=== PATIENT | male | born 1970 | race Caucasian/White ===

== ENCOUNTER 2017-06-13 15:15 | Emergency (ER) | payer BC, OTHER ==
[~2017-06-13] VITALS: Ht 188 cm; Wt 99.6 kg
[~2017-06-13 15:15] MED LIST: GLC/500 PO; LRS10 PO; MTR800 PO; NRN300 PO; NRN600 PO; OXYC7.5T62 PO
[2017-06-13 15:18] VITALS: TEMP 36.6; Ht 188 cm; Wt 99.6 kg
[2017-06-13] MEDS ORDERED: HYDROmorphone INJ 2 MG/ML SYR/VIAL IM STA (15:49)
[2017-06-13] MEDS ORDERED: CYCLOBENZAPRINE HCL 10 MG TAB PO STA (15:49)
[2017-06-13] MEDS ORDERED: KETOROLAC TROMETHAMINE 60 MG/2 ML VIAL IM STA (15:49)
[2017-06-13] MEDS ORDERED: ONDANSETRON 4MG OD TAB PO STA (15:49)
[2017-06-13] MEDS ORDERED: GLC/500 PO (16:14)
--- NOTE | 2017-06-13 16:33 | DIAGNOSTIC IMAGING REPORT ---
L SHOULDER MIN 2 VIEWS ROUTINE CLINICAL HISTORY: LEFT SHOULDER PAIN COMPARISON: None. DISCUSSION: No acute fractures or dislocations are visualized. There is a humeral head bone island. There are postsurgical changes within the cervical spine. IMPRESSION: No fractures or dislocations identified. No destructive lesions are visualized on conventional radiographic imaging Electronically signed by: Leonid Torres M.D. 06/13/2017 4:31 PM Dictated Date/Time: 06/13/2017 4:30 PM
--- NOTE | 2017-06-13 16:35 | DIAGNOSTIC IMAGING REPORT ---
C-SPINE ROUTINE 4 OR 5 VIEWS CLINICAL HISTORY: LEFT CERVICAL RADICULOPATHY COMPARISON STUDY: 05/26/2012, CT scan dated 04/21/2015 FINDINGS: There are postsurgical changes of a C4-C6 spinal fusion. There is an anterior metallic plate at the C5-6 level. There are no acute fractures or subluxations. There are progressive degenerative changes at the C3-4 and C6-7 levels. IMPRESSION: Postsurgical change. Progressive degenerative changes at the C3-4 and C6-7 levels. Electronically signed by: Leonid Torres M.D. 06/13/2017 4:33 PM Dictated Date/Time: 06/13/2017 4:32 PM
[2017-06-13] MEDS ORDERED: METH4PAK PO (17:10)
[2017-06-13] MEDS ORDERED: LRS10 PO (17:10)
[2017-06-13] MEDS ORDERED: OXYC1TAB3 PO (17:10)
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
[2017-06-13 17:22] VITALS: BP 117/76; PULSE 64; O2SAT 96
== END 2017-06-13 17:23 | disposition home or self-care (01) ==
LOC: C.EDB 15:17 → C.EDD 17:23
DX: M54.2 Cervicalgia (principal); M25.512 Pain in left shoulder; M50.01 Cervical disc disorder with myelopathy, high cervical region; M50.023 Cervical disc disorder at C6-C7 level with myelopathy; E11.9 Type 2 diabetes mellitus without complications; Z79.899 Other long term (current) drug therapy; Z88.0 Allergy status to penicillin; Z88.6 Allergy status to analgesic agent

== ENCOUNTER 2022-01-13 16:23 | Inpatient (IN) ==
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
[2022-01-13 17:26] LABS: Appearance Urine Cloudy (Clear); Bacteria Urine Automated 2+ (Negative); Bilirubin Urine Negative (Negative); Blood Urine Negative (Negative); Color Urine Yellow; Epithelial Cell Urine Auto >30 /lpf (0-5); Glucose Urine UA Negative (Negative); Ketones Urine Negative (Negative); Leukocyte Esterase Urine 1+ (Negative); Nitrite Urine Negative (Negative); Protein Urine Negative (Negative); RBC Urine Automated 0-4 /hpf (0-4); Specific Gravity Urine 1.012 (1.000-1.030); Urobilinogen Urine Negative (Negative); pH Urine 5.5 (4.5-7.5)
[2022-01-13 17:27] LABS: Basophils # (auto) 0.05 K/uL (0-0.2); Basophils % (auto) 0.5 %; Eosinophils # (auto) 0.17 K/uL (0-0.50); Eosinophils % (auto) 1.6 %; Hematocrit (blood only) 42.7 % (40.1-51.0); Hemoglobin 14.6 g/dl (14.0-18.0); Immature Granulocytes # (auto) 0.04 K/uL (0.00-0.02); Immature Granulocytes % (auto) 0.4 %; Lymphocytes # (auto) 4.06 K/uL (1.2-3.4); Lymphocytes % (auto) 37.6 %; Mean Corpuscular Hemoglobin 30.9 pg (25.0-34.0); Mean Corpuscular Hgb Conc 34.2 g/dL (32.0-36.0); Mean Corpuscular Volume 90.5 fL (80.0-100.0); Mean Platelet Volume 10.5 fL (9.4-12.4); Monocytes # (auto) 0.66 K/uL (0.24-0.82); Monocytes % (auto) 6.1 %; Neutrophils # (auto) 5.82 K/uL (1.4-6.5); Neutrophils % (auto) 53.8 %; Platelet Count 226 K/uL (130-400); RDW Coefficient of Variation 12.9 % (11.5-14.5); RDW Standard Deviation 42.6 fL (36.4-46.3); Red Blood Count 4.72 M/uL (4.63-6.08)
[2022-01-13 17:49] LABS: Alanine Aminotransferase 47 U/L (7-52); Albumin Globulin Ratio 1.2 (0.9-2); Albumin Level 4.4 gm/dl (3.4-5.0); Alkaline Phosphatase 53 U/L (34-104); Anion Gap 8 (3-11); Aspartate Aminotransferase 22 U/L (13-39); BUN Creatinine Ratio 14.5 (10-20); Bilirubin,Total 0.5 mg/dl (0.2-1.0); Blood Urea Nitrogen 17 mg/dl (6-23); Calcium 9.8 mg/dl (8.5-10.1); Carbon Dioxide 29 mmol/L (21-32); Chloride 102 mmol/L (98-107); Est GFR (African American) 83.8 ml/min; Est GFR (Non-African American) 72.3 ml/min; Globulin 3.7 gm/dl (2.5-4.0); Glucose 296 mg/dl (70-99(Fasting)); Potassium 3.2 mmol/L (3.5-5.1); Sodium 139 mmol/L (136-145); Total Protein 8.1 gm/dl (6.0-8.3)
[2022-01-13] MEDS ORDERED: HYDROmorphone INJ 0.5 MG/0.5 ML SYR IV STA (19:07)
[2022-01-13] MEDS ORDERED: LIDOCAINE 5% 1 PATCH TD STA (19:07)
[2022-01-13] MEDS ORDERED: ONDANSETRON INJ 2 MG/ML 2 ML VIAL IV STA (19:07)
--- NOTE | 2022-01-13 19:09 | Emergency Department Note ---
History of Present Illness General Chief complaint: Lower Extremity Injury/Pain Stated complaint: REFERRED BY DOC,NECK AND BACK PAIN, Time Seen by Provider: 01/13/22 18:59 History of Present Illness This is a 51-year-old male that presents to the emergency department via private vehicle accompanied by female with complaints of "referred, Neck and back pain". The patient notes that on December 23 of this year he sustained an injury while at work. He was seen and evaluated in [place] at the emergency dep artment. He notes that he has had x-rays and CT scans since that time of his affected areas. Today he had a follow-up with [facility] and was evaluated in the spine department by Hayden Bradford PA-C. Patient states that he was referred here for further evaluation and management. Patient notes leg weakness. Patient notes severe back pain and over the past 5 days has been laying in bed secondary to his severe low back pain. Current pain at this time is severe. No bowel or bladder incontinence. No numbness or tingling in genital region. Home Medications Medication Instructions Recorded Confirmed Type acetaminophen 500 mg tablet 1,000 mg PO Q6H PRN Pain 01/13/22 01/13/22 History (Tylenol Extra Strength) ibuprofen 200 mg tablet 400 mg PO Q6H PRN Pain 01/13/22 01/13/22 History prednisone 20 mg tablet 60 mg PO DAILY 01/13/22 01/13/22 History Allergies Allergy/AdvReac Type Severity Reaction Status Date / Time Penicillins Allergy Mild HIVES Verified 01/13/22 19:49 morphine AdvReac Intermediate n&v Verified 01/13/22 19:49 Past Med/Surg History Medical History Cervical radiculopathy Diabetes Shoulder pain Surgical History H/O wrist surgery Family History (Updated 02/01/19 @ 09:28 by Renu Osorio) Mother Cancer Social History Smoking Status: Never smoker Preferred Language: Portuguese Hearing Ability: Normal Feels Safe at Home: Yes Review of Systems A total of 10 systems reviewed and were otherwise negative Physical Exam Vital Signs Vital Signs - 24 hr 01/13/22 16:49 01/13/22 20:29 01/13/22 20:30 Temperature 36.8 C Temperature Source Temporal Artery Scan Pulse Rate 107 H Pulse Rate from SpO2 Sensor 58 L Respiratory Rate 18 Respiratory Effort / Characteristics Non-Labored Respiratory Depth Normal Blood Pressure 187/118 H 146/97 H Blood Pressure Mean 141 113 Pulse Oximetry 97 96 Oxygen Delivery Method Room Air Sepsis Recent Fever Within 48 Hours No Sepsis New/Unexplained Change in Mental Status No Sepsis Action Taken by Nursing No Action Required 01/13/22 20:30 01/13/22 20:40 01/13/22 20:50 Temperature Temperature Source Pulse Rate Pulse Rate from SpO2 Sensor 58 L 75 74 Respiratory Rate Respiratory Effort / Characteristics Respiratory Depth Blood Pressure Blood Pressure Mean Pulse Oximetry 96 97 97 Oxygen Delivery Method Sepsis Recent Fever Within 48 Hours Sepsis New/Unexplained Change in Mental Status Sepsis Action Taken by Nursing 01/13/22 21:00 01/13/22 21:00 01/13/22 21:10 Temperature Temperature Source Pulse Rate Pulse Rate from SpO2 Sensor 67 61 Respiratory Rate Respiratory Effort / Characteristics Respiratory Depth Blood Pressure 159/97 H Blood Pressure Mean 117 Pulse Oximetry 96 98 Oxygen Delivery Method Sepsis Recent Fever Within 48 Hours Sepsis New/Unexplained Change in Mental Status Sepsis Action Taken by Nursing VITAL SIGNS - Vital signs and nursing notes were reviewed. Hypertensive, otherwise stable. GENERAL - 51-year-old male appearing his stated age who is in no acute distress. Communicates well with provider and answers questions appropriately. SKIN - Without rashes. HEAD - NC/AT. EYES - Sclera anicteric. EARS - No deformities of external structures noted on gross examination bilaterally. NOSE - Midline and without cyanosis. No epistaxis or purulent drainage noted. MOUTH/OROPHARYNX - Without perioral cyanosis. NECK - Neck with FROM. No nuchal rigidity. LUNGS - Chest wall symmetric without accessory muscle use, intercostals retractions, or central cyanosis. Normal vesicular breath sounds CTA B/L. No wheezes, rales, or rhonchi appreciated. CARDIAC - RRR with S1/S2. No murmur, rubs, or gallops appreciated. ABDOMEN - Abdominal contour normal without pulsations or visible masses. BS normoactive all four quadrants. No tenderness, palpable masses, hepatosplenomegaly, or ascites noted. EXTREMITIES - No clubbing or peripheral cyanosis. +5/5 strength noted in UE/LE bilaterally. Patient slow to move his lower extremities noting discomfort in the low back. Sensory intact throughout the lower extremities. NEUROLOGIC - Cranial nerves II through XII grossly intact. PSYCH - A&O, and cooperates fully with examiner. Pt is very pleasant and interacts well with examiner. Course Administered Medications Discontinued Medications Hydromorphone HCl (Hydromorphone Inj 0.5 Mg/0.5 Ml Syr) 0.5 mg IV NOW STA Stop: 01/13/22 19:08 Last Admin: 01/13/22 19:28 Dose: 0.5 mg Documented By: [id number] Lidocaine (Lidocaine 5% 1 Patch) 1 patch TD NOW STA Stop: 01/13/22 19:08 Last Admin: 01/13/22 19:29 Dose: 1 patch Documented By: [id number] Ondansetron HCl (Ondansetron Inj 2 Mg/Ml 2 Ml Vial) 4 mg IV NOW STA Stop: 01/13/22 19:08 Last Admin: 01/13/22 19:30 Dose: 4 mg Documented By: [id number] Medical Decision Making Laboratory Data Result diagrams: 01/13/22 17:02 01/13/22 17:02 Lab Results 01/13/22 01/13/22 01/13/22 Range/Units 17:01 17:02 17:02 WBC 10.80 (4.8-10.8) K/ul RBC 4.72 (4.63-6.08) M/uL Hgb 14.6 (14.0-18.0) g/dl Hct 42.7 (40.1-51.0) % MCV 90.5 (80.0-100.0) fL MCH 30.9 (25.0-34.0) pg MCHC 34.2 (32.0-36.0) g/dL RDW Std Deviation 42.6 (36.4-46.3) fL RDW Coeff of Tulio 12.9 (11.5-14.5) % Plt Count 226 (130-400) K/uL MPV 10.5 (9.4-12.4) fL Immature Gran % (Auto) 0.4 % Neut % (Auto) 53.8 % Lymph % (Auto) 37.6 % [place] % (Auto) 6.1 % Eos % (Auto) 1.6 % Baso % (Auto) 0.5 % Neut # (Auto) 5.82 (1.4-6.5) K/uL Lymph # (Auto) 4.06 H (1.2-3.4) K/uL [place] # (Auto) 0.66 (0.24-0.82) K/uL Eos # (Auto) 0.17 (0-0.50) K/uL Baso # (Auto) 0.05 (0-0.2) K/uL Immature Gran # (Auto) 0.04 H (0.00-0.02) K/uL Sodium 139 (136-145) mmol/L Potassium 3.2 L (3.5-5.1) mmol/L Chloride 102 (98-107) mmol/L Carbon Dioxide 29 (21-32) mmol/L Anion Gap 8 (3-11) BUN 17 (6-23) mg/dl Creatinine 1.17 (0.6-1.4) mg/dl Est Cr Clr Drug Dosing Not Reportable Est GFR ( Amer) 83.8 ml/min Est GFR (Non-Af Amer) 72.3 ml/min BUN/Creatinine Ratio 14.5 (10-20) Glucose 296 H (70-99(Fasting)) mg/dl Calcium 9.8 (8.5-10.1) mg/dl Total Bilirubin 0.5 (0.2-1.0) mg/dl AST 22 (13-39) U/L ALT 47 (7-52) U/L Alkaline Phosphatase 53 (34-104) U/L Total Protein 8.1 (6.0-8.3) gm/dl Albumin 4.4 (3.4-5.0) gm/dl Globulin 3.7 (2.5-4.0) gm/dl Albumin/Globulin Ratio 1.2 (0.9-2) Urine Color Yellow Urine Appearance Cloudy A (Clear) Urine pH 5.5 (4.5-7.5) Ur Specific [place] 1.012 (1.000-1.030) Urine Protein Negative (Negative) Urine Glucose (UA) Negative (Negative) Urine Ketones Negative (Negative) Urine Blood Negative (Negative) Urine Nitrite Negative (Negative) Urine Bilirubin Negative (Negative) Urine Urobilinogen Negative (Negative) Ur Leukocyte Esterase 1+ H (Negative) Urine WBC (Auto) 5-10 H (0-5) /hpf Urine RBC (Auto) 0-4 (0-4) /hpf U Hyaline Cast (Auto) 1-5 (0-5) /lpf U Epithel Cells (Auto) >30 H (0-5) /lpf Urine Bacteria (Auto) 2+ H (Negative) SARS-CoV-2, RNA, NAAT (NEGATIVE) 01/13/22 Range/Units 19:40 WBC (4.8-10.8) K/ul RBC (4.63-6.08) M/uL Hgb (14.0-18.0) g/dl Hct (40.1-51.0) % MCV (80.0-100.0) fL MCH (25.0-34.0) pg MCHC (32.0-36.0) g/dL RDW Std Deviation (36.4-46.3) fL RDW Coeff of Tulio (11.5-14.5) % Plt Count (130-400) K/uL MPV (9.4-12.4) fL Immature Gran % (Auto) % Neut % (Auto) % Lymph % (Auto) % [place] % (Auto) % Eos % (Auto) % Baso % (Auto) % Neut # (Auto) (1.4-6.5) K/uL Lymph # (Auto) (1.2-3.4) K/uL [place] # (Auto) (0.24-0.82) K/uL Eos # (Auto) (0-0.50) K/uL Baso # (Auto) (0-0.2) K/uL Immature Gran # (Auto) (0.00-0.02) K/uL Sodium (136-145) mmol/L Potassium (3.5-5.1) mmol/L Chloride (98-107) mmol/L Carbon Dioxide (21-32) mmol/L Anion Gap (3-11) BUN (6-23) mg/dl Creatinine (0.6-1.4) mg/dl Est Cr Clr Drug Dosing Est GFR ( Amer) ml/min Est GFR (Non-Af Amer) ml/min BUN/Creatinine Ratio (10-20) Glucose (70-99(Fasting)) mg/dl Calcium (8.5-10.1) mg/dl Total Bilirubin (0.2-1.0) mg/dl AST (13-39) U/L ALT (7-52) U/L Alkaline Phosphatase (34-104) U/L Total Protein (6.0-8.3) gm/dl Albumin (3.4-5.0) gm/dl Globulin (2.5-4.0) gm/dl Albumin/Globulin Ratio (0.9-2) Urine Color Urine Appearance (Clear) Urine pH (4.5-7.5) Ur Specific [place] (1.000-1.030) Urine Protein (Negative) Urine Glucose (UA) (Negative) Urine Ketones (Negative) Urine Blood (Negative) Urine Nitrite (Negative) Urine Bilirubin (Negative) Urine Urobilinogen (Negative) Ur Leukocyte Esterase (Negative) Urine WBC (Auto) (0-5) /hpf Urine RBC (Auto) (0-4) /hpf U Hyaline Cast (Auto) (0-5) /lpf U Epithel Cells (Auto) (0-5) /lpf Urine Bacteria (Auto) (Negative) SARS-CoV-2, RNA, NAAT NEGATIVE (NEGATIVE) Imaging Data Radiologist's Impression: Lumbar Spine MRI 01/13/22 16:54 MRI OF THE LUMBAR SPINE WITHOUT IV CONTRAST CLINICAL HISTORY: Low back pain. Leg weakness. COMPARISON STUDY: No priors. TECHNIQUE: MRI of the lumbar spine is performed utilizing various T1 and T2- weighted sequences in the axial and sagittal planes. IV contrast was not administered for this examination. The examination is modestly degraded by motion artifact. FINDINGS: Lumbar spine: Vertebral body height and alignment are maintained throughout the lumbar spine. Normal marrow signal intensity is preserved throughout the visualized bony structures. Tiny anterior and lateral marginal osteophytes are seen throughout. The transverse and spinous processes appear intact. There is no evidence of spondylolysis. No destructive bony lesion is seen. Intervertebral discs: Mild degenerative disc desiccation is seen in the lower lumbar region. The disc spaces are maintained. Spinal cord: The visualized spinal cord is normal in morphology and signal intensity. The conus medullaris terminates at the T12-L1 interspace. The nerve roots of the cauda equina are normal in morphology. L1-L2: Unremarkable. L2-L3: Unremarkable. L3-L4: There is broad-based posterior disc bulge which abuts the transiting nerve roots. Annular fissure is noted. There is no significant acquired compromise of the central canal at this level. Lateral disc bulge seen bilaterally and contributes to subarticular stenosis. This may impinge on the exiting bilateral L3 nerve roots. In conjunction with facet arthropathy, there is mild bilateral neural foraminal stenosis. L4-L5: There is posterior disc herniation with annular fissure. This impinges on the transiting nerve roots and causes severe central canal stenosis. The minimal AP canal diameter at this level is 4.5 mm. Lateral disc bulge is seen bilaterally, left greater than right. This impinges on the exiting bilateral L4 nerve roots. In conjunction with facet arthropathy, there is moderate to severe bilateral neuroforaminal stenosis. L5-S1: Unremarkable. Sacrum: The visualized sacrum is normal in morphology and signal intensity. Soft tissues: The paraspinous soft tissues are within normal limits. The visualized retroperitoneal structures are grossly unremarkable but incompletely evaluated. IMPRESSION: 1. Disc herniation at L4-L5 which contributes to severe central canal stenosis. There is impingement on the exiting bilateral L4 nerve roots at this level. 2. Degenerative disc disease is also seen at L3-L4. See discussion for detailed level by level analysis. 3. No destructive bony process is identified. Dictated: 01/13/2022 6:00 PM Transcribed: 01/13/2022 6:17 PM Rosalie [id number] [facility] Electronically signed by: Jim Guido M.D. 01/13/2022 8:33 PM MDM Narrative Patient was seen and evaluated as above in room A02. Review was performed of nursing notes and vital signs. I did evaluate the patient in triage and then formally in room A2. After obtaining a thorough history and physical examination the above work up was performed. Patient presents to us today for evaluation of low back pain, lower extremity weakness referred by local marketing analytics specialist. Patient clinically appears to be in pain but is neurovascularly intact. Options of care were discussed with the patient. IV access was established. He was medicated with IV analgesia and also provided antiemetics. Patient notes he has tolerated this type of analgesia before without issue. Labs were drawn. MRI of the L-spine was obtained. MRI results as above. There is a disc herniation at L4-L5 which contributes to severe central canal stenosis. There is impingement on the exiting bilateral L4 nerve roots at this level. This clinically correlates with his presentation. Labs reveal no leukocytosis or concerning anemia. Mild hypokalemia 3.2. Glucose 296. Patient is currently on prednisone. Urinalysis reveals what is likely a contaminated sample. COVID te sting negative. I discussed presentation with Hayden Bradford PA-C the on- order desk caller for the spine team. He was the one that referred the patient in. He was familiar with the patient case. At this time inpatient management will be pursued and he will be evaluated in the a.m. by the spine team. Case then discussed with the hospitalist. Patient amenable to plan of care. Please refer to further documentation regarding his stay. GCS: 15 In the evaluation and treatment of this patient the following differential diagnosis entertained: Fracture, dislocation, subluxation, cauda equina syndrome, AAA, diverticulitis, appendicitis, torsion, osteomyelitis, piriformis syndrome, strain, sprain, among others. Impression & Plan Low back pain, Abnormal MRI, lumbar spine Discharge Plan Visit Data Chief Complaint: Lower Extremity Injury/Pain Stated Complaint: REFERRED BY DOC,NECK AND BACK PAIN, ED Provider: Angel Bee ED Midlevel Provider: Karan Land Discharge Problem: Low back pain, Abnormal MRI, lumbar spine Patient Disposition: Admitted As Inpatient Condition: Good
--- NOTE | 2022-01-13 20:35 | Magnetic Resonance Report ---
MRI OF THE LUMBAR SPINE WITHOUT IV CONTRAST CLINICAL HISTORY: Low back pain. Leg weakness. COMPARISON STUDY: No priors. TECHNIQUE: MRI of the lumbar spine is performed utilizing various T1 and T2-weighted sequences in the axial and sagittal planes. IV contrast was not administered for this examination. The examination is modestly degraded by motion artifact. FINDINGS: Lumbar spine: Vertebral body height and alignment are maintained throughout the lumbar spine. Normal marrow signal intensity is preserved throughout the visualized bony structures. Tiny anterior and lat eral marginal osteophytes are seen throughout. The transverse and spinous processes appear intact. Th ere is no evidence of spondylolysis. No destructive bony lesion is seen. Intervertebral discs: Mild degenerative disc desiccation is seen in the lower lumbar region. The disc spaces are maintained. Spinal cord: The visualized spinal cord is normal in morphology and signal intensity. The conus medul elyse terminates at the T12-L1 interspace. The nerve roots of the cauda equina are normal in morpholo gy. L1-L2: Unremarkable. L2-L3: Unremarkable. L3-L4: There is broad-based posterior disc bulge which abuts the transiting nerve roots. Annular fiss ure is noted. There is no significant acquired compromise of the central canal at this level. Lateral disc bulge seen bilaterally and contributes to subarticular stenosis. This may impinge on the exitin g bilateral L3 nerve roots. In conjunction with facet arthropathy, there is mild bilateral neural for aminal stenosis. L4-L5: There is posterior disc herniation with annular fissure. This impinges on the transiting nerve roots and causes severe central canal stenosis. The minimal AP canal diameter at this level is 4.5 m m. Lateral disc bulge is seen bilaterally, left greater than right. This impinges on the exiting bila teral L4 nerve roots. In conjunction with facet arthropathy, there is moderate to severe bilateral ne uroforaminal stenosis. L5-S1: Unremarkable. Sacrum: The visualized sacrum is normal in morphology and signal intensity. Soft tissues: The paraspinous soft tissues are within normal limits. The visualized retroperitoneal s tructures are grossly unremarkable but incompletely evaluated. IMPRESSION: 1. Disc herniation at L4-L5 which contributes to severe central canal stenosis. There is impingement on the exiting bilateral L4 nerve roots at this level. 2. Degenerative disc disease is also seen at L3-L4. See discussion for detailed level by level analys is. 3. No destructive bony process is identified. Dictated: 01/13/2022 6:00 PM Transcribed: 01/13/2022 6:17 PM Rosalie [id number] [facility] Electronically signed by: Jim Guido M.D. 01/13/2022 8:33 PM
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
[2022-01-13] MEDS ORDERED: HYDROmorphone INJ 0.5 MG/0.5 ML SYR IV PRN ×2 (22:24)
[2022-01-13] MEDS ORDERED: GLUCAGON FOR INJ 1 MG VIAL SQ PRN (22:24)
[2022-01-13] MEDS ORDERED: GLUCOSE 40% GEL 15 GM TUBE PO PRN (22:24)
[2022-01-13] MEDS ORDERED: ONDANSETRON INJ 2 MG/ML 2 ML VIAL IV PRN (22:24)
[2022-01-13] MEDS ORDERED: ACETAMINOPHEN 500 MG TAB PO PRN (22:24)
[2022-01-13] MEDS ORDERED: DEXTROSE 50% 50 ML SYRINGE IV PRN (22:24)
[2022-01-13] MEDS ORDERED: GLUCOSE 10 TAB/TUBE PO PRN (22:24)
[2022-01-13] MEDS ORDERED: CARBOHYDRATES FOR HYPOGLYCEMIA PO PRN (22:24)
--- NOTE | 2022-01-13 23:03 | Billing Data ---
Date of Service January 13, 2022 Coding Level of Care Code 32794 Initial Inpt Care Lvl 3
[2022-01-13] MEDS: INSULIN ASPART PER UNIT SC SCH (23:05)
[2022-01-13] MEDS: dexAMETHasone 4 MG in SYRINGE 0 ML IV SCH (23:47)
[2022-01-14] MEDS ORDERED: HYDROmorphone INJ 0.5 MG/0.5 ML SYR IV PRN (01:41)
[2022-01-14] MEDS ORDERED: FLUARIX QUADRIVALENT 0.5 ML SYR IM ONE (01:49)
[2022-01-14] MEDS: HYDROmorphone INJ 0.5 MG/0.5 ML SYR IV PRN ×4 (01:53→16:35)
[2022-01-14] MEDS: INSULIN ASPART PER UNIT SC SCH ×3 (06:29→22:45)
[2022-01-14 07:05] LABS: Basophils # (auto) 0.03 K/uL (0-0.2); Basophils % (auto) 0.3 %; Eosinophils # (auto) 0.05 K/uL (0-0.50); Eosinophils % (auto) 0.5 %; Hematocrit (blood only) 40.7 % (40.1-51.0); Immature Granulocytes # (auto) 0.05 K/uL (0.00-0.02); Immature Granulocytes % (auto) 0.5 %; Lymphocytes # (auto) 1.59 K/uL (1.2-3.4); Lymphocytes % (auto) 17.4 %; Mean Corpuscular Hemoglobin 31.1 pg (25.0-34.0); Mean Corpuscular Hgb Conc 34.4 g/dL (32.0-36.0); Mean Corpuscular Volume 90.4 fL (80.0-100.0); Mean Platelet Volume 10.5 fL (9.4-12.4); Monocytes % (auto) 2.2 %; Neutrophils % (auto) 79.1 %; Platelet Count 198 K/uL (130-400); White Blood Count 9.12 K/ul (4.8-10.8)
[2022-01-14 07:22] LABS: Estimated Average Glucose 166 mg/dl; Hemoglobin A1C 7.4 % (4.5-5.6)
[2022-01-14 07:40] LABS: Albumin Level 3.9 gm/dl (3.4-5.0); Calcium 9.3 mg/dl (8.5-10.1); Creatinine Clr Calc Pharmacy 102.8 ml/min; Est GFR (African American) 101.3 ml/min; Est GFR (Non-African American) 87.4 ml/min; Magnesium 1.8 mg/dl (1.7-2.4); Phosphorus 3.1 mg/dl (2.5-4.9)
[2022-01-14] MEDS ORDERED: Nursing to Pharmacy Communication SCH ×2 (08:15→16:15)
[2022-01-14] MEDS: dexAMETHasone 4 MG in SYRINGE 0 ML IV SCH (09:24)
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
--- NOTE | 2022-01-14 10:17 | Anesthesiology Consultation ---
Date of Service January 14, 2022 Assessment & Plan Chart Review Chart Review: Acceptable Risk for Surgery and Patient NOT seen in Pre Admission Testing Consults Requested none ASA ASA2 Proposed Anesthesia Anesthesia Type: General History Surgery Operation Date: 01/14/22 09:05 Proposed Procedures p L3-L4, L4-L5 Decompression and Fusion - Petr Malone DO Height/Weight Height: 6 ft 2 in Weight: 92.9 kg Allergies Allergy/AdvReac Type Severity Reaction Status Date / Time Penicillins Allergy Mild HIVES Verified 01/13/22 19:49 morphine AdvReac Intermediate n&v Verified 01/13/22 19:49 Medications Home Medications Medication Instructions Recorded Confirmed Last Taken acetaminophen 500 mg tablet 1,000 mg PO Q6H PRN Pain 01/13/22 01/13/22 Unknown (Tylenol Extra Strength) ibuprofen 200 mg tablet 400 mg PO Q6H PRN Pain 01/13/22 01/13/22 Unknown prednisone 20 mg tablet 60 mg PO DAILY 01/13/22 01/13/22 01/12/22 Active Medications Generic Name Dose Route Start Last Admin Trade Name Guero PRN Reason Stop Dose Admin Hydromorphone HCl 0.5 mg 01/14/22 01:41 01/14/22 08:59 Hydromorphone Inj 0.5 Mg/0.5 Ml Syr IV 01/27/22 22:23 0.5 mg Q2H PRN Administration Severe Pain Dexamethasone 4 mg/ Syringe 1 mls @ 1 mls/min 01/13/22 22:24 01/14/22 09:24 IV 02/12/22 22:23 1 mls/min Q12 NARENDRA Administration Past Medical History Medical History Cervical radiculopathy Diabetes Shoulder pain Exercise / Class Metabolic Activity III < 4 Walking/Shop/Light housework Past Family History Family History Mother Cancer Past Surgical History Surgical History H/O wrist surgery Past Anesthesia History No Hx of Anesthesia Complications and No Family Hx of Anesthesia Complications History of PONV No Hx of PONV and No Hx of Motion Sickness Social History Smoking Status: Never smoker Hx Alcohol Use: No Hx Substance Use: No Physical Exam Vital Signs Last Vital Signs Temp 36.5 C 01/14/22 07:31 Pulse 61 01/14/22 07:31 Resp 16 01/14/22 07:31 BP 153/85 H 01/14/22 07:31 Pulse Ox 95 01/14/22 07:31 O2 Del Method 01/14/22 07:31 Testing Laboratory Results 01/14/22 06:41 01/14/22 06:41 Hemoglobin A1c 7.4 % (4.5-5.6) H 01/14/22 06:41 Urine Color Yellow 01/13/22 17:01 Urine Appearance Cloudy (Clear) A 01/13/22 17:01 Urine pH 5.5 (4.5-7.5) 01/13/22 17:01 Ur Specific [place] 1.012 (1.000-1.030) 01/13/22 17:01 Urine Protein Negative (Negative) 01/13/22 17:01 Urine Glucose (UA) Negative (Negative) 01/13/22 17:01 Urine Ketones Negative (Negative) 01/13/22 17:01 Urine Nitrite Negative (Negative) 01/13/22 17:01 Ur Leukocyte Esterase 1+ (Negative) H 01/13/22 17:01 Urine WBC (Auto) 5-10 /hpf (0-5) H 01/13/22 17:01 Urine RBC (Auto) 0-4 /hpf (0-4) 01/13/22 17:01 U Hyaline Cast (Auto) 1-5 /lpf (0-5) 01/13/22 17:01 U Epithel Cells (Auto) >30 /lpf (0-5) H 01/13/22 17:01 Urine Bacteria (Auto) 2+ (Negative) H 01/13/22 17:01 01/13/22 17:01 Urine Culture - Preliminary Urine,Clean Catch Gram negative bacilli 01/14/22 01/13/22 06:09 22:57 POC Glucose 216 H 277 H
[2022-01-14] MEDS ORDERED: INSULIN HUMAN REGULAR PER UNIT 10 UNITS in SYRINGE 0 ML IV STA (10:47)
[2022-01-14] MEDS ORDERED: NALOXONE HCL 0.4 MG/1 ML VIAL/CARP IV PRN ×2 (10:51→15:10)
[2022-01-14] MEDS ORDERED: ONDANSETRON INJ 2 MG/ML 2 ML VIAL IV PRN ×2 (10:51→15:10)
[2022-01-14] MEDS ORDERED: PROMETHAZINE HCL 12.5 MG in SODIUM CHLORIDE 0.9% 50 ML IV PRN ×2 (10:51→15:10)
[2022-01-14] MEDS ORDERED: FLUMAZENIL 0.1 MG/1 ML 10 ML VIAL IV PRN (10:51)
[2022-01-14] MEDS ORDERED: ATROPINE SULFATE 0.1 MG/ML 10ML SYR IV PRN (10:51)
[2022-01-14] MEDS ORDERED: ePHEDrine sulfate 50 MG/ML AMP IV PRN (10:51)
[2022-01-14] MEDS ORDERED: LABETALOL HCL IV 5 MG/ML 20ML IV PRN (10:51)
[2022-01-14] MEDS ORDERED: MIDAZOLAM HCL 1 MG/ML 2ML VIAL ONE (10:56)
[2022-01-14] MEDS ORDERED: SUCCINYLCHOLINE CHLORIDE 20 MG/ML 10 ML VIAL IV ONE (10:57)
[2022-01-14] MEDS ORDERED: ROCURONIUM BROMIDE 10 MG/ML 5 ML VIAL IV ONE ×3 (10:57→11:55)
[2022-01-14] MEDS ORDERED: fentaNYL citrate 100 MCG/2 ML VIAL ONE ×2 (10:57→12:38)
[2022-01-14] MEDS ORDERED: LIDOCAINE 2% MPF LOCAL 5 ML VIAL INFIL ONE (10:57)
[2022-01-14] MEDS ORDERED: PROPOFOL IV EMULSION 10 MG/ML 20 ML VIAL IV ONE (10:57)
--- NOTE | 2022-01-14 11:01 | Communication Note ---
Date of Service: January 14, 2022 01/14/2022-EKG-SB@ 58
[2022-01-14] MEDS ORDERED: ceFAZolin 330 MG/ML 1 GM VIAL ONE ×2 (11:03→11:41)
[2022-01-14] MEDS ORDERED: BUPIVACAINE/EPINEPHRINE 0.25% 1:200,000 30 ML VIAL ONE (11:03)
--- NOTE | 2022-01-14 11:22 | History & Physical Bridge Note ---
Date of Service January 14, 2022 History & Physical Bridge Note I have examined the patient, reviewed the History & Physical and in the interval since the performance of the History & Physical I have noted the following changes of clinical significance: no changes noted Lumbar decompression and fusion L3-L4 L4-L5
[2022-01-14] MEDS ORDERED: DEXAMETHASONE SOD INJ 4 MG/ML VIAL ONE (11:55)
[2022-01-14] MEDS ORDERED: ONDANSETRON INJ 2 MG/ML 2 ML VIAL ONE (11:55)
[2022-01-14] MEDS ORDERED: GLYCOPYRROLATE 0.2 MG/ML VIAL ONE (11:55)
[2022-01-14] MEDS ORDERED: NEOSTIGMINE METHYLSULFATE 1 MG/ML 10ML VIAL ONE (11:55)
[2022-01-14] MEDS ORDERED: INSULIN ASPART PER UNIT SC SCH (12:00)
[2022-01-14] MEDS ORDERED: FLOSEAL HEMOSTATIC MATRIX 10ML TOP ONE ×2 (12:03→12:08)
--- NOTE | 2022-01-14 13:42 | Operative Report ---
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 #2 posterior spinal fusion L3-L4 L4-5. #3 placement posterior instrumentation L3-L4 L4-5. #4 interbody fusion L3-L4 L4-5. #5 placement of Spira 15 x 26 mm cage at L3-L4 L4-L5. #6 placement locally harvested morselized autograft in the posterior gutters. #7 placement of I factor combined with V toss in the interbody space and posterior lateral gutters. Surgeon Petr Malone, Distribution Designer Hannah Smith Estimated Blood Loss 250 Findings Consistent with Post-Op Diagnosis Specimens None Indications This is a 51-year-old male who presents the emergency room with marked decline in status and inability to ambulate secondary to leg pain and weakness. This morning upon my evaluation he is noting continued bilateral leg pain and inability to ambulate and states he has had incontinence of bowel and bladder. He notes perineal numbness particular on the left greater than the right upper thigh. In light of this marked decline in MRI findings we performed an emergent decompression and fusion. Description of Procedure Patient was met with identified informed consent obtained. Patient was then taken to the operative suite underwent a patient placed in a prone position the [place] table top Kevyn frame. All bony prominences well-padded eyes inspected to ensure no external pressure placed upon the. This point lumbar spine was prepped and draped in a sterile fashion. Sharp dissection with the assistance of Bovie cautery was performed down to and exposing the lamina transverse processes of L3-L4-L5 bilaterally. From caudal to cephalad fashion complete laminectomy of L4 and L5 and L3 was performed including bilateral medial facetectomies and foraminotomies. Obvious epidural swelling and hematoma was noted dorsal to the thecal sac at L4-L5. Significant disc material noted under the rootlets at the 4 5 level bilaterally as well as an extraforaminal disc identified at L3-4 on the left. After complete decompression removal of discriminations pedicle screws were placed in L3 L4-5 bilaterally with assistance of fluoroscopy and appropriately sized gabby placed. By way of a transforaminal approach and left complete discectomy of L for L5 was performed endplates curetted to subcortical bone and a 15 x 26 mm spiral cage with I fa ctor tapped in position. Then proceeded to L3-L4 to get by way of a transfemoral approach and left complete discectomy performed endplates curetted to subcortical bleeding bone and again a 15 x 26 mm spiral cage with I factor tapped in position. The rods were then compressed locked in final position bilaterally. The transverse processes of L3 L4-5 burred to subcortically bone. I factor bone of the test and locally harvested morselized autograft was placed in the posterior gutters. 15 round RAMIREZ drain inserted. The incision was then closed with 1 Vicryl the fascia 2-0 Vicryl subcutaneously and 4 Monocryl for final skin closure. Steri-Strips sterile dressings placed. Patient waken taken to recovery in stable condition. Please note spinal cord monitoring was utilized at the procedure no changes noted. Lastly Hannah Smith was present at the entire surgeon while the patient positioning complex portions of the surgery and fascial closure. I attest to the content of the Intraoperative Record and any orders documented therein. Any exceptions are noted below.
[2022-01-14] MEDS: fentaNYL citrate 100 MCG/2 ML VIAL IV PRN ×4 (13:54→14:10)
[2022-01-14] MEDS: HYDROmorphone INJ 1 MG/ML SYRINGE IV PRN ×7 (14:15→20:53)
--- NOTE | 2022-01-14 14:21 | Fluoroscopy Report ---
FL lumbar spine 2-3V CLINICAL HISTORY: L3-L5 decompression and fusion. COMPARISON STUDY: None. FLUOROSCOPY TIME: 27 seconds. FINDINGS: 2 fluoroscopic spot images of the lumbar spine demonstrate posterior decompression and fusi on from L3 through L5 with pedicle screws and rods. Hardware appears intact. Disc spacers are in good position. IMPRESSION: Fluoroscopic assistance provided for L3-L5 posterior decompression and fusion. ACT 112: Negative or not required by law. Electronically signed by: Joe Singh M.D. 01/14/2022 2:20 PM
--- NOTE | 2022-01-14 14:57 | Anesthesiology Progress Note ---
Date of Service January 14, 2022 Anesthesia Post Procedure Vital Signs Vital Signs: Temp Pulse Pulse Pulse Resp BP BP 01/14/22 14:50 36.3 C L 67 12 01/14/22 14:40 71 15 01/14/22 14:30 75 12 01/14/22 14:20 78 18 01/14/22 14:10 78 18 01/14/22 14:00 75 12 01/14/22 13:50 36.5 C 94 H 14 01/14/22 10:34 36.9 C 71 18 01/14/22 07:31 36.5 C 61 16 153/85 H 01/14/22 01:40 36.3 C L 62 20 148/92 H 01/14/22 01:39 36.2 C L 64 18 01/13/22 21:40 01/13/22 21:30 01/13/22 21:20 01/13/22 21:10 01/13/22 21:00 01/13/22 21:00 159/97 H 01/13/22 20:50 01/13/22 20:40 01/13/22 20:30 01/13/22 20:30 146/97 H 01/13/22 20:29 01/13/22 16:49 36.8 C 107 H 18 187/118 H BP Pulse Ox O2 Del Method O2 Flow Rate 01/14/22 14:50 146/81 H 97 Nasal Cannula 2 01/14/22 14:40 152/87 H 97 Nasal Cannula 2 01/14/22 14:30 141/90 H 96 Nasal Cannula 2 01/14/22 14:20 159/91 H 95 Room Air 01/14/22 14:10 159/87 H 98 Oxymask 5 01/14/22 14:00 161/75 H 98 Oxymask 9 01/14/22 13:50 142/77 H 99 Oxymask 9 01/14/22 10:34 163/93 H 97 Room Air 01/14/22 07:31 95 Room Air 01/14/22 01:40 98 Room Air 01/14/22 01:39 170/91 H 97 Room Air 01/13/22 21:40 97 01/13/22 21:30 97 01/13/22 21:20 98 01/13/22 21:10 98 11/08/22 21:00 96 01/13/22 21:00 01/13/22 20:50 97 01/13/22 20:40 97 01/13/22 20:30 96 01/13/22 20:30 01/13/22 20:29 96 01/13/22 16:49 97 Room Air Pain Intensity Back: Pain Intensity: 8 Transfer of Care Handoff Completed per policy Notes Mental Status: alert / awake / arousable Patient Amnestic to Procedure: Yes Nausea / Vomiting: adequately controlled Pain: adequately controlled Airway Patency, RR, SpO2: stable & adequate BP & HR: stable & adequate Hydration State: stable & adequate Anesthetic Complications: no major complications apparent
[2022-01-14] MEDS ORDERED: ACETAMINOPHEN 1,000 MG/100 ML VIAL IV PRN (15:10)
[2022-01-14] MEDS ORDERED: ONDANSETRON 4 MG OD TAB PO PRN (15:10)
[2022-01-14] MEDS ORDERED: MAGNESIUM HYDROXIDE SUSP 30 ML UDC PO PRN (15:10)
[2022-01-14] MEDS ORDERED: SOD PHOSPHATE/SOD BIPHOSPHATE ENEMA 132 ML BTL PR PRN (15:10)
[2022-01-14] MEDS ORDERED: METOCLOPRAMIDE HCL INJ 5 MG/ML 2 ML VIAL IV PRN (15:10)
[2022-01-14] MEDS ORDERED: ACETAMINOPHEN 500 MG TAB PO PRN (15:10)
[2022-01-14] MEDS ORDERED: ALUMINUM/MAGNESIUM SUSP 30 ML UDC PO PRN (15:10)
[2022-01-14] MEDS ORDERED: bisacodyL 10 MG SUPP PR PRN (15:10)
[2022-01-14] MEDS ORDERED: traMADol HCL 50 MG TABLET PO PRN (15:10)
[2022-01-14] MEDS ORDERED: FAMOTIDINE 20 MG TAB PO PRN (15:10)
[2022-01-14] MEDS ORDERED: LORazepam 0.5 MG in SYRINGE 0 ML IV PRN (15:10)
[2022-01-14] MEDS: LACTATED RINGER'S 1,000 ML IV SCH ×2 (16:31→22:13)
--- NOTE | 2022-01-14 16:56 | Electrocardiogram Report ---
Test Reason : Blood Pressure : / mmHG Vent. Rate : 058 BPM Atrial Rate : 058 BPM P-R Int : 136 ms QRS Dur : 088 ms QT Int : 416 ms P-R-T Axes : 046 081 072 degrees QTc Int : 408 ms Sinus bradycardia Otherwise normal ECG When compared with ECG of 12-MAR-2014 15:07, No significant change was found Confirmed by David Tucker ([id number]) on 01/14/2022 4:55:40 PM Referred By: REFERRED SELF Confirmed By:David Tucker
[2022-01-14] MEDS: oxyCODONE HCL IR 5 MG TAB (IMMEDIATE RELEASE) PO PRN ×2 (18:20→22:12)
--- NOTE | 2022-01-14 21:30 | Hospitalist Progress Note ---
Date of Service January 14, 2022 Assessment & Plan (1) Low back pain: Plan: Low back pain/L4-5 herniated disc with central spinal canal stenosis/L3-4 degenerative disc disease with bilateral nerve root impingement- Admit to medical surgical floor Dexamethasone 4 mg IV every 12 hours, first dose tonight Discontinue oral prednisone Acetaminophen 650 mg p.o. every 6 hours. Mild pain or fever Dilaudid 0.25 mg IV every 3 hours as needed for moderate pain Dilaudid 0.5 mg IV every 3 hours as needed for severe pain Zofran 4 mg IV every 6 hours as needed Orthopedic spine surgery aware and will be consulted. Patient seen in AM on 01/14, discussed with Dr. Malone, he is aware of consult and will be seeing patient later today. (2) Abnormal MRI, lumbar spine: Plan: MRI as noted above (3) HNP (herniated nucleus pulposus) with myelopathy, cervical: Plan: History of cervical spine surgery with mild persistent neck discomfort (4) Diabetes: Plan: Patient reports having elevated blood sugar in the past, that was initially treated with insulin, which ultimately was able to be controlled with metformin, and then by diet alone. Glucose 296 on admission, secondary to being on oral prednisone Check hemoglobin A1c Placed on diabetic diet with Accu-Cheks before meals and at bedtime and NovoLog coverage If blood sugar becomes more significantly elevated, may require long-acting insulin while in hospital Admission and Anticipated Discharge Date Admission Date: January 13, 2022 Subjective Patient reports feeling well Pain is controlled. He is awaiting input from Dr. Malone Review of Systems Review of Systems: All systems reviewed & are unremarkable except as noted in HPI & below Physical Exam Physical Exam: The patient is awake, alert and oriented 3, well developed and well nourished, normocephalic and atraumatic, lying in bed and in no acute distress. HEENT--PERRL, EOMI, mucous membranes and oropharynx normal Neck--supple. No JVD. No bruits. Thyroid normal, trachea midline, no adenopathy. Heart--normal S1 and S2. No murmurs, rubs or gallops. Lungs--clear bilaterally, no respiratory distress, no accessory muscle use. Abdomen--normal bowel sounds and soft. Nontender. Nondistended, no hernias or masses, no organomegaly. Extremities--no cyanosis or clubbing. No edema. Dermatologic--normal skin turgor, normal color, no abnormal lymph nodes, no rash. Neurologic--cranial nerves II through XII grossly intact. Rheumatologic--normal range of motion. Psychiatric--normal affect. Results & Data Results & Data ([facility]) Vital Signs (Past 12 Hours) Vital Signs Temp Pulse Pulse Resp BP Pulse Ox O2 Del Method 01/14/22 19:21 36.8 C 67 20 135/76 98 Nasal Cannula 01/14/22 18:10 36.9 C 76 16 140/84 97 Nasal Cannula 01/14/22 17:10 36.7 C 86 18 148/74 H 96 Nasal Cannula 01/14/22 16:20 36.7 C 84 16 134/79 97 Nasal Cannula 01/14/22 15:50 78 16 154/72 H 96 01/14/22 15:11 36.6 C 82 14 150/77 H 95 Nasal Cannula 01/14/22 15:00 77 12 132/81 97 Nasal Cannula 01/14/22 14:50 36.3 C L 67 12 146/81 H 97 Nasal Cannula 01/14/22 14:40 71 15 152/87 H 97 Nasal Cannula 01/14/22 14:30 75 12 141/90 H 96 Nasal Cannula 01/14/22 14:20 78 18 159/91 H 95 Room Air 01/14/22 14:10 78 18 159/87 H 98 Oxymask 01/14/22 14:00 75 12 161/75 H 98 Oxymask 01/14/22 13:50 36.5 C 94 H 14 142/77 H 99 Oxymask 01/14/22 10:34 36.9 C 71 18 163/93 H 97 Room Air O2 Flow Rate 01/14/22 19:21 1.5 01/14/22 18:10 2 01/14/22 17:10 2 01/14/22 16:20 2 01/14/22 15:50 2 01/14/22 15:11 2 01/14/22 15:00 2 01/14/22 14:50 2 01/14/22 14:40 2 01/14/22 14:30 2 01/14/22 14:20 01/14/22 14:10 5 01/14/22 14:00 9 01/14/22 13:50 9 01/14/22 10:34 PG Care Time/CCT Total # of Minutes Spent Total Time Spent with Patient: Total time spent is greater than 50% in coordination of care (as documented) at patient's floor/unit and/or counseling patient: Coding Level of Care Code 57150 Subseq Hosp Care Lvl 2 Diagnoses Low back pain M54.50 Abnormal MRI, lumbar spine R93.7 HNP (herniated nucleus pulposus) with myelopathy, cervical M50.00 Diabetes E11.9
[2022-01-14] MEDS: CLINDAMYCIN/D5W 600 MG/50 ML BAG IV SCH (22:07)
[2022-01-14] MEDS: DOCUSATE SODIUM/SENNA 50/8.6MG TAB PO SCH (22:07)
[2022-01-14] MEDS: diphenhydrAMINE Capsule 25 MG CAP PO PRN (22:12)
[2022-01-15] MEDS: LORazepam 0.5 MG TAB PO PRN ×2 (00:38→20:12)
[2022-01-15] MEDS: HYDROmorphone INJ 1 MG/ML SYRINGE IV PRN ×5 (00:39→20:01)
[2022-01-15] MEDS: oxyCODONE HCL IR 5 MG TAB (IMMEDIATE RELEASE) PO PRN ×5 (02:02→22:55)
[2022-01-15] MEDS: CLINDAMYCIN/D5W 600 MG/50 ML BAG IV SCH (05:47)
[2022-01-15] MEDS: POLYETHYLENE (MIRALAX) 17 GM PACK PO SCH ×4 (05:48→22:56)
[2022-01-15] MEDS: LACTATED RINGER'S 1,000 ML IV SCH ×2 (06:33→11:20)
[2022-01-15 07:36] LABS: Basophils # (auto) 0.01 K/uL (0-0.2); Basophils % (auto) 0.1 %; Eosinophils # (auto) 0.06 K/uL (0-0.50); Eosinophils % (auto) 0.5 %; Hematocrit (blood only) 33.9 % (40.1-51.0); Hemoglobin 11.8 g/dl (14.0-18.0); Immature Granulocytes # (auto) 0.07 K/uL (0.00-0.02); Immature Granulocytes % (auto) 0.6 %; Lymphocytes # (auto) 3.16 K/uL (1.2-3.4); Lymphocytes % (auto) 28.3 %; Mean Corpuscular Hemoglobin 31.1 pg (25.0-34.0); Mean Corpuscular Hgb Conc 34.8 g/dL (32.0-36.0); Mean Corpuscular Volume 89.4 fL (80.0-100.0); Mean Platelet Volume 10.4 fL (9.4-12.4); Monocytes # (auto) 0.78 K/uL (0.24-0.82); Neutrophils # (auto) 7.07 K/uL (1.4-6.5); Neutrophils % (auto) 63.5 %; Platelet Count 151 K/uL (130-400); RDW Coefficient of Variation 12.7 % (11.5-14.5); RDW Standard Deviation 41.7 fL (36.4-46.3); Red Blood Count 3.79 M/uL (4.63-6.08); White Blood Count 11.15 K/ul (4.8-10.8)
[2022-01-15 07:57] LABS: Albumin Level 3.3 gm/dl (3.4-5.0); BUN Creatinine Ratio 22.2 (10-20); Calcium 8.6 mg/dl (8.5-10.1); Creatinine Clr Calc Pharmacy 114.2 ml/min; Est GFR (Non-African American) 99.2 ml/min; Magnesium 1.7 mg/dl (1.7-2.4); Potassium 3.6 mmol/L (3.5-5.1)
--- NOTE | 2022-01-15 08:08 | Orthopedic Progress Note ---
Date of Service January 15, 2022 Assessment & Plan (1) Cauda equina syndrome: Plan: At this time the patient's neurologic function steadily improving. He was ambulating last night. We will continue with physical therapy today and assess his progress hopefully discharge home Wednesday or Wednesday. Admission and Anticipated Discharge Date Admission Date: January 13, 2022 Subjective Patient complaining of back pain. He feels his leg symptoms are markedly improved. Still some numbness to the left anterior thigh. His bowel bladder functions markedly improved. Physical Exam Physical Exam: Patient is in bed. He is comfortable. Is good strength testing. Sensory is intact. Results & Data ([facility]) Vital Signs (Past 12 Hours) Vital Signs Temp Pulse Resp BP Pulse Ox O2 Del Method 01/15/22 07:43 36.6 C 59 L 16 137/75 97 Room Air 01/15/22 03:00 36.6 C 67 16 135/63 97 01/14/22 21:00 Room Air 01/14/22 23:10 36.7 C 65 16 133/67 96
[2022-01-15] MEDS: dexAMETHasone 6 MG in SYRINGE 0 ML IV SCH (08:46)
[2022-01-15] MEDS: INSULIN ASPART PER UNIT SC SCH ×4 (08:46→22:57)
[2022-01-15] MEDS ORDERED: PHARMACY GLYCEMIC MGMT CONSULT PRN (11:31)
[2022-01-15] MEDS: NovoLIN-N (NPH) PER UNIT CHARGE SQ SCH (13:30)
--- NOTE | 2022-01-15 15:10 | Hospitalist Progress Note ---
Date of Service January 15, 2022 Assessment & Plan (1) Low back pain: Plan: Low back pain/L4-5 herniated disc with central spinal canal stenosis/L3-4 degenerative disc disease with bilateral nerve root impingement- Dexamethasone 4 mg IV every 12 hours, first dose tonight Discontinue oral prednisone Acetaminophen 650 mg p.o. every 6 hours. Mild pain or fever Dilaudid 0.5 mg IV every 3 hours as needed for moderate pain Dilaudid 1 mg IV every 3 hours as needed for severe pain Zofran 4 mg IV every 6 hours as needed Orthopedic spine surgery aware--seen by Dr. Malone, s/p lumbar decompression and fusion on 01/14 PT/OT, activity, steroids, pain control per Dr. Malone (2) UTI (urinary tract infection): Plan: - Urine cx with growth of E. coli - In light of post op status with hardware, start Rocephin 2g IV daily (treat for minimum of 7 days) (3) HNP (herniated nucleus pulposus) with myelopathy, cervical: Plan: History of cervical spine surgery with mild persistent neck discomfort (4) Diabetes: Plan: Patient reports having elevated blood sugar in the past, that was initially treated with insulin, which ultimately was able to be controlled with metformin, and then by diet alone. Glucose 296 on admission, secondary to being on oral prednisone Check hemoglobin A1c Placed on diabetic diet with Accu-Cheks before meals and at bedtime and NovoLog coverage glycemic management consult to pharmacy placed and insulin adjustments ordered to cover while pt is on IV Decadron Plan PT/OT, urinary catheter to be removed today. Initiate abx as indicated above. Dc planning. D/w Dr. Angeles, further orders as warranted. Admission and Anticipated Discharge Date Admission Date: January 13, 2022 Subjective Patient seen on daily rounds this morning. He is resting in bed, states that his back pain was aggravated when trying to slide up in bed and was medicated for pain just prior to my arrival. He denies cp or dyspnea. Catheter remains in place. He is s/p lumbar decompression and fusion by Dr. Malone on 01/14. Review of Systems Review of Systems: All systems reviewed and are unremarkable except as noted in HPI and below. Denies fever, chills, fatigue, headache, nasal congestion, sore throat, cough, chest pain, shortness of breath, palpitations, orthopnea, PND, abdominal pain, n/v/d, constipation, dysuria, hematuria, frequency, joint pain or swelling, easy bruising or bleeding, skin lesions or rashes. Physical Exam Physical Exam: GENERAL: 51 yo Well-developed, well-nourished WM. NAD. LUNGS: Clear to auscultation bilaterally. No W/R/R. CARDIOVASCULAR: Regular rate and rhythm. ABDOMEN: Soft, non-tender and non-distended. BS normoactive x 4 quad. EXTREMITIES: No edema. Non-tender. Peripheral pulses +2/4. NEUROLOGIC: A&O x3. PSYCHIATRIC: Cooperative. Appropriate mood and affect. SKIN: Warm, dry, intact. No rashes or lesions. RAMIREZ drain visualized. Results & Data Results & Data ([facility]) Vital Signs (Past 12 Hours) Vital Signs Temp Pulse Resp BP Pulse Ox O2 Del Method 01/15/22 12:16 36.7 C 66 16 124/81 94 Room Air 01/15/22 07:43 36.6 C 59 L 16 137/75 97 Room Air Laboratory Results 01/15/22 07:10 01/15/22 07:10 PG Care Time/CCT Total # of Minutes Spent Total Time Spent with Patient: Total time spent is greater than 50% in coordination of care (as documented) at patient's floor/unit and/or counseling patient: Coding Level of Care Code 37695 Subseq Hosp Care Lvl 2 Diagnoses Low back pain M54.50 UTI (urinary tract infection) N39.0 HNP (herniated nucleus pulposus) with myelopathy, cervical M50.00 Diabetes E11.9
--- NOTE | 2022-01-15 15:37 | Pharmacy Report ---
Pharmacy Glycemic Short Note 2 - Date of Service January 15, 2022 - Glycemic Short BSG Results (Last 24 hours): 01/14/22 01/14/22 01/14/22 17:04 20:25 22:06 Glucose POC Glucose 246 H 225 H 228 H 01/15/22 01/15/22 01/15/22 07:10 08:18 11:59 Glucose 204 H POC Glucose 185 H 200 H OUTPATIENT ANTIDIABETIC REGIMEN: * None ASSESSMENT: * Patient had elevated blood sugar in the past that was initially treated with insulin, which was changed to metformin alone and then later discontinued and was controlled by diet alone. * Glucose was 296 on admission secondary to taking oral prednisone * Hemoglobin A1c is 7.4% * Blood sugars elevated due to ongoing dexamethasone; will initiate NPH at 0.2 units/kg to help cover steroid effects; will tighten novolog to a stress of 2/3 PLAN FOR INPATIENT GLYCEMIC CONTROL: * Basal insulin * NPH 20 units SQ Daily * Bolus insulin * NovoLog per scale ACHS or Q6hrs while NPO * Goal Range: Low 110 mg/dL - High 140 mg/dL * Correction Factor: 20 mg/dL/unit * Nutritional / Prandial insulin per carb ratio of 1 unit per 7 grams CHO consumed
[2022-01-15] MEDS ORDERED: cefTRIAXone SODIUM 2,000 MG in DEXTROSE 5% 50 ML IV SCH (16:00)
[2022-01-15] MEDS: diphenhydrAMINE Capsule 25 MG CAP PO PRN (20:12)
[2022-01-15] MEDS: DOCUSATE SODIUM/SENNA 50/8.6MG TAB PO SCH (22:56)
[2022-01-16] MEDS: HYDROmorphone INJ 1 MG/ML SYRINGE IV PRN ×2 (00:59→06:40)
[2022-01-16] MEDS: hydrOXYzine HCl 25 MG TAB PO PRN ×2 (02:58→11:55)
[2022-01-16] MEDS: oxyCODONE HCL IR 5 MG TAB (IMMEDIATE RELEASE) PO PRN ×3 (02:58→13:40)
[2022-01-16] MEDS: POLYETHYLENE (MIRALAX) 17 GM PACK PO SCH ×2 (06:38→11:57)
[2022-01-16 07:14] LABS: Hematocrit (blood only) 38.1 % (40.1-51.0); Hemoglobin 13.1 g/dl (14.0-18.0); Mean Corpuscular Hemoglobin 31.3 pg (25.0-34.0); Mean Corpuscular Hgb Conc 34.4 g/dL (32.0-36.0); Mean Corpuscular Volume 91.1 fL (80.0-100.0); Mean Platelet Volume 10.5 fL (9.4-12.4); Platelet Count 193 K/uL (130-400); RDW Standard Deviation 43.1 fL (36.4-46.3); Red Blood Count 4.18 M/uL (4.63-6.08); White Blood Count 14.26 K/ul (4.8-10.8)
[2022-01-16 07:34] LABS: Albumin Level 3.5 gm/dl (3.4-5.0); BUN Creatinine Ratio 21.1 (10-20); Creatinine Clr Calc Pharmacy 108.2 ml/min; Est GFR (African American) 107.7 ml/min; Magnesium 1.7 mg/dl (1.7-2.4); Phosphorus 3.1 mg/dl (2.5-4.9); Potassium 3.7 mmol/L (3.5-5.1)
[2022-01-16 07:44] LABS: Basophils # (auto) 0.04 K/uL (0-0.2); Basophils % (auto) 0.3 %; Eosinophils # (auto) 0.14 K/uL (0-0.50); Immature Granulocytes % (auto) 0.7 %; Lymphocytes # (auto) 4.01 K/uL (1.2-3.4); Lymphocytes % (auto) 28.1 %; Monocytes # (auto) 1.29 K/uL (0.24-0.82); Neutrophils # (auto) 8.68 K/uL (1.4-6.5); Neutrophils % (auto) 60.9 %
[2022-01-16] MEDS: INSULIN ASPART PER UNIT SC SCH ×2 (09:24→12:51)
[2022-01-16] MEDS: dexAMETHasone 6 MG in SYRINGE 0 ML IV SCH (09:24)
[2022-01-16] MEDS: NovoLIN-N (NPH) PER UNIT CHARGE SQ SCH (09:53)
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
--- NOTE | 2022-01-16 12:19 | Hospitalist Progress Note ---
Date of Service January 16, 2022 Assessment & Plan (1) Low back pain: Plan: Low back pain/L4-5 herniated disc with central spinal canal stenosis/L3-4 degenerative disc disease with bilateral nerve root impingement- Dexamethasone 4 mg IV every 12 hours, first dose tonight Discontinue oral prednisone Acetaminophen 650 mg p.o. every 6 hours. Mild pain or fever Dilaudid 0.5 mg IV every 3 hours as needed for moderate pain Dilaudid 1 mg IV every 3 hours as needed for severe pain Zofran 4 mg IV every 6 hours as needed Orthopedic spine surgery aware--seen by Dr. Malone, s/p lumbar decompression and fusion on 01/14 PT/OT, activity, steroids, pain control per Dr. Malone Pt with mild leukocytosis noted, suspect this is steroid induced Script for walker has been provided (2) UTI (urinary tract infection): Plan: - Urine cx with growth of E. coli - In light of post op status with hardware, started on Rocephin 2g IV daily - D/c home on course of Cefdinir 300mg BID x 5 days (3) HNP (herniated nucleus pulposus) with myelopathy, cervical: Plan: History of cervical spine surgery with mild persistent neck discomfort (4) Diabetes: Plan: Patient reports having elevated blood sugar in the past, that was initially treated with insulin, which ultimately was able to be controlled with metformin, and then by diet alone. Glucose 296 on admission, secondary to being on oral prednisone Check hemoglobin A1c Placed on diabetic diet with Accu-Cheks before meals and at bedtime and NovoLog coverage glycemic management consult to pharmacy placed and insulin adjustments ordered to cover while pt is on IV Decadron Plan Patient has been discharged from orthopedic service. He is medically stable for such. Will order relatively short course of oral antibiotics to cover his UTI. Plan d/w Dr. Angeles. Admission and Anticipated Discharge Date Admission Date: January 13, 2022 Subjective Patient seen on daily rounds this morning. He is resting in bed, states that his back is sore and had just received Dilaudid prior to my visit. He denies cp or dyspnea. He is s/p lumbar decompression and fusion by Dr. Malone on 01/14. Urinary catheter removed on 01/15, he is voiding w/o issue. Review of Systems Review of Systems: All systems reviewed and are unremarkable except as noted in HPI and below. Denies fever, chills, fatigue, headache, nasal congestion, sore throat, cough, chest pain, shortness of breath, palpitations, orthopnea, PND, abdominal pain, n/v/d, constipation, dysuria, hematuria, frequency, joint pain or swelling, easy bruising or bleeding, skin lesions or rashes. Physical Exam Physical Exam: GENERAL: 51 yo Well-developed, well-nourished WM. NAD. LUNGS: Clear to auscultation bilaterally. No W/R/R. CARDIOVASCULAR: Regular rate and rhythm. ABDOMEN: Soft, non-tender and non-distended. BS normoactive x 4 quad. EXTREMITIES: No edema. Non-tender. Peripheral pulses +2/4. NEUROLOGIC: A&O x3. PSYCHIATRIC: Cooperative. Appropriate mood and affect. SKIN: Warm, dry, intact. No rashes or lesions. RAMIREZ drain visualized. Results & Data Results & Data ([facility]) Vital Signs (Past 12 Hours) Vital Signs Temp Pulse Resp BP Pulse Ox O2 Del Method 01/16/22 07:13 36.8 C 65 14 116/67 95 Room Air Laboratory Results 01/16/22 06:41 01/16/22 06:41 PG Care Time/CCT Total # of Minutes Spent Total Time Spent with Patient: Total time spent is greater than 50% in coordination of care (as documented) at patient's floor/unit and/or counseling patient: Coding Level of Care Code 51682 Subseq Hosp Care Lvl 2 Diagnoses Low back pain M54.50 UTI (urinary tract infection) N39.0 HNP (herniated nucleus pulposus) with myelopathy, cervical M50.00 Diabetes E11.9
[2022-01-16] MEDS ORDERED: cefTRIAXone SODIUM 2,000 MG in DEXTROSE 5% 50 ML IV SCH (13:30)
[2022-01-16] MEDS: HYDROmorphone INJ 0.5 MG/0.5 ML SYR IV PRN (14:56)
== END 2022-01-16 15:23 | disposition home or self-care (01) | DRG 453 ==
LOC: ED 16:23 → 3N 21:12 → SUATTDRO 21:12 → 3N 22:38

== ENCOUNTER 2022-06-11 22:10 | Observation (INO) ==
[2022-06-11] MEDS ORDERED: MoRPHine SULFATE 4 MG/ML 1 ML CARP\\VIAL IV STA (22:44)
[2022-06-11] MEDS ORDERED: ONDANSETRON INJ 2 MG/ML 2 ML VIAL IV STA (22:44)
[2022-06-11] MEDS ORDERED: dexAMETHasone**PF** 10 MG/ML VIAL IV ONE (22:44)
--- NOTE | 2022-06-11 22:47 | Emergency Department Note ---
History of Present Illness General Chief complaint: Back Injury/Pain Stated complaint: BACK PAIN Time Seen by Provider: 06/11/22 22:32 History of Present Illness Maximum Pain Intensity: 8 This 51-year-old gentleman presents to ER complaining of severe low back pain rating down his left leg after getting up from a car. He states he feels like a burning sensation. He has had prior back surgery with Dr. Malone. He has a history of chronic cauda equina syndrome. Patient denies loss of bowel bladder control, saddle anesthesia, fever, chills, IV drug abuse. Home Medications Medication Instructions Recorded Confirmed Type metformin 500 mg tablet 500 mg PO BID 04/18/22 06/12/22 History ondansetron HCl 4 mg tablet 4 mg PO TID PRN NAUSEA/VOMITING 04/18/22 06/12/22 History oxycodone-acetaminophen 5 mg-325 1 tab PO Q6H PRN pain #20 tabs 04/19/22 06/12/22 Rx mg tablet (Percocet) sofosbuvir 400 mg-velpatasvir 100 1 tab PO DAILY 06/12/22 06/12/22 History mg tablet Allergies Allergy/AdvReac Type Severity Reaction Status Date / Time Penicillins Allergy Intermediate HIVES Verified 06/12/22 01:06 morphine AdvReac Intermediate NAUSEA/VOMI Verified 06/12/22 01:06 TING Past Med/Surg History Medical History Cervical radiculopathy Diabetes Shoulder pain Surgical History H/O wrist surgery Family History Mother Cancer Social History Smoking Status: Never smoker Hx Alcohol Use: No Hx Substance Use: No Preferred Language: Uzbek Communication Ability: Effective Hearing Ability: Normal Retail Route Supervisor Required: No Beliefs That Will Affect Care: None marital status: Life Partner Current Living Situation: Significant Other Feels Safe at Home: Yes Assistive Devices: Cane Review of Systems A total of 10 systems reviewed and were otherwise negative Physical Exam Vital Signs Vital Signs - 24 hr 06/11/22 22:26 06/11/22 23:50 06/12/22 01:27 Temperature 36.9 C Temperature Source Temporal Artery Scan Pulse Rate 65 Pulse Rate [Right Finger] 74 74 Pulse Rhythm [Right Finger] Regular Regular Pulse Strength [Right Finger] Normal Normal Respiratory Rate 18 18 18 Respiratory Effort / Characteristics Non-Labored Spontaneous Non-Labored Spontaneous Non-Labored Spontaneous Respiratory Depth Normal Normal Normal Respiratory Pattern Regular Blood Pressure 148/75 H Blood Pressure [Left Arm] 122/74 112/67 Blood Pressure Mean 99 Blood Pressure Mean [Left Arm] 90 82 Blood Pressure Position [Left Arm] Lying Lying Pulse Oximetry 97 98 97 Oxygen Delivery Method Room Air Room Air Room Air Sepsis Recent Fever Within 48 Hours No Sepsis New/Unexplained Change in Mental Status No Sepsis Action Taken by Nursing No Action Required VITALS: Vitals are noted on the nurse's note and reviewed by myself. Vital signs stable. GENERAL: pleasant male who appears in pain, in no acute distress, nondiaphoretic, well-developed well-nourished. SKIN: The skin was without rashes, erythema, edema, or bruising. There is no tenting of the skin. Capillary reflex less than 2 seconds. HEAD: Normocephalic atraumatic. EARS: External auditory canals clear, EYES: Pupils equal round and reactive to light and accommodation. Conjunctivae without injection, sclerae without icterus. Extraocular movements intact. NOSE: Patent, turbinates without inflammation or discharge. MOUTH: Mucous membranes moist. Pharynx without erythema or exudate. Uvula midline. Airway patent. Tongue does not deviate. NECK: Supple without nuchal rigidity. No lymphadenopathy. No thyromegaly. Cervical spine is nontender. No JVD. HEART: Regular rate and rhythm LUNGS: Clear to auscultation bilaterally without wheezes, rales or rhonchi. No retractions or accessory muscle use. ABDOMEN: Positive bowel sounds x 4. Normal tympanic percussion. Soft, nontender, without masses or organomegaly. Foote sign negative. No guarding or rebound tenderness. No CVA tenderness MUSCULOSKELETAL: No muscle atrophy, erythema, or edema noted. No thoracic tenderness. Lumbar tenderness. Positive straight leg raise on the left. Negative on the right. Patient can plantarflex and dorsiflex. NEURO: Patient was alert and oriented to person place and time. Normal sensation to light and sharp touch. No focal neurological deficits. Course Administered Medications Hydromorphone HCl (Hydromorphone Inj 0.5 Mg/0.5 Ml Syr) 0.5 mg IV Q15M PRN PRN Reason: Pain Stop: 06/26/22 00:39 Last Admin: 06/12/22 01:26 Dose: 0.5 mg Documented By: MARKETING ANALYTICS SPECIALIST Admin: 06/12/22 00:52 Dose: 0.5 mg Documented By: MARKETING ANALYTICS SPECIALIST Discontinued Medications Dexamethasone Sodium Phosphate (DexamethasonePf 10 Mg/Ml Vial) 10 mg IV NOW ONE Stop: 06/11/22 22:45 Last Admin: 06/11/22 23:17 Dose: 10 mg Documented By: MARKETING ANALYTICS SPECIALIST Fentanyl Citrate (Fentanyl Citrate Pf 100 Mcg/2 Ml Vial) 50 mcg IV NOW STA Stop: 06/11/22 23:10 Last Admin: 06/11/22 23:17 Dose: 50 mcg Documented By: MARKETING ANALYTICS SPECIALIST Fentanyl Citrate (Fentanyl Citrate Pf 100 Mcg/2 Ml Vial) 50 mcg IV Q15M PRN PRN Reason: Pain Stop: 06/25/22 23:08 Last Admin: 06/11/22 23:44 Dose: 50 mcg Documented By: MARKETING ANALYTICS SPECIALIST Lorazepam (Lorazepam 2 Mg/1 Ml Vial) 1 mg IV NOW STA Stop: 06/11/22 23:26 Last Admin: 06/11/22 23:44 Dose: 1 mg Documented By: MARKETING ANALYTICS SPECIALIST Morphine Sulfate (Morphine Sulfate 4 Mg/Ml 1 Ml Carp\Vial) 4 mg IV NOW STA Stop: 06/11/22 22:45 Last Admin: 06/11/22 23:08 Dose: Not Given Documented By: MARKETING ANALYTICS SPECIALIST Ondansetron HCl (Ondansetron Inj 2 Mg/Ml 2 Ml Vial) 4 mg IV NOW STA Stop: 06/11/22 22:45 Last Admin: 06/11/22 23:14 Dose: 4 mg Documented By: AYANA Medical Decision Making Medical Records Attestation: I reviewed the patient's medical records. Home Medications Current Medication List: was personally reviewed by me Laboratory Data Attestation: I reviewed the patient's lab results. 06/11/22 23:04 06/11/22 23:04 Lab Results 06/11/22 06/11/22 06/12/22 Range/Units 23:04 23:04 01:20 WBC 7.05 (4.8-10.8) K/ul RBC 4.21 L (4.70-6.10) M/uL Hgb 12.8 L (14.0-18.0) g/dl Hct 37.7 L (42.0-52.0) % MCV 89.5 (80.0-100.0) fL MCH 30.4 (25.0-34.0) pg MCHC 34.0 (32.0-36.0) g/dL RDW Std Deviation 43.8 (36.4-46.3) fL RDW Coeff of Tulio 13.2 (11.5-14.5) % Plt Count 173 (130-400) K/uL MPV 10.1 (9.4-12.4) fL Immature Gran % (Auto) 0.1 % Neut % (Auto) 49.3 % Lymph % (Auto) 40.4 % [place] % (Auto) 7.2 % Eos % (Auto) 2.6 % Baso % (Auto) 0.4 % Neut # (Auto) 3.47 (1.40-6.50) K/uL Lymph # (Auto) 2.85 (1.2-3.4) K/uL [place] # (Auto) 0.51 (0.11-0.59) K/uL Eos # (Auto) 0.18 (0-0.50) K/uL Baso # (Auto) 0.03 (0-0.2) K/uL Immature Gran # (Auto) 0.01 (0.01-0.20) K/uL Sodium 136 (136-145) mmol/L Potassium 4.0 (3.5-5.1) mmol/L Chloride 104 (98-107) mmol/L Carbon Dioxide 28 (21-32) mmol/L Anion Gap 4 (3-11) BUN 16 (6-23) mg/dl Creatinine 1.12 (0.6-1.4) mg/dl Est Cr Clr Drug Dosing 86.3 ml/min Est GFR ( Amer) 88.3 ml/min Est GFR (Non-Af Amer) 76.2 ml/min BUN/Creatinine Ratio 14.3 (10-20) Glucose 174 H (70-99(Fasting)) mg/dl Calcium 8.9 (8.6-10.3) mg/dl Total Bilirubin 0.6 (0.2-1.0) mg/dl AST 51 H (13-39) U/L ALT 81 H (7-52) U/L Alkaline Phosphatase 57 (34-104) U/L Total Protein 7.3 (6.0-8.3) gm/dl Albumin 3.9 (3.4-5.0) gm/dl Globulin 3.4 (2.5-4.0) gm/dl Albumin/Globulin Ratio 1.1 (0.9-2) SARS-CoV-2, RNA, NAAT NEGATIVE (NEGATIVE) Imaging Data Attestation: I personally reviewed and interpreted this imaging study as follows: Radiologist's Impression: Lumbar Spine MRI 06/11/22 22:44 Exam(s): MRI L SPINE Without Contrast EXAM: MR Lumbar Spine Without Intravenous Contrast CLINICAL HISTORY: Reason for exam: severe pain down left leg/weak. TECHNIQUE: Magnetic resonance images of the lumbar spine without intravenous contrast in multiple planes. There is metal artifact as well as motion artifact. COMPARISON: MRI lumbar spine 01/13/22. FINDINGS: Vertebrae: Marrow edema L3, L4, L5, nonspecific, has developed in the interval suggesting hardware loosening, failure or infection, most notable at L5. Metal artifact limits evaluation. Conus: No abnormal signal. Soft tissues: No paraspinous fluid collection. No epidural fluid collection. DISCS/SPINAL CANAL/NEURAL FORAMINA: L1-L2: Unremarkable. L2-L3: Unremarkable. L3-L4: Laminectomy and fusion with disc replacement. L4-L5: Disc replacement, laminectomy and fusion. L5-S1: Unremarkable. OTHER: Moderate facet hypertrophy throughout. No definite isolated disc herniation or central spinal stenosis. IMPRESSION: 1. There is marrow edema at L3, L4, and L5 associated with the hardware, nonspecific, concerning for complicating feature with the hardware such as failure, infection or loosening. 2. No disc herniation, epidural fluid collection or spinal stenosis. Electronically signed by: Sherry Alcaraz M.D. 06/12/22 03:58 AM [facility] Narrative Prior records/ancillary studies reviewed. Triage Nursing notes reviewed. Additional history obtained from family. The patient's history was concerning for back pain. Differential diagnosis: Etiologies such as musculoskeletal, disc herniation, fracture, aortic disease, metastatic disease, cord compression, discitis, infection, renal colic, gastrointestinal, acute exacerbation of chronic back pain, sciatica, cauda equin a, as well as others were entertained. Physical findings: As above. No focal neurologic findings noted. ER treatment provided: Decadron, fentanyl and Zofran were ordered Dilaudid was ordered as patient states the fentanyl was not helped On reassessment the patient felt better. Diagnostics interpreted by me: The labs Independently Interpreted by myself revealed no worrisome leuko cytosis, mildly elevated LFTs. Hyperglycemia without DKA Imaging studies: as above Consultation: A consultation was placed with hospitalist. The case was discussed and diagnostics were reviewed. They will evaluate the patient for possible admission.. This appears to be consistent with intractable low back pain w/ abnormalities seen on MRI. Patient was given multiple rounds of pain meds. He is still in severe amount of pain. Imaging was reviewed. Labs were reviewed. Both were independently turbid by myself. Medicine is consulted the patient will be Evaluated by the admitting team. Case was discussed. By the evaluation outlined above emergent etiologies such as aortic disease, metastatic disease, renal colic, gastrointestinal, cord compression, cauda equina, as well as others were deemed relatively unlikely. The pt informed about the findings as listed above. All questions were answered and pleased with the treatment. The chart was completed utilizing [employer] Speech voice recognition software. Grammatical errors, random word insertions, pronoun errors, and incomplete sentences are an occassional consequence of this system due to software limitations, ambient noise, and hardware issues. Any formal questions or concerns about the content, text, or information contained within the body of this dictation should be directly addressed to the physician electrical assistant for clarification. Impression & Plan Lumbar radiculopathy, Intractable low back pain Discharge Plan Visit Data Chief Complaint: Back Injury/Pain Stated Complaint: BACK PAIN ED Provider: Joelle Phillips ED Midlevel Provider: Chen Jay Discharge Problem: Lumbar radiculopathy, Intractable low back pain Patient Disposition: Being Evaluated by Hospitalist Condition: Good Forms Stand Alone Forms: My [facility] [employer] Prescriptions Prescriptions: No Action metformin 500 mg tablet 500 mg PO BID ondansetron HCl 4 mg tablet 4 mg PO TID PRN (Reason: NAUSEA/VOMITING) oxycodone-acetaminophen [Percocet] 5-325 mg tablet 1 tab PO Q6H PRN (Reason: pain) Qty: 20 0RF sofosbuvir-velpatasvir 400-100 mg tablet 1 tab PO DAILY Referrals Referrals: Saul Garcia PA-C [Outside Practitioners] -
[2022-06-11] MEDS ORDERED: fentaNYL citrate PF 100 MCG/2 ML VIAL IV PRN (23:09)
[2022-06-11] MEDS ORDERED: fentaNYL citrate PF 100 MCG/2 ML VIAL IV STA (23:09)
[2022-06-11] MEDS ORDERED: LORazepam 2 MG/1 ML VIAL IV STA (23:25)
[2022-06-11 23:49] LABS: Basophils # (auto) 0.03 K/uL (0-0.2); Basophils % (auto) 0.4 %; Eosinophils # (auto) 0.18 K/uL (0-0.50); Eosinophils % (auto) 2.6 %; Hematocrit (blood only) 37.7 % (42.0-52.0); Hemoglobin 12.8 g/dl (14.0-18.0); Immature Granulocytes # (auto) 0.01 K/uL (0.01-0.20); Immature Granulocytes % (auto) 0.1 %; Lymphocytes # (auto) 2.85 K/uL (1.2-3.4); Lymphocytes % (auto) 40.4 %; Mean Corpuscular Hemoglobin 30.4 pg (25.0-34.0); Mean Corpuscular Volume 89.5 fL (80.0-100.0); Mean Platelet Volume 10.1 fL (9.4-12.4); Monocytes # (auto) 0.51 K/uL (0.11-0.59); Monocytes % (auto) 7.2 %; Neutrophils # (auto) 3.47 K/uL (1.40-6.50); Neutrophils % (auto) 49.3 %; Platelet Count 173 K/uL (130-400); RDW Coefficient of Variation 13.2 % (11.5-14.5); RDW Standard Deviation 43.8 fL (36.4-46.3); Red Blood Count 4.21 M/uL (4.70-6.10); White Blood Count 7.05 K/ul (4.8-10.8)
[2022-06-12 00:01] LABS: Albumin Globulin Ratio 1.1 (0.9-2); Albumin Level 3.9 gm/dl (3.4-5.0); BUN Creatinine Ratio 14.3 (10-20); Bilirubin,Total 0.6 mg/dl (0.2-1.0); Calcium 8.9 mg/dl (8.6-10.3); Creatinine Clr Calc Pharmacy 86.3 ml/min; Est GFR (African American) 88.3 ml/min; Est GFR (Non-African American) 76.2 ml/min; Globulin 3.4 gm/dl (2.5-4.0); Total Protein 7.3 gm/dl (6.0-8.3)
[2022-06-12] MEDS: HYDROmorphone INJ 0.5 MG/0.5 ML SYR IV PRN ×3 (00:52→04:12)
--- NOTE | 2022-06-12 04:00 | Magnetic Resonance Report ---
Exam(s): MRI L SPINE Without Contrast EXAM: MR Lumbar Spine Without Intravenous Contrast CLINICAL HISTORY: Reason for exam: severe pain down left leg/weak. TECHNIQUE: Magnetic resonance images of the lumbar spine without intravenous contrast in multiple planes. There is metal artifact as well as motion artifact. COMPARISON: MRI lumbar spine 01/13/22. FINDINGS: Vertebrae: Marrow edema L3, L4, L5, nonspecific, has developed in the interval suggesting hardware loosening, failure or infection, most notable at L5. Metal artifact limits evaluation. Conus: No abnormal signal. Soft tissues: No paraspinous fluid collection. No epidural fluid collection. DISCS/SPINAL CANAL/NEURAL FORAMINA: L1-L2: Unremarkable. L2-L3: Unremarkable. L3-L4: Laminectomy and fusion with disc replacement. L4-L5: Disc replacement, laminectomy and fusion. L5-S1: Unremarkable. OTHER: Moderate facet hypertrophy throughout. No definite isolated disc herniation or central spinal stenosis. IMPRESSION: 1. There is marrow edema at L3, L4, and L5 associated with the hardware, nonspecific, concerning for complicating feature with the hardware such as failure, infection or loosening. 2. No disc herniation, epidural fluid collection or spinal stenosis. Electronically signed by: Sherry Alcaraz M.D. 06/12/22 03:58 AM
--- NOTE | 2022-06-12 04:04 | History & Physical Report ---
Date of Service June 12, 2022 Assessment & Plan (1) Intractable low back pain: Plan: 51 yo male PMHx cauda equina syndrome and lumbar disc herniation with severe spinal stenosis and radiculopathy L3-L4 L4-5 s/p lumbar decompression and spinal fusion (01/14/22- Dr. Malone) presents with low back pain. #Intractable low back pain #h/o cauda equina #h/o lumbar disc herniation with severe spinal stenosis and radiculopathy L3-L4 L4-5 -pt presents with non contact low back injury getting out of car. Radiating pain, numbness/tingling, weakness down L leg. He is s/p lumbar decompression and spinal fusion (01/14/22) with Dr. Malone. Was continually improving with PT until this injury. Last seen by Dr. Malone last week. -MRI lumbar spine: marrow edema at L3, L4, and L5 associated with the hardware -no leukocytosis. Vitals normal. Afebrile. Low concern for infection. ESR, CRP pending. -Received 10mg IV dexamethasone in ED, along with Ativan, morphine, fentanyl for pain relief. -tylenol, dilaudid prn for pain -zofran for nausea -Spine ortho consulted -will keep NPO on maintenance IVF in case of surgical intervention #DM2 -hold home meds -placed on SSI #Hepatitis C, chronic -cont. daily sofosbuvir-velpatasvir DVT ppx: SCDs FEN/GI: NPO, IVF @ 100 ml/hr Code Status: Full Dispo: Med surg, obs (2) Cauda equina syndrome: (3) Lumbar radiculopathy: (4) Diabetes: (5) Chronic hepatitis C: History of Present Illness Chief Complaint: back pain Primary Care Provider: YOLIE Edwards 51 yo male PMHx cauda equina syndrome and lumbar disc herniation with severe spinal stenosis and radiculopathy L3-L4 L4-5 s/p lumbar decompression and spinal fusion (01/14/22- Dr. Malone) presents with low back pain. Patient was getting out of his car earlier and with a twisting movement felt a sharp pain in his low back with radiation of pain down his left left. Associated numbness/tingling predominantly at bottom of left foot and L leg weakness. Pain has subsided since injury. Denies fever, fatigue, chest pain, sob, abd pain, N/V/D, constipation, dysuria. Denies symptoms of cauda equina including urinary/fecal incontinence and saddle anesthesia. Of note, since his back surgery, he has had some pain and numbness at site of hardware which seemed to be improving with the help of PT. He last saw Dr. Malone last week without complications. Has been tolerating surgical pain at home with tylenol/NSAIDs. Allergies Allergy/AdvReac Type Severity Reaction Status Date / Time Penicillins Allergy Intermediate HIVES Verified 06/12/22 01:06 morphine AdvReac Intermediate NAUSEA/VOMI Verified 06/12/22 01:06 TING Home Medications Medication Instructions Recorded Confirmed Type metformin 500 mg tablet 500 mg PO BID 04/18/22 06/12/22 History ondansetron HCl 4 mg tablet 4 mg PO TID PRN NAUSEA/VOMITING 04/18/22 06/12/22 History oxycodone-acetaminophen 5 mg-325 1 tab PO Q6H PRN pain #20 tabs 04/19/22 06/12/22 Rx mg tablet (Percocet) sofosbuvir 400 mg-velpatasvir 100 1 tab PO DAILY 06/12/22 06/12/22 History mg tablet Past Med/Surg History Medical History Cervical radiculopathy Diabetes Shoulder pain Surgical History H/O wrist surgery Family History Mother Cancer Social History Smoking Status: Never smoker Hx Alcohol Use: No Hx Substance Use: No Preferred Language: Malaysian Communication Ability: Effective Hearing Ability: Normal 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 AOx3. Vitals as above. HEENT: No scleral injection or discharge. Moist mucous membranes. Neck: Supple without lymphadenopathy or thyromegaly. Trachea midline. Lungs: Clear to auscultation bilaterally with good effort. Cardiac: Regular rate and rhythm. No murmurs. No extremity edema. 2+ distal peripheral pulses. Abdomen: Bowel sounds present. Soft, nontender, and nondistended.No guarding. No hepatosplenomegaly. MSK: No cyanosis or clubbing. Extremities motor strength RLE 5/5. LLE 4/5. Skin: No rashes, warm, dry. Incision site lumbar spine intact with no erythema/warmth/edema, mildly tender to palpation. Neurologic: no focal deficits. Decreased sensation L plantar foot otherwise normal sensation bilaterally. Pain in mid lumbar back region with L straight leg raise without radiating numbness/tingling down leg. Results & Data Results & Data Vital Signs (Past 12 Hours) Vital Signs Temp Pulse Pulse Resp BP BP Pulse Ox 06/12/22 01:27 74 18 112/67 97 06/11/22 23:50 74 18 122/74 98 06/11/22 22:26 36.9 C 65 18 148/75 H 97 O2 Del Method 06/12/22 01:27 Room Air 06/11/22 23:50 Room Air 06/11/22 22:26 Room Air Laboratory Results Laboratory Results WBC 7.05 K/ul (4.8-10.8) 06/11/22 23:04 RBC 4.21 M/uL (4.70-6.10) L 06/11/22 23:04 Hgb 12.8 g/dl (14.0-18.0) L 06/11/22 23:04 Hct 37.7 % (42.0-52.0) L 06/11/22 23:04 MCV 89.5 fL (80.0-100.0) 06/11/22 23:04 MCH 30.4 pg (25.0-34.0) 06/11/22 23:04 MCHC 34.0 g/dL (32.0-36.0) 06/11/22 23:04 RDW Std Deviation 43.8 fL (36.4-46.3) 06/11/22 23:04 RDW Coeff of Tulio 13.2 % (11.5-14.5) 06/11/22 23:04 Plt Count 173 K/uL (130-400) 06/11/22 23:04 MPV 10.1 fL (9.4-12.4) 06/11/22 23:04 Immature Gran % (Auto) 0.1 % 06/11/22 23:04 Neut % (Auto) 49.3 % 06/11/22 23:04 Lymph % (Auto) 40.4 % 06/11/22 23:04 Wirt % (Auto) 7.2 % 06/11/22 23:04 Eos % (Auto) 2.6 % 06/11/22 23:04 Baso % (Auto) 0.4 % 06/11/22 23:04 Neut # (Auto) 3.47 K/uL (1.40-6.50) 06/11/22 23:04 Lymph # (Auto) 2.85 K/uL (1.2-3.4) 06/11/22 23:04 Wirt # (Auto) 0.51 K/uL (0.11-0.59) 06/11/22 23:04 Eos # (Auto) 0.18 K/uL (0-0.50) 06/11/22 23:04 Baso # (Auto) 0.03 K/uL (0-0.2) 06/11/22 23:04 Immature Gran # (Auto) 0.01 K/uL (0.01-0.20) 06/11/22 23:04 Sodium 136 mmol/L (136-145) 06/11/22 23:04 Potassium 4.0 mmol/L (3.5-5.1) 06/11/22 23:04 Chloride 104 mmol/L (98-107) 06/11/22 23:04 Carbon Dioxide 28 mmol/L (21-32) 06/11/22 23:04 Anion Gap 4 (3-11) 06/11/22 23:04 BUN 16 mg/dl (6-23) 06/11/22 23:04 Creatinine 1.12 mg/dl (0.6-1.4) 06/11/22 23:04 Est Cr Clr Drug Dosing 86.3 ml/min 06/11/22 23:04 Est GFR ( Amer) 88.3 ml/min 06/11/22 23:04 Est GFR (Non-Af Amer) 76.2 ml/min 06/11/22 23:04 BUN/Creatinine Ratio 14.3 (10-20) 06/11/22 23:04 Glucose 174 mg/dl (70-99(Fasting)) H 06/11/22 23:04 Calcium 8.9 mg/dl (8.6-10.3) 06/11/22 23:04 Total Bilirubin 0.6 mg/dl (0.2-1.0) 06/11/22 23:04 AST 51 U/L (13-39) H 06/11/22 23:04 ALT 81 U/L (7-52) H 06/11/22 23:04 Alkaline Phosphatase 57 U/L (34-104) 06/11/22 23:04 Total Protein 7.3 gm/dl (6.0-8.3) 06/11/22 23:04 Albumin 3.9 gm/dl (3.4-5.0) 06/11/22 23:04 Globulin 3.4 gm/dl (2.5-4.0) 06/11/22 23:04 Albumin/Globulin Ratio 1.1 (0.9-2) 06/11/22 23:04 SARS-CoV-2, RNA, NAAT NEGATIVE (NEGATIVE) 06/12/22 01:20 Impressions Lumbar Spine MRI 06/11/22 22:44 Exam(s): MRI L SPINE Without Contrast EXAM: MR Lumbar Spine Without Intravenous Contrast CLINICAL HISTORY: Reason for exam: severe pain down left leg/weak. TECHNIQUE: Magnetic resonance images of the lumbar spine without intravenous contrast in multiple planes. There is metal artifact as well as motion artifact. COMPARISON: MRI lumbar spine 01/13/22. FINDINGS: Vertebrae: Marrow edema L3, L4, L5, nonspecific, has developed in the interval suggesting hardware loosening, failure or infection, most notable at L5. Metal artifact limits evaluation. Conus: No abnormal signal. Soft tissues: No paraspinous fluid collection. No epidural fluid collection. DISCS/SPINAL CANAL/NEURAL FORAMINA: L1-L2: Unremarkable. L2-L3: Unremarkable. L3-L4: Laminectomy and fusion with disc replacement. L4-L5: Disc replacement, laminectomy and fusion. L5-S1: Unremarkable. OTHER: Moderate facet hypertrophy throughout. No definite isolated disc herniation or central spinal stenosis. IMPRESSION: 1. There is marrow edema at L3, L4, and L5 associated with the hardware, nonspecific, concerning for complicating feature with the hardware such as failure, infection or loosening. 2. No disc herniation, epidural fluid collection or spinal stenosis. Electronically signed by: Sherry Alcaraz M.D. 06/12/22 03:58 AM Supervising Physician Co-Signing Physician Notes I personally saw and examined the patient. I verified all treviño points and agree with PGY-2 Gelacio [place] with the following exceptions and/or additions: Subjective: 51-year-old male past medical history significant for type 2 diabetes, lumbar DDD, history of cauda equina s/p lumbar decompression surgery in January 2022 who presented to the ER for severe low back pain in the area of his previous surgery that radiates down into the left leg after feeling a popping sensation in his low back when he was getting out of his vehicle. He denies decree sensation, bowel or bladder incontinence, saddle anesthesia, fever, chills. Symptoms improved with IV Dilaudid. Physical exam: Vitals reviewed Gen: Alert and oriented, NAD HEENT: anicteric sclerae, EOMI CV: RRR no mgr nl S1S2 Pulm: CTAB no wcr Abd: +BS soft NT ND no masses Ext: no edema, 2+ DP pulses Skin: no rashes, warm/dry Neuro: No focal neurologic deficits, able to lift both legs off of the bed, wiggle his toes, sensation symmetric and intact in bilateral lower extremities Labs, Rads, and ECG reviewed: evidence of hardware disruption in MR lumbar spine, question of hardware failure vs. loosening vs. infection Assessment and Plan: Low back pain: severe, in the setting of L spine hardware dysfunction, Ortho Spine consulted for eval for possible need for surgical intervention. No evidence of spinal cord compromise at this time. More suspicious of hardware loosening/failure than infection given popping with immediate pain, no elevated WBC count. Received dexamethasone 10mg IV x1 in ER. NPO for possible intervention. HepC: chronic, continue home sofusbuvir-velpatasvir DM2: History of, A1c 7.4 in January 2022. Defer oral home agents in favor of SSI while NPO, add basal when cleared for DM2 diet Resident Activity Tracking Resident Involvement: Resident Care Provided Care Provided: Adult [facility]
[2022-06-12 04:34] LABS: C Reactive Protein 0.59 mg/dl (0-0.5)
--- NOTE | 2022-06-12 05:39 | Billing Data ---
Date of Service June 12, 2022 Coding Level of Care Code 70294 INT INP/OBS CARE
[2022-06-12] MEDS ORDERED: ACETAMINOPHEN 1,000 MG/100 ML VIAL IV PRN (06:07)
[2022-06-12] MEDS ORDERED: CARBOHYDRATES FOR HYPOGLYCEMIA PO PRN (06:07)
[2022-06-12] MEDS ORDERED: SODIUM CHLORIDE 0.9% 1000ML 1,000 ML IV SCH (06:07)
[2022-06-12] MEDS ORDERED: ONDANSETRON INJ 2 MG/ML 2 ML VIAL IV PRN (06:07)
[2022-06-12] MEDS ORDERED: DEXTROSE 50% 50 ML SYRINGE IV PRN (06:07)
[2022-06-12] MEDS ORDERED: GLUCOSE 10 TAB/TUBE PO PRN (06:07)
[2022-06-12] MEDS ORDERED: GLUCAGON FOR INJ 1 MG VIAL SQ PRN (06:07)
[2022-06-12] MEDS ORDERED: GLUCOSE 40% GEL 15 GM TUBE PO PRN (06:07)
[2022-06-12] MEDS ORDERED: INSULIN ASPART PER UNIT CHARGE SC SCH ×2 (06:30→11:30)
[2022-06-12] MEDS: HYDROmorphone INJ 1 MG/ML SYRINGE IV PRN ×2 (06:34→11:14)
--- NOTE | 2022-06-12 08:40 | Hospitalist Progress Note ---
Date of Service June 12, 2022 Assessment & Plan (1) Intractable low back pain: Plan: 51 yo male PMHx cauda equina syndrome and lumbar disc herniation with severe spinal stenosis and radiculopathy L3-L4 L4-5 s/p lumbar decompression and spinal fusion (01/14/22- Dr. Malone) presents with low back pain. #Intractable low back pain #h/o cauda equina #h/o lumbar disc herniation with severe spinal stenosis and radiculopathy L3-L4 L4-5 -pt presents with non contact low back injury getting out of car. Radiating pain, numbness/tingling, weakness down L leg. He is s/p lumbar decompression and spinal fusion (01/14/22) with Dr. Malone. Was continually improving with PT until this injury. Last seen by Dr. Malone last week. -MRI lumbar spine: marrow edema at L3, L4, and L5 associated with the hardware -no leukocytosis. Vitals normal. Afebrile. Low concern for infection. ESR, CRP pending. -Received 10mg IV dexamethasone in ED, along with Ativan, morphine, fentanyl for pain relief. -tylenol, dilaudid prn for pain -zofran for nausea -Spine ortho consulted -will keep NPO on maintenance IVF in case of surgical intervention #DM2 -hold home meds -placed on SSI #Hepatitis C, chronic -cont. daily sofosbuvir-velpatasvir DVT ppx: SCDs FEN/GI: NPO, IVF @ 100 ml/hr Code Status: Full Dispo: Med surg, obs (2) Cauda equina syndrome: (3) Lumbar radiculopathy: (4) Diabetes: (5) Chronic hepatitis C: Admission and Anticipated Discharge Date Admission Date: June 12, 2022 Subjective BRIDGE NOTE: ADMIT AFTER MIDNIGHT Seen this morning, laying in bed, felt better in ER, pain acting up again this morning. Messaged Dr Malone, patient stated he was just in --> then , received call for discussion as patient reporting imaging but possible dc today. Will give dose of decadron, continue pain control, order diet. Dr Malone to review xrays later today and get back to me about possible dc on steroid dose pack/oral pain control Not taking excessive tylenol for pain control, but did just start treatment for Hepatitis C w/ GI at [facility] 2 days ago. Results & Data Results & Data Vital Signs (Past 12 Hours) Vital Signs Temp Pulse Pulse Resp BP BP Pulse Ox 06/12/22 07:26 36.4 C L 61 17 107/68 98 06/12/22 06:12 36.4 C L 65 18 114/73 96 06/12/22 05:39 60 16 95/62 L 96 06/12/22 01:27 74 18 112/67 97 06/11/22 23:50 74 18 122/74 98 06/11/22 22:26 36.9 C 65 18 148/75 H 97 O2 Del Method 06/12/22 07:26 Room Air 06/12/22 06:12 Room Air 06/12/22 05:39 Room Air 06/12/22 01:27 Room Air 06/11/22 23:50 Room Air 06/11/22 22:26 Room Air PG Care Time/CCT Total # of Minutes Spent Total Time Spent with Patient: Total time spent is greater than 50% in coordination of care (as documented) at patient's floor/unit and/or counseling patient: Coding Diagnoses Intractable low back pain M54.59 Cauda equina syndrome G83.4 Lumbar radiculopathy M54.16 Diabetes E11.9 Chronic hepatitis C B18.2
[2022-06-12] MEDS ORDERED: dexAMETHasone 8 MG in SYRINGE 0 ML IV SCH (10:00)
[2022-06-12 10:18] LABS: BUN Creatinine Ratio 15.2 (10-20); Bilirubin,Total 0.6 mg/dl (0.2-1.0); Calcium 9.3 mg/dl (8.6-10.3); Creatinine Clr Calc Pharmacy 106.7 ml/min; Est GFR (African American) 102.5 ml/min; Est GFR (Non-African American) 88.4 ml/min; Globulin 3.9 gm/dl (2.5-4.0); Magnesium 1.9 mg/dl (1.7-2.4); Total Protein 7.9 gm/dl (6.0-8.3)
[2022-06-12] MEDS ORDERED: oxyCODONE HCL IR 5 MG TAB (IMMEDIATE RELEASE) PO PRN (11:21)
[2022-06-12] MEDS ORDERED: LORazepam 0.5 MG TAB PO PRN (11:22)
--- NOTE | 2022-06-12 11:27 | XRay Report ---
XR lumbar spine 2-3V CLINICAL HISTORY: post op back pain COMPARISON STUDY: Lumbar spine MRI June 12, 2022. Lumbar spine fluoroscopic images January 14, 2022. FINDINGS: There are postoperative findings consistent with L3-L4 and L4-L5 discectomies with interbod y spacer placement. L3-L5 posterior decompression with bilateral pleural screw fusion is noted. The h ardware is intact. There is no lumbar spine fracture. No unexpected radiopaque foreign bodies are pre sent. IMPRESSION: 1. Status post L3-L5 discectomy, posterior decompression and bilateral pedicle screw fusion. Hardware intact. 2. No lumbar spine fracture. ACT 112: Negative or not required by law. Electronically signed by: Miguelangel Hernández M.D. 06/12/2022 11:25 AM
--- NOTE | 2022-06-12 13:02 | Orthopedic Consultation ---
Date of Consultation June 12, 2022 Assessment & Plan (1) Low back pain: MRI does not demonstrate any evidence of a new disc herniation or neural compression. X-rays demonstrate instrumentation be in place in proper alignment without evidence of loosening. Suspect this is a sprain strain phenomenon and he would require short course of medication and then return to therapy. History of Present Illness Reason for Consultation: Back pain Attending Physician: Car Patel MD History of Present Illness This is a 51-year-old male well-known to me the presents with worsening back pain yesterday. He denies any specific trauma fall or event. It is in the muscular region. Does not radiate down his legs. He otherwise has been r ecovering well with therapy after his surgery. Allergies Allergy/AdvReac Type Severity Reaction Status Date / Time Penicillins Allergy Intermediate HIVES Verified 06/12/22 01:06 morphine AdvReac Intermediate NAUSEA/VOMI Verified 06/12/22 01:06 TING Home Medications Medication Instructions Recorded Confirmed Type metformin 500 mg tablet 500 mg PO BID 04/18/22 06/12/22 History ondansetron HCl 4 mg tablet 4 mg PO TID PRN NAUSEA/VOMITING 04/18/22 06/12/22 H istory oxycodone-acetaminophen 5 mg-325 1 tab PO Q6H PRN pain #20 tabs 04/19/22 06/12/22 Rx mg tablet (Percocet) sofosbuvir 400 mg-velpatasvir 100 1 tab PO DAILY 06/12/22 06/12/22 History mg tablet Patient History Medical History Cervical radiculopathy Diabetes Shoulder pain Surgical History H/O wrist surgery Family History Mother Cancer Social History Smoking Status: Current every day smoker Second Hand Exposure: No; Hx Alcohol Use: No Hx Substance Use: Yes Last Used Substance: Hours (ago) Preferred Language: Faroese Communication Ability: Effective Hearing Ability: Normal 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 There is tenderness palpation of the lumbar musculature. There is no erythema no swelling. He has good strength testing of the lower extremities. Results & Data Vital Signs (Past 12 Hours) Vital Signs Temp Pulse Pulse Resp BP BP Pulse Ox 06/12/22 07:26 36.4 C L 61 17 107/68 98 06/12/22 06:12 36.4 C L 65 18 114/73 96 06/12/22 05:39 60 16 95/62 L 96 06/12/22 01:27 74 18 112/67 97 06/11/22 23:50 74 18 122/74 98 06/11/22 22:26 36.9 C 65 18 148/75 H 97 O2 Del Method 06/12/22 07:26 Room Air 06/12/22 06:12 Room Air 06/12/22 05:39 Room Air 06/12/22 01:27 Room Air 06/11/22 23:50 Room Air 06/11/22 22:26 Room Air
--- NOTE | 2022-06-12 13:11 | Discharge Summary ---
Date of Service June 12, 2022 Admission HPI Per Admitting Provider 51 yo male PMHx cauda equina syndrome and lumbar disc herniation with severe spinal stenosis and radiculopathy L3-L4 L4-5 s/p lumbar decompression and spinal fusion (01/14/22- Dr. Malone) presents with low back pain. Patient was getting out of his car earlier and with a twisting movement felt a sharp pain in his low back with radiation of pain down his left left. Associated numbness/tingling predominantly at bottom of left foot and L leg weakness. Pain has subsided since injury. Denies fever, fatigue, chest pain, sob, abd pain, N/V/D, constipation, dysuria. Denies symptoms of cauda equina including urinary/fecal incontinence and saddle anesthesia. Of note, since his back surgery, he has had some pain and numbness at site of hardware which seemed to be improving with the help of PT. He last saw Dr. Malone last week without complications. Has been tolerating surgical pain at home with tylenol/NSAIDs. Admission Exam Per Admitting Provider Constitutional: in no acute distress, pleasant, intact memory. AOx3. Vitals as above. HEENT: No scleral injection or discharge. Moist mucous membranes. Neck: Supple without lymphadenopathy or thyromegaly. Trachea midline. Lungs: Clear to auscultation bilaterally with good effort. Cardiac: Regular rate and rhythm. No murmurs. No extremity edema. 2+ distal peripheral pulses. Abdomen: Bowel sounds present. Soft, nontender, and nondistended.No guarding. No hepatosplenomegaly. MSK: No cyanosis or clubbing. Extremities motor strength RLE 5/5. LLE 4/5. Skin: No rashes, warm, dry. Incision site lumbar spine intact with no erythema/warmth/edema, mildly tender to palpation. Neurologic: no focal deficits. Decreased sensation L plantar foot otherwise normal sensation bilaterally. Pain in mid lumbar back region with L straight leg raise without radiating numbness/tingling down leg. Principal Diagnosis Acute Low Back Pain Discharge Exam Constitutional: WD/WN male sitting up in bed, on phone with , NAD but reports mild discomort initially in the morning HEENT: head normocephalic, atraumatic, trachea midline Resp: CTA, no w/c, on room air CV: RRR, no significant m/r/g, no pitting edema/calf tenderness GI: +BS, soft/NT : no pool MSK/Neuro: follows commands, no facial droop/slurred speech able to lift leg up in bed (reported not able to do that prior) slight decrease sensation L plantar foot, tenderness to palpation lumbar back prior incision site w/o evidence for infection strength equal b/l LE, possible slightly decreased dorsiflexion LLE compared to the right Psych: AOx3, pleasant and cooperative Discharge Data Allergies Allergy/AdvReac Type Severity Reaction Status Date / Time Penicillins Allergy Intermediate HIVES Verified 06/12/22 01:06 morphine AdvReac Intermediate NAUSEA/VOMI Verified 06/12/22 01:06 TING Consultations 06/12/22 03:53 ED Decision to Admit Stat 06/12/22 04:39 Consult Orthopedic Surgery Routine Ordered Studies Lumbar Spine MRI 06/11/22 22:44 Exam(s): MRI L SPINE Without Contrast EXAM: MR Lumbar Spine Without Intravenous Contrast CLINICAL HISTORY: Reason for exam: severe pain down left leg/weak. TECHNIQUE: Magnetic resonance images of the lumbar spine without intravenous contrast in multiple planes. There is metal artifact as well as motion artifact. COMPARISON: MRI lumbar spine 01/13/22. FINDINGS: Vertebrae: Marrow edema L3, L4, L5, nonspecific, has developed in the interval suggesting hardware loosening, failure or infection, most notable at L5. Metal artifact limits evaluation. Conus: No abnormal signal. Soft tissues: No paraspinous fluid collection. No epidural fluid collection. DISCS/SPINAL CANAL/NEURAL FORAMINA: L1-L2: Unremarkable. L2-L3: Unremarkable. L3-L4: Laminectomy and fusion with disc replacement. L4-L5: Disc replacement, laminectomy and fusion. L5-S1: Unremarkable. OTHER: Moderate facet hypertrophy throughout. No definite isolated disc herniation or central spinal stenosis. IMPRESSION: 1. There is marrow edema at L3, L4, and L5 associated with the hardware, nonspecific, concerning for complicating feature with the hardware such as failure, infection or loosening. 2. No disc herniation, epidural fluid collection or spinal stenosis. Electronically signed by: Sherry Alcaraz M.D. 06/12/22 03:58 AM Lumbar Spine X-Ray 06/12/22 09:52 XR lumbar spine 2-3V CLINICAL HISTORY: post op back pain COMPARISON STUDY: Lumbar spine MRI June 12, 2022. Lumbar spine fluoroscopic images January 14, 2022. FINDINGS: There are postoperative findings consistent with L3-L4 and L4-L5 discectomies with interbody spacer placement. L3-L5 posterior decompression with bilateral pleural screw fusion is noted. The hardware is intact. There is no lumbar spine fracture. No unexpected radiopaque foreign bodies are present. IMPRESSION: 1. Status post L3-L5 discectomy, posterior decompression and bilateral pedicle screw fusion. Hardware intact. 2. No lumbar spine fracture. ACT 112: Negative or not required by law. Electronically signed by: Miguelangel Hernández M.D. 06/12/2022 11:25 AM Hospital Course (1) Intractable low back pain: 51 yo male PMHx cauda equina syndrome and lumbar disc herniation with severe spinal stenosis and radiculopathy L3-L4 L4-5 s/p lumbar decompression and spinal fusion (01/14/22- Dr. Malone) presents with low back pain after getting out of his car with reported radiation down left leg, numbness/tingling and had been continuing PT outpt w/ Dr Malone's office MRI of lumbar spine showed marrow edema at L3, L4, L5 associated w/ his hardware, possible loosening vs ?infection. No leukocytosis on admit/fevers reported. Site looks good. ESR 31, CRP slight bump 0.59 Had received 10mg IV dexamethasone in ED, along with Ativan, morphine, fentanyl for pain relief and placed on Dilaudid IV/Tylenol for pain Consultation placed for Dr Malone -- discussed pain control and ordered additional 8mg Decadron IV x 1 and recommended additional x-rays for further eval but did not feel he would need surgery Dr Malone reviewed additional x-ray lumbar spine and felt stable findings and patient able to discharge on Medrol dose pack as well as oral Oxycodone, continue therapy outpatient Aware of red flag symptoms/return to ER if these occur. DM2 Held oral metformin inpatient and placed on SSI A1c last in system 7.4 from January 2022 Medrol dose pack at d/c, resume metformin --> rec f/u with PCP/repeat A1c as outpatient and increase meformin to 1gm BID if able to tolerate, additional meds if further elevation outpatient Hepatitis C, chronic Of note, discussed with patient, LFTs improved on repeat and better than earlier this year. He actually JUST STARTED the daily sofosbuvir-velpatasvir with [facility] and rec outpt f/u (2) Cauda equina syndrome: (3) Lumbar radiculopathy: (4) Diabetes: (5) Chronic hepatitis C: Total Time Total Time Spent Total Time Spent (In Minutes): 50 Discharge Plan Discharge Items Patient Disposition: Home - Self-Care Reason For Visit: INTRACTABLE BACK PAIN Discharge Diagnosis: Back Pain Condition on Discharge: Good Activity: As commented below Non-emergency contact: Primary Care Provider Call non-emergency contact if: you have any medication questions, your symptoms worsen, your pain is not controlled and your pain is concerning for you Follow-up/Referrals: Petr Malone DO [Surgeon] - Bushra Adam CRNP [Primary Care Provider] - Diet: Regular Addtl Attending Provider Instructions: You have been hospitalized for back pain. MRI of the lumbar spine was obtained and reviewed by Dr Malone, who ordered additional x-ray imaging and felt related more to a strain and recommended a course of steroid taper at discharge and pain control. You should continue therapy to work on strengthening/conditioning in the meantime. If you experience any worsening pain, weakness, numbness/tingling, loss of bowel/bladder function please return to the closest emergency department. Please follow up with your primary care provider in the next week. Your liver enzymes were slightly elevated but better than they were in March. Cautious use of Tylenol while on treatment for your Hepatitis and recommend you follow up with your GI provider regarding ongoing treatment. It has been a pleasure being a part of the medical team providing for you while you have been in the hospital. Take care! Pending Studies at Discharge: Yes Studies:: Hep panel Stand-Alone Forms: [facility], [facility] - Opioid Pain Management, Smoking Cessation Medications and DC Order Prescriptions: New oxycodone 5 mg Tablet 5 mg PO Q4H PRN (Reason: pain) Qty: 16 0RF methylprednisolone [Medrol (Dmitry)] 4 mg tablets,dose pack 4 mg PO DAILY Qty: 21 0RF Rx Instructions: take taper as prescribed Continued metformin 500 mg tablet 500 mg PO BID ondansetron HCl 4 mg tablet 4 mg PO TID PRN (Reason: NAUSEA/VOMITING) sofosbuvir-velpatasvir 400-100 mg tablet 1 tab PO DAILY Discontinued oxycodone-acetaminophen [Percocet] 5-325 mg tablet 1 tab PO Q6H PRN (Reason: pain) Qty: 20 0RF Discharge Orders: Discharge Order (Routine); Ordered 06/12/22 Ordered By: Lady Duncan/Other Patient Handouts: Relieving Back Pain Admission Data Admit Date/Time: 06/12/22 04:37 Attending Provider: Car Patel Admit Provider: Gelacio Covington Primary Care Provider: Bushra Adam Other Providers: Petr Malone ; Adela Hallman Other Interventions: Discharge Summary Assessment (RN) Last Done: 06/12/22 13:29 Supervising Physician Co-Signing Physician Notes The patient was seen by me. The chart was reviewed. Case discussed with OBI Billingsley. Agree with assessment and plan. He will be discharged home today Coding Level of Care Code 97154 INP/OBS DISCH >30 MIN Diagnoses Intractable low back pain M54.59 Cauda equina syndrome G83.4 Lumbar radiculopathy M54.16 Diabetes E11.9 Chronic hepatitis C B18.2
[2022-06-16 10:42] LABS: HBSAG NON-REACTIVE (NON-REACTIVE); Hepatitis A Antibody IgM NON-REACTIVE (NON-REACTIVE); Hepatitis B Core Antibody IgM NON-REACTIVE (NON-REACTIVE)
[2022-06-17 09:41] LABS: Hepatitis C Vira RNA (Log) PCR 3.33 Log IU/mL (NOT DETECTED); Hepatitis C Viral RNA by PCR 2150 IU/mL (NOT DETECTED)
== END 2022-06-12 13:53 | disposition home or self-care (01) ==
LOC: ED 22:10 → 3N 22:10 → SUATTDRO 06-12 04:37 → 3N 06-12 05:43

== ENCOUNTER 2022-08-06 23:26 | Inpatient (IN) ==
[2022-08-06] MEDS ORDERED: oxyCODONE/ACETAMINOPHEN 5mg/325mg TAB PO STA (23:45)
--- NOTE | 2022-08-06 23:52 | Emergency Department Note ---
Impression & Plan Acute exacerbation of chronic low back pain ED Provider Note CHIEF COMPLAINT: Low back pain HISTORY OF PRESENT ILLNESS: This 52-year-old male patient presents to the emergency department by private vehicle complaining of pain in the low back which became worse this evening. The patient notes a history of chronic back pain after an injury and has had previous surgery on his back. He states that he shifted and possibly twisted a little bit in his lower back while sitting in a chair and "felt something move in my lower back" and got worse pain. He states at baseline that he has pain in his lower back that radiates into his buttock and testicle region as well as down into his legs and also has intermittent tingling in the bottoms of his feet at baseline. He is primarily complaining of shooting pain down the side of his right leg that is worse than usual. He denies any new numbness or tingling and has not had any new weakness. He denies any loss of control of the bowel or bladder functions. He does note that he is followed by Dr. Malone and had a lumbar fusion performed in January. He also notes seeing the PA yesterday and had x-rays that showed a possible problem with the surgical hardware and states he is supposed to be scheduled for a repeat fusion surgery at some point. The patient notes the pain as aching and sharp and rates the pain 8/10. He did not take anything for relief of the pain prior to arrival. He states he normally manages his chronic pain with [id number] medications and is not on any narcotics. He denies any nausea or vomiting or abdominal pain. No chest pain or shortness of breath. He denies any urinary symptoms. REVIEW OF SYSTEMS: A complete 10 point review of systems was reviewed with the patient with pertinent positives and negatives as per history of present illness. All else were negative. ALLERGIES: Reviewed in chart and with the patient PMH: Diabetes, history of lumbar fusion for cauda equina syndrome SOCIAL HISTORY: Lives at home, he denies tobacco use PHYSICAL EXAM: GENERAL: Pleasant and cooperative, in no acute distress, non-diaphoretic, well- developed well-nourished. SKIN: The skin was without rashes, erythema, edema, or bruising. Capillary refill less than 2 seconds. NECK: Supple without nuchal rigidity. No cervical spine tenderness. No paraspinous muscle tenderness. HEART: Regular rate and rhythm without murmurs gallops or rubs. LUNGS: Clear to auscultation bilaterally without wheezes, rales or rhonchi. ABDOMEN: Positive bowel sounds x 4. Normal tympanic percussion. Soft, no ntender, without masses or organomegaly. Foote sign negative. MUSCULOSKELETAL: No muscle atrophy, erythema, or edema noted of the back. There is diffuse tenderness over the lumbar region and musculature. Patient has a back brace in place. The patient is slow to move around with maximum tenderness with bending at the waist. Positive straight leg raise test on right. NEURO: Patient was alert and oriented to person place and time. Normal sensation to light and sharp touch. Deep tendon reflexes 2+ in the lower extremities. Dorsalis pedis pulse 2+ bilaterally. Strength 5/5 and equal in the bilateral lower extremities, dorsiflexion and plantarflexion intact and equal bilaterally. ED COURSE AND MEDICAL DECISION MAKING: CC: Patient presenting with complaint of low back pain DIFFERENTIAL DIAGNOSIS: Includes, but not limited to musculoskeletal strain/spasm, disc herniation, fracture, surgical hardware dysfunction, cord compression, sciatica, cauda equina, exacerbation of chronic pain, among others. MEDICATION RECONCILIATION: I attest that I have personally reviewed the patient's current medication list. INITIAL VITAL SIGNS REVIEW: I reviewed the patient's initial vital signs and interpret them as follows: T: Afebrile; BP: Hypertensive; HR: Within normal limits; RR: Within normal limits; Pulse Ox: Within normal limits on room air. MDM SUMMARY: Patient was evaluated at bedside, history and physical exam performed. Patient is alert and oriented, in no acute distress, resting calmly in the stretcher. He is slow to move around and appears uncomfortable from pain with certain movements. He is neurovascularly intact with no focal deficits on exam. He denies any new or different numbness, tingling, or weakness in his legs and primarily is complaining of worsening of his baseline pain. He denies any bowel or bladder dysfunction. I do not suspect spinal cord involvement or cauda equina at this time. He has a history of a lumbar fusion surgery for cauda equina about 8 months ago, and reports there have been complications with his surgical repair and he may need to have repeat surgery. Orders were placed for p.o. Percocet for pain and CT of the lumbar spine to evaluate for low back pain. Patient discussed with Dr. Phillips, who agrees with my assessment, plan, and disposition. CT imaging reviewed, no acute fracture seen, findings of previous lumbar fusion L3-L5, with note of slight lucencies along bilateral L5 pedicle screws concerning for minimal loosening. Patient continues to complain of significant pain after receiving Percocet and does not feel comfortable going home with prescription pain management. Additional order was placed for IM Toradol. I spoke on the phone with Dr. Malone, [facility]osp[facility], he did not feel the patient warranted any emergent intervention at this time, but felt it was reasonable to admit him for pain control and he will see the patient in the morning. I did place orders for IV saline lock and IV dilaudid for additional pain management, and COVID test was also ordered. I spoke on the phone with Dr. Herrera, [facility] Hospitalist, who agreed to evaluate the patient for admission. The patient and his were updated on all results and plan for admission. The patient was stable at the time of admission. The chart was completed utilizing [employer] Speech voice recognition software. Grammatical errors, random word insertions, pronoun errors, and incomplete sentences are an occasional consequence of this system due to software limitations, ambient noise, and hardware issues. Any formal questions or concerns about the content, text, or information contained within the body of this dictation should be directly addressed to the nurse practitioner for clarification. 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 Beliefs That Will Affect Care: None marital status: Life Partner Current Living Situation: Significant Other Feels Safe at Home: Yes Assistive Devices: Cane and Walker Allergies Allergies Allergy/AdvReac Type Severity Reaction Status Date / Time Penicillins Allergy Intermediate HIVES Verified 08/07/22 00:07 morphine AdvReac Intermediate NAUSEA/VOMI Verified 08/07/22 00:07 TING Home Meds Home Medications Medication Instructions Recorded Confirmed metformin 500 mg tablet 500 mg PO BID 04/18/22 08/07/22 ondansetron HCl 4 mg tablet 4 mg PO TID PRN NAUSEA/VOMITING 04/18/22 08/07/22 sofosbuvir 400 mg-velpatasvir 100 1 tab PO DAILY 06/12/22 08/07/22 mg tablet Results & Data (ED) Vital Signs Vital Signs - 24 hr 08/06/22 23:29 08/07/22 01:00 Temperature 36.7 C Temperature Source Temporal Artery Scan Pulse Rate 73 Pulse Rate [Finger] 59 L Respiratory Rate 18 16 Respiratory Effort / Characteristics Non-Labored Spontaneous Non-Labored Respiratory Depth Normal Normal Respiratory Pattern Regular Blood Pressure 193/114 H Blood Pressure [Right Arm] 146/91 H Blood Pressure Mean 140 Blood Pressure Mean [Right Arm] 109 Pulse Oximetry 98 95 Oxygen Delivery Method Room Air Room Air Sepsis Recent Fever Within 48 Hours No Sepsis New/Unexplained Change in Mental Status No Sepsis Action Taken by Nursing No Action Required Laboratory Data 08/07/22 07:46 08/07/22 07:46 Administered Medications Acetaminophen (Acetaminophen 500 Mg Tab) 1,000 mg PO Q8H PRN PRN Reason: pain- first line Stop: 09/06/22 04:13 Last Admin: 08/07/22 10:23 Dose: 1,000 mg Documented By: Admin: 08/07/22 04:20 Dose: 1,000 mg Documented By: ANAYELI Heparin Sodium (Porcine) (Heparin Sod 5,000 Unit/0.5 Ml Vial) 5,000 units SQ Q12 NARENDRA Stop: 09/06/22 08:59 Last Admin: 08/07/22 08:49 Dose: 5,000 units Documented By: JM Insulin Aspart (Insulin Aspart Per Unit Charge) 0 units SC ACHS NARENDRA Stop: 09/06/22 07:59 Last Admin: 08/07/22 12:36 Dose: Not Given Documented By: Admin: 08/07/22 08:48 Dose: 7 units Documented By: JM Co-signed By: ARTHUR Ketorolac Tromethamine (Ketorolac Tromethamine 15 Mg/Ml Vial) 15 mg IV Q6H PRN PRN Reason: Pain breakthrough Stop: 08/12/22 04:13 Last Admin: 08/07/22 15:47 Dose: 15 mg Documented By: Admin: 08/07/22 10:23 Dose: 15 mg Documented By: Admin: 08/07/22 04:49 Dose: 15 mg Documented By: ANAYELI Oxycodone HCl (Oxycodone Hcl Ir 5 Mg Tab (Immediate Release)) 5 mg PO Q4H PRN PRN Reason: Pain Stop: 08/21/22 14:15 Last Admin: 08/07/22 13:53 Dose: 5 mg Documented By: JM Discontinued Medications Hydromorphone HCl (Hydromorphone Inj 0.5 Mg/0.5 Ml Syr) 0.5 mg IV NOW STA Stop: 08/07/22 01:28 Last Admin: 08/07/22 02:09 Dose: 0.5 mg Documented By: NATHALIE Hydromorphone HCl (Hydromorphone Inj 0.5 Mg/0.5 Ml Syr) 0.5 mg IV Q6H PRN PRN Reason: Pain Stop: 08/21/22 09:20 Last Admin: 08/07/22 09:41 Dose: 0.5 mg Documented By: JM Insulin Glargine (Lantus Per Unit Charge) 15 units SC BID NARENDRA Stop: 09/06/22 08:59 Last Admin: 08/07/22 08:49 Dose: 15 units Documented By: JM Co-signed By: ARTHUR Ketorolac Tromethamine (Ketorolac Tromethamine 60 Mg/2 Ml Vial) 60 mg IM NOW STA Stop: 08/07/22 00:46 Last Admin: 08/07/22 01:00 Dose: 60 mg Documented By: NATHALIE Oxycodone HCl (Oxycodone Hcl Ir 5 Mg Tab (Immediate Release)) 5 mg PO NOW STA Stop: 08/07/22 05:13 Last Admin: 08/07/22 05:18 Dose: 5 mg Documented By: ANAYELI Oxycodone/Acetaminophen (Oxycodone/Acetaminophen 5mg/325mg Tab) 1 tab PO NOW STA Stop: 08/06/22 23:46 Last Admin: 08/06/22 23:55 Dose: 1 tab Documented By: NATHALIE Imaging Data Radiologist's Impression: Lumbar Spine CT 08/06/22 23:45 Exam(s): CT L SPINE EXAM: CT Lumbar Spine Without Intravenous Contrast CLINICAL HISTORY: Reason for exam: pain, eval hardware. TECHNIQUE: Axial computed tomography images of the lumbar spine without intravenous contrast. CTDI is 39.4 mGy and DLP is 1291.25 mGy-cm. Automated exposure control was utilized for the study. A dose lowering technique was utilized adhering to the principles of ALARA. COMPARISON: No relevant prior studies available. FINDINGS: The vertebral body heights are maintained. The lumbar lordosis is preserved. There is no spondylolisthesis. The posterior elements are maintained, without evidence of acute fracture. The pedicles are intact. Posterior lumbar fusion L3, L4, and L5. Paired screws in the parallel spinal stabilization rods. Mild lucency along the bilateral L5 pedicle screws, concerning for minimal loosening. Posterior decompression at L3 and L4. Bone graft material. Multilevel lumbar spondylosis and degenerative disc disease. IMPRESSION: No acute lumbar spine fracture. Posterior lumbar fusion L3-L5. Mild lucency along the bilateral L5 pedicle screws, concerning for minimal loosening. Electronically signed by: Nato Sanchez MD 08/07/22 00:30 AM Discharge Plan Visit Data Chief Complaint: Back Injury/Pain Stated Complaint: LOWER BACK PAIN RADIATING TO LEGS ED Provider: Joelle Phillips ED Midlevel Provider: Jaycee Rick Discharge Problem: Acute exacerbation of chronic low back pain Patient Disposition: Admitted As Inpatient Discharge Instructions Interventions: ED Discharge Assessment Last Done: 08/07/22 03:21
--- NOTE | 2022-08-07 00:31 | CT Scan Report ---
Exam(s): CT L SPINE EXAM: CT Lumbar Spine Without Intravenous Contrast CLINICAL HISTORY: Reason for exam: pain, eval hardware. TECHNIQUE: Axial computed tomography images of the lumbar spine without intravenous contrast. CTDI is 39.4 mGy and DLP is 1291.25 mGy-cm. Automated exposure control was utilized for the study. A dose lowering technique was utilized adhering to the principles of ALARA. COMPARISON: No relevant prior studies available. FINDINGS: The vertebral body heights are maintained. The lumbar lordosis is preserved. There is no spondylolisthesis. The posterior elements are maintained, without evidence of acute fracture. The pedicles are intact. Posterior lumbar fusion L3, L4, and L5. Paired screws in the parallel spinal stabilization rods. Mild lucency along the bilateral L5 pedicle screws, concerning for minimal loosening. Posterior decompression at L3 and L4. Bone graft material. Multilevel lumbar spondylosis and degenerative disc disease. IMPRESSION: No acute lumbar spine fracture. Posterior lumbar fusion L3-L5. Mild lucency along the bilateral L5 pedicle screws, concerning for minimal loosening. Electronically signed by: Nato Sanchez MD 08/07/22 00:30 AM
[2022-08-07] MEDS ORDERED: KETOROLAC TROMETHAMINE 60 MG/2 ML VIAL IM STA (00:45)
[2022-08-07] MEDS ORDERED: HYDROmorphone INJ 0.5 MG/0.5 ML SYR IV STA (01:27)
[2022-08-07] MEDS ORDERED: ACETAMINOPHEN 325 MG TAB PO PRN (03:42)
[2022-08-07] MEDS ORDERED: ALUMINUM/MAGNESIUM SUSP 30 ML UDC PO PRN (03:42)
[2022-08-07] MEDS ORDERED: ONDANSETRON 4 MG OD TAB PO PRN (03:51)
[2022-08-07] MEDS: ACETAMINOPHEN 500 MG TAB PO PRN ×3 (04:20→19:52)
[2022-08-07] MEDS: KETOROLAC TROMETHAMINE 15 MG/ML VIAL IV PRN ×3 (04:49→15:47)
[2022-08-07] MEDS ORDERED: oxyCODONE HCL IR 5 MG TAB (IMMEDIATE RELEASE) PO STA (05:12)
--- NOTE | 2022-08-07 06:14 | History & Physical Report ---
Date of Service August 07, 2022 Assessment & Plan (1) Acute exacerbation of chronic low back pain: Plan: Patient presents to the ED with complaints of acute worsening of his chronic lumbar pain. Patient had prior lumbar fusion surgery done by Dr. Malone in January 27 and patient reports there is plans to do repeat fusion surgery in the near future. Patient had twisted his back while sitting in a chair and reports acute worsening of his lumbar pain along with severe radiculopathy. Patient unable to ambulate safely and needs significant amount of analgesics for pain control. Continue IV analgesics as needed Patient has no urinary incontinence or saddle anesthesia reported CT spine shows posterior lumbar fusion L3-L4 and L5 with pedicle screws in the parallel spinal stabilization rods along with posterior decompression at L3 and L4. Patient noted to have multilevel lumbar spondylosis and degenerative disc disease. CT also reports mild lucency along the bilateral L5 pedicle screws concerning for minimal loosening. obtain orthopedic surgery input from Dr. Malone PT OT input once neurosurgery clearance obtained (2) Lumbar radiculopathy: Plan: Patient reports lumbar radiculopathy with sciatica symptoms bilaterally No urinary or bowel incontinence reported Continue symptomatic management (3) Chronic hepatitis C: Plan: Patient on antiviral therapy for hepatitis C which will be continued (4) Diabetes: Plan: Patient on metformin at home for diabetic management. Hold oral hypoglycemics while inpatient Patient will be placed on sliding scale coverage short acting insulin based on fingerstick monitoring while inpatient Check hemoglobin A1c level Admission and Anticipated Discharge Date Admission Date: August 07, 2022 History of Present Illness Chief Complaint: Patient presents to ED with acute worsening low back pain Primary Care Provider: YOLIE Edwards This is a 52-year-old male with past medical history significant for prior lumbar surgery history of diabetes mellitus on metformin and history of chronic hepatitis C who presents to the emergency department with acute worsening of low back pain. Patient reports that he has a history of chronic back pain and prior lumbar surgery done. Patient reportedly twisted his back while sitting in a chair and suddenly felt acute shock and subsequent worsening of his lumbar pain. Patient reports that the pain is constant and radiates into his buttock and down his leg and also patient reports some intermittent tingling sensation in the bottom of his feet. Patient had a prior lumbar fusion surgery done by Dr. Malone in January and reports that a redo surgery was being planned at some point in the future during his last visit. Patient had taken [id number] medications without significant improvement in his pain and presents to ED for further evaluation.. Upon evaluation in the ED patient continues to have severe lumbar pain and is unable to ambulate safely and hence is being admitted for further management of his worsening lumbar pain and for obtaining spinal surgery evaluation. Allergies Allergy/AdvReac Type Severity Reaction Status Date / Time Penicillins Allergy Intermediate HIVES Verified 08/07/22 00:07 morphine AdvReac Intermediate NAUSEA/VOMI Verified 08/07/22 00:07 TING Home Medications Medication Instructions Recorded Confirmed Type metformin 500 mg tablet 500 mg PO BID 04/18/22 08/07/22 History ondansetron HCl 4 mg tablet 4 mg PO TID PRN NAUSEA/VOMITING 04/18/22 08/07/22 History sofosbuvir 400 mg-velpatasvir 100 1 tab PO DAILY 06/12/22 08/07/22 History mg tablet Past Med/Surg History Medical History Cervical radiculopathy Diabetes Shoulder pain Surgical History H/O wrist surgery Family History Mother Cancer Social History Smoking Status: Never smoker Second Hand Exposure: No; Do You Dip or Chew Tobacco: No; Hx Alcohol Use: No Hx Substance Use: Yes Last Used Substance: Hours (ago) Substance Use Type Other:: medical marijuana pt Preferred Language: Mongolian Communication Ability: Effective Hearing Ability: Normal Water Quality Specialist Required: No Beliefs That Will Affect Care: None marital status: Life Partner Current Living Situation: Significant Other Other Information That Helps Us Care for You: No Feels Safe at Home: Yes Safety Concerns: Feels Safe At This Time Assistive Devices: Brace/Splint/Immobilizer Assistive Devices Comment: back brace Review of Systems Review of Systems: Constitutional-no fever or chills ENT-no blurred vision, no double vision, no epistaxis, Respiratory- no shortness of breath noted with exertion. No wheezing Cardiac-no palpitations, no chest pain, no syncope GI-no nausea, vomiting, diarrhea, melena, -no urinary retention, no urinary incontinence, Musculoskeletal-presents with low back pain and sciatica Skin-no bruising, Neuro-no isolated weakness, no urinary incontinence but reports sciatica Physical Exam Physical Exam: Head and ENT no thyroid enlargement trachea midline Cardiovascular S1-S2 are normal no S3 Lungs bilateral air entry fair no wheezing Abdomen soft nondistended positive bowel sounds no rebound tenderness Extremity shows trace edema Neurologically no focal deficits patient has sciatica reported Gait not tested due to significant pain reported by patient Skin shows no rash no cyanosis Results & Data Results & Data Vital Signs (Past 12 Hours) Vital Signs Temp Pulse Pulse Pulse Resp BP BP 08/07/22 05:17 76 141/85 H 08/07/22 03:43 36.4 C L 56 L 16 08/07/22 03:21 08/07/22 03:00 53 L 15 08/07/22 02:00 56 L 18 08/07/22 01:00 59 L 16 08/06/22 23:29 36.7 C 73 18 193/114 H BP Pulse Ox O2 Del Method 08/07/22 05:17 08/07/22 03:43 167/107 H 94 Room Air 08/07/22 03:21 Room Air 08/07/22 03:00 129/77 95 Room Air 08/07/22 02:00 153/92 H 96 Room Air 08/07/22 01:00 146/91 H 95 Room Air 08/06/22 23:29 98 Room Air Diagnostic Findings Lumbar Spine CT 08/06/22 23:45 Exam(s): CT L SPINE EXAM: CT Lumbar Spine Without Intravenous Contrast CLINICAL HISTORY: Reason for exam: pain, eval hardware. TECHNIQUE: Axial computed tomography images of the lumbar spine without intravenous contrast. CTDI is 39.4 mGy and DLP is 1291.25 mGy-cm. Automated exposure control was utilized for the study. A dose lowering technique was utilized adhering to the principles of ALARA. COMPARISON: No relevant prior studies available. FINDINGS: The vertebral body heights are maintained. The lumbar lordosis is preserved. There is no spondylolisthesis. The posterior elements are maintained, without evidence of acute fracture. The pedicles are intact. Posterior lumbar fusion L3, L4, and L5. Paired screws in the parallel spinal stabilization rods. Mild lucency along the bilateral L5 pedicle screws, concerning for minimal loosening. Posterior decompression at L3 and L4. Bone graft material. Multilevel lumbar spondylosis and degenerative disc disease. IMPRESSION: No acute lumbar spine fracture. Posterior lumbar fusion L3-L5. Mild lucency along the bilateral L5 pedicle screws, concerning for minimal loosening. Electronically signed by: Nato Sanchez MD 08/07/22 00:30 AM Code Status & VTE Plan VTE Prophylaxis Plan VTE Prophylaxis will be ordered: Yes PG Care Time/CCT Total # of Minutes Spent Total Time Spent with Patient: Total time spent is greater than 50% in coordination of care (as documented) at patient's floor/unit and/or counseling patient: Coding Level of Care Code None Diagnoses Acute exacerbation of chronic low back pain M54.50; G89.29 Lumbar radiculopathy M54.16 Chronic hepatitis C B18.2 Diabetes E11.9
--- NOTE | 2022-08-07 07:26 | Hospitalist Progress Note ---
Date of Service August 07, 2022 Assessment & Plan (1) Cauda equina syndrome: (2) Acute exacerbation of chronic low back pain: (3) Lumbar radiculopathy: (4) Diabetes: (5) Chronic hepatitis C: Plan Bird is a 52 y/o M with PMHx of cauda equina syndrome and lumbar disc herniation with severe spinal stenosis/associated radiculopathy of L3-L4 and L4-L5 s/p lumbar decompression + spinal fusion (Dr. Malone 01/14/22) who presented with acute exacerbation of his pain. #history of cauda equina syndrome #acute exacerbation of low back pain #lumbar radiculopathy -Pain poorly controlled, no red flag symptoms, WBC normal -Analgesia while inpatient: Tylenol, Toradol, Oxycodone, Dilaudid -Pt had nausea, received Zofran -CT lumbar spine: No acute lumbar spine fracture, posterior lumbar fusion L3-L5, mild lucency along the bilateral L5 pedicle screws, concerning for minimal loosening. -Orthopedic consultation with Dr. Malone appreciated: surgery scheduled for August 21 to return home from orthopedic standpoint. -Patient initially eager to d/c home today, but after talking with patient and his - his pain remains too severe to be handled at home -Ordered Dilaudid 1mg IV now, will add Dilaudid 0.5mg IV q4h PRN #diabetes mellitus, non-insulin dependent -HgbA1C from 01/14/22 was 7.4%, A1C ?11% three months ago -complicated by neuropathy -religious educator met with patient, notes he stopped taking home Metformin back in June due to GI side effects -Consider restarting Metformin (extended release form) on discharge for hopefully better tolerance #chronic hepatitis C Sofosbuvir/velpatasvir 400/100 mg tablet PO q24hr FENGI: heart healthy/carb consistent DVT ppx: heparin 5,000 units SQ Q12 Dispo: Full code Admission and Anticipated Discharge Date Admission Date: August 07, 2022 Supervising Physician Co-Signing Physician Notes Medical Student Supervision Note: I was personally present during medical student patient encounter and independently interviewed and examined the patient and verified the treviño history and physical, reviewed labs and image studies, discussed the case with Nick Foote and agree with the findings and care plan. Intractable back pain, acute exacerbation of chronic pain - Lumbar radiculopathy --Surgery scheduled as outpatient on . --continue pain control with IV meds with goal to be discharged home on PO meds. --IV zofran for nausea DM - religious educator consult done due to uncontrolled DM as outpatient. --continue Lantus and aspart insulin. He has made dietary changes as outpatient. --Not on metformin due to GI side effect Hep C --Epclusa also contributing to GI symptoms. --Zofran prn Subjective Bird finds it very difficult to find a comfortable position. Most movements exacerbate the pain, especially leaning forward. He feels like the hardware in his back moves when he moves. Two days ago on 08/05/22 he saw a physician programs assistant at Dr. Malone's office and to his knowledge he does not think he will undergo an additional surgery. At-home analgesia consists of a back brace worn throughout most of the day, bone stimulator, ice, heat and OTC pain medications (Tylenol/ibuprofen). For a brief moment today he noticed a pinching sensation in his right testicle with movement, since resolved. Otherwise he has urinated and passed stool without numbness or tingling in the genital region. Since his cauda equina syndrome diagnosis he notes persistent trouble achieving an erection. He has neuropathy in both his feet which he attributes to his diabetes. No fevers or chills. Review of Systems Review of Systems: All systems reviewed & are unremarkable except as noted in HPI & below Physical Exam Physical Exam: Lying supine in bed, appears to be in pain with movement, otherwise not toxic appearing Respiratory: no conversational dyspnea, normal respiratory effort, lungs CTA BL without rales/rhonchi/wheeze Cardiovascular: normal S1, S2, regular rate and rhythm, no M/R/G Musculoskeletal: Back exam: painful transition from supine to seated position. +healed incision noted over lumbar area, +pain with palpation to the lumbar/sacral area near incision Lower extremity exam: Appearance: symmetrical muscle tone/bulk Sensation: intact sensation to gross touch to anterior/lateral aspect of legs with diminished sensation in the dorsum of both feet Strength: 5/5 hip flexion, dorsiflexion/plantar flexion of both feet. R hip flexion elicits pain in the R inguinal area ROM: hip flexion intact Neurologic: CN 2-12 intact Lymphatic: no LE edema BL Results & Data Results & Data Vital Signs (Past 12 Hours) Vital Signs Temp Pulse Pulse Pulse Resp BP BP 08/07/22 05:17 76 141/85 H 08/07/22 03:43 36.4 C L 56 L 16 08/07/22 03:21 08/07/22 03:00 53 L 15 08/07/22 02:00 56 L 18 08/07/22 01:00 59 L 16 08/06/22 23:29 36.7 C 73 18 193/114 H BP Pulse Ox O2 Del Method 08/07/22 05:17 08/07/22 03:43 167/107 H 94 Room Air 08/07/22 03:21 Room Air 08/07/22 03:00 129/77 95 Room Air 08/07/22 02:00 153/92 H 96 Room Air 08/07/22 01:00 146/91 H 95 Room Air 08/06/22 23:29 98 Room Air Laboratory Results Laboratory Results WBC 7.59 K/ul (4.8-10.8) 08/07/22 07:46 RBC 4.61 M/uL (4.70-6.10) L 08/07/22 07:46 Hgb 14.0 g/dl (14.0-18.0) 08/07/22 07:46 Hct 40.9 % (42.0-52.0) L 08/07/22 07:46 MCV 88.7 fL (80.0-100.0) 08/07/22 07:46 MCH 30.4 pg (25.0-34.0) 08/07/22 07:46 MCHC 34.2 g/dL (32.0-36.0) 08/07/22 07:46 RDW Std Deviation 41.8 fL (36.4-46.3) 08/07/22 07:46 RDW Coeff of Tulio 12.9 % (11.5-14.5) 08/07/22 07:46 Plt Count 158 K/uL (130-400) 08/07/22 07:46 MPV 10.7 fL (9.4-12.4) 08/07/22 07:46 Sodium 138 mmol/L (136-145) 08/07/22 07:46 Potassium 3.9 mmol/L (3.5-5.1) 08/07/22 07:46 Chloride 104 mmol/L (98-107) 08/07/22 07:46 Carbon Dioxide 30 mmol/L (21-32) 08/07/22 07:46 Anion Gap 4 (3-11) 08/07/22 07:46 BUN 19 mg/dl (6-23) 08/07/22 07:46 Creatinine 1.24 mg/dl (0.6-1.4) 08/07/22 07:46 Est Cr Clr Drug Dosing 81.9 ml/min 08/07/22 07:46 Est GFR ( Amer) 77.5 ml/min 08/07/22 07:46 Est GFR (Non-Af Amer) 66.9 ml/min 08/07/22 07:46 BUN/Creatinine Ratio 15.3 (10-20) 08/07/22 07:46 Glucose 155 mg/dl (70-99(Fasting)) H 08/07/22 07:46 POC Glucose 150 mg/dl (70-99) H 08/07/22 08:13 Calcium 9.6 mg/dl (8.6-10.3) 08/07/22 07:46 SARS-CoV-2, RNA, NAAT NEGATIVE (NEGATIVE) 08/07/22 01:[address] 08/06/22 23:45 Exam(s): CT L SPINE EXAM: CT Lumbar Spine Without Intravenous Contrast CLINICAL HISTORY: Reason for exam: pain, eval hardware. TECHNIQUE: Axial computed tomography images of the lumbar spine without intravenous contrast. CTDI is 39.4 mGy and DLP is 1291.25 mGy-cm. Automated exposure control was utilized for the study. A dose lowering technique was utilized adhering to the principles of ALARA. COMPARISON: No relevant prior studies available. FINDINGS: The vertebral body heights are maintained. The lumbar lordosis is preserved. There is no spondylolisthesis. The posterior elements are maintained, without evidence of acute fracture. The pedicles are intact. Posterior lumbar fusion L3, L4, and L5. Paired screws in the parallel spinal stabilization rods. Mild lucency along the bilateral L5 pedicle screws, concerning for minimal loosening. Posterior decompression at L3 and L4. Bone graft material. Multilevel lumbar spondylosis and degenerative disc disease. IMPRESSION: No acute lumbar spine fracture. Posterior lumbar fusion L3-L5. Mild lucency along the bilateral L5 pedicle screws, concerning for minimal loosening. Electronically signed by: Nato Sanchez MD 08/07/22 00:30 AM
[2022-08-07] MEDS ORDERED: PHARMACY GLYCEMIC MGMT CONSULT PRN (07:41)
[2022-08-07] MEDS ORDERED: CARBOHYDRATES FOR HYPOGLYCEMIA PO PRN (07:41)
[2022-08-07] MEDS ORDERED: GLUCAGON FOR INJ 1 MG VIAL SQ PRN (07:41)
[2022-08-07] MEDS ORDERED: DEXTROSE 50% 50 ML SYRINGE IV PRN (07:41)
[2022-08-07] MEDS ORDERED: GLUCOSE 40% GEL 15 GM TUBE PO PRN (07:41)
[2022-08-07] MEDS ORDERED: metFORMIN HCL 500 MG TAB PO SCH (08:00)
[2022-08-07] MEDS: INSULIN ASPART PER UNIT CHARGE SC SCH ×4 (08:48→21:22)
[2022-08-07] MEDS: HEPARIN SOD 5,000 UNIT/0.5 ML VIAL SQ SCH ×2 (08:49→21:22)
[2022-08-07] MEDS ORDERED: LANTUS PER UNIT CHARGE SC SCH (09:00)
[2022-08-07 09:03] LABS: Hematocrit (blood only) 40.9 % (42.0-52.0); Mean Corpuscular Hemoglobin 30.4 pg (25.0-34.0); Mean Corpuscular Hgb Conc 34.2 g/dL (32.0-36.0); Mean Corpuscular Volume 88.7 fL (80.0-100.0); Mean Platelet Volume 10.7 fL (9.4-12.4); Platelet Count 158 K/uL (130-400); RDW Coefficient of Variation 12.9 % (11.5-14.5); RDW Standard Deviation 41.8 fL (36.4-46.3); Red Blood Count 4.61 M/uL (4.70-6.10); White Blood Count 7.59 K/ul (4.8-10.8)
[2022-08-07 09:19] LABS: BUN Creatinine Ratio 15.3 (10-20); Calcium 9.6 mg/dl (8.6-10.3); Creatinine Clr Calc Pharmacy 81.9 ml/min; Est GFR (African American) 77.5 ml/min; Est GFR (Non-African American) 66.9 ml/min; Potassium 3.9 mmol/L (3.5-5.1)
[2022-08-07] MEDS ORDERED: HYDROmorphone INJ 0.5 MG/0.5 ML SYR IV PRN (09:21)
--- NOTE | 2022-08-07 12:07 | Orthopedic Consultation ---
Date of Consultation August 07, 2022 Assessment & Plan (1) Intractable low back pain: Assessment nonunion L4-L5. Plan at this time his pain is controlled we are arranging an outpatient scheduling for surgery later this month. Patient understands agrees. He is safe to return home from an orthopedic standpoint. History of Present Illness Reason for Consultation: Back pain Attending Physician: Yecenia Galvez MD History of Present Illness This is a 52-year-old male presents last evening with worsening back pain. He states he was getting in his car after synagogue and had onset of pain. There is a component of sciatica associated with this pain. However this is not predominant in nature. He is recently seen in our office and is being scheduled for revision decompression fusion L4-L5. This morning his pain is controlled. He denies any radicular component to his symptoms. He states he is anxious to go home. Allergies Allergy/AdvReac Type Severity Reaction Status Date / Time Penicillins Allergy Intermediate HIVES Verified 08/07/22 00:07 morphine AdvReac Intermediate NAUSEA/VOMI Verified 08/07/22 00:07 TING Home Medications Medication Instructions Recorded Confirmed Type metformin 500 mg tablet 500 mg PO BID 04/18/22 08/07/22 History ondansetron HCl 4 mg tablet 4 mg PO TID PRN NAUSEA/VOMITING 04/18/22 08/07/22 History sofosbuvir 400 mg-velpatasvir 100 1 tab PO DAILY 06/12/22 08/07/22 History mg tablet Patient History Medical History Cervical radiculopathy Diabetes Shoulder pain Surgical History H/O wrist surgery Family History Mother Cancer Social History Smoking Status: Never smoker Second Hand Exposure: No; Do You Dip or Chew Tobacco: No; Hx Alcohol Use: No Hx Substance Use: Yes Last Used Substance: Hours (ago) Substance Use Type Other:: medical marijuana pt Preferred Language: Amharic Communication Ability: Effective Hearing Ability: Normal Battery Loader Required: No Beliefs That Will Affect Care: None marital status: Life Partner Current Living Situation: Significant Other Other Information That Helps Us Care for You: No Feels Safe at Home: Yes Safety Concerns: Feels Safe At This Time Assistive Devices: Brace/Splint/Immobilizer Assistive Devices Comment: back brace Physical Exam Physical Exam: Patient is alert and cooperative. He is distracted testing. Sensory symmetric and intact. Results & Data Vital Signs (Past 12 Hours) Vital Signs Temp Pulse Pulse Resp BP BP Pulse Ox 08/07/22 08:04 36.4 C L 54 L 18 149/93 H 96 08/07/22 07:29 08/07/22 05:17 76 141/85 H 08/07/22 03:43 36.4 C L 56 L 16 167/107 H 94 08/07/22 03:21 08/07/22 03:00 53 L 15 129/77 95 08/07/22 02:00 56 L 18 153/92 H 96 08/07/22 01:00 59 L 16 146/91 H 95 O2 Del Method 08/07/22 08:04 Room Air 08/07/22 07:29 Room Air 08/07/22 05:17 08/07/22 03:43 Room Air 08/07/22 03:21 Room Air 08/07/22 03:00 Room Air 08/07/22 02:00 Room Air 08/07/22 01:00 Room Air
[2022-08-07] MEDS: oxyCODONE HCL IR 5 MG TAB (IMMEDIATE RELEASE) PO PRN (13:53)
--- NOTE | 2022-08-07 15:14 | Pharmacy Report ---
Pharmacy Glycemic Short Note 2 - Date of Service August 07, 2022 - Glycemic Short BSG Results (Last 24 hours): 08/07/22 08/07/22 08/07/22 07:46 08:13 12:08 Glucose 155 H POC Glucose 150 H 89 OUTPATIENT ANTIDIABETIC REGIMEN: * metformin 500 mg BIDM (stopped due to side effects) ASSESSMENT: * Mr Deleon is a 52 y/o M with a PMH of T2DM who presents with exacerbation of lower back pain. * BSG on admission was 150 mg/dL. * Lantus 15 units SQ x 1 (half weight-based stress of 2). Scale for tomorrow morning based upon fasting BSG. * Novolog weight-based a 1-2. PLAN FOR INPATIENT GLYCEMIC CONTROL: * Hold outpatient oral diabetes medications * Basal insulin * Lantus 15 units SQ x 1 then 7-15 units SQ qAM * Bolus insulin * NovoLog per scale ACHS or Q6hrs while NPO * Goal Range: Low 110 mg/dL - High 140 mg/dL * Correction Factor: 40 mg/dL/unit * Nutritional / Prandial insulin per carb ratio of 1 unit per 12 grams CHO consumed
[2022-08-07] MEDS ORDERED: HYDROmorphone INJ 1 MG/ML SYRINGE IV STA (17:07)
[2022-08-07] MEDS: SOFOSBUVIR/VELPATASVIR 400mg/100mg TAB PO SCH (19:52)
[2022-08-07] MEDS: ONDANSETRON INJ 2 MG/ML 2 ML VIAL IV PRN (21:22)
[2022-08-07] MEDS: HYDROmorphone INJ 0.5 MG/0.5 ML SYR IV PRN (22:11)
[2022-08-08] MEDS: HYDROmorphone INJ 0.5 MG/0.5 ML SYR IV PRN ×5 (02:07→21:15)
[2022-08-08] MEDS: ONDANSETRON INJ 2 MG/ML 2 ML VIAL IV PRN ×6 (02:07→23:59)
[2022-08-08] MEDS: HEPARIN SOD 5,000 UNIT/0.5 ML VIAL SQ SCH ×2 (08:07→20:11)
[2022-08-08 08:47] LABS: Estimated Average Glucose 169 mg/dl; Hemoglobin A1C 7.5 % (4.5-5.6)
[2022-08-08] MEDS: INSULIN ASPART PER UNIT CHARGE SC SCH ×4 (09:20→20:10)
[2022-08-08] MEDS: LANTUS PER UNIT CHARGE SC SCH (09:21)
[2022-08-08] MEDS: oxyCODONE HCL IR 5 MG TAB (IMMEDIATE RELEASE) PO PRN ×4 (09:24→23:59)
[2022-08-08] MEDS: ACETAMINOPHEN 500 MG TAB PO PRN (12:07)
[2022-08-08] MEDS: KETOROLAC TROMETHAMINE 15 MG/ML VIAL IV PRN ×2 (12:08→19:32)
--- NOTE | 2022-08-08 13:32 | Hospitalist Progress Note ---
Date of Service August 08, 2022 Assessment & Plan (1) Cauda equina syndrome: (2) Acute exacerbation of chronic low back pain: (3) Lumbar radiculopathy: (4) Diabetes: (5) Chronic hepatitis C: Plan Bird is a 52 y/o M with PMHx of cauda equina syndrome and lumbar disc herniation with severe spinal stenosis/associated radiculopathy of L3-L4 and L4-L5 s/p lumbar decompression + spinal fusion (Dr. Malone 01/14/22) who presented with acute exacerbation of his pain. Lumbar radiculopathy, acute exacerbation of low back pain -Hx of cauda equina syndrome, s/p decompression and lumbar fusion (01/2022) -CT lumbar spine: No acute lumbar spine fracture, posterior lumbar fusion L3-L5, mild lucency along the bilateral L5 pedicle screws, concerning for minimal loosening. -Ortho consulted (Dr. Malone): surgery scheduled for August 21 -Pain poorly controlled, notes the Dilaudid helps him sleep but nausea wakes him up -Receiving Tylenol, Toradol, Oxycodone, Dilaudid -PRN Zofran q4h -Will add Flexeril this afternoon Diabetes mellitus, non-insulin dependent -HgbA1C 7.5% on admission -certified diabetes educator met with patient, notes he stopped taking home Metformin back in June due to GI side effects -Consider restarting Metformin (extended release form) on discharge for hopefully better tolerance Chronic Hepatitis C Sofosbuvir/velpatasvir 400/100 mg tablet PO q24hr FENGI: heart healthy/carb consistent DVT ppx: Heparin 5,000 units SQ Q12 Dispo: med/surg Code Status: Full code Admission and Anticipated Discharge Date Admission Date: August 07, 2022 Supervising Physician Co-Signing Physician Notes Resident Physician Supervision Note: I independently interviewed and examined the patient and verified the treviño history and physical, reviewed labs and image studies and agree with resident findings and care plan. Subjective 08/08: Patient seen and examined at bedside. Patient states that he slept intermittently overnight after receiving pain medication. Notes that his nausea is ongoing, Zofran isn't providing significant relief. Denies any additional scrotal pain. Denies bowel/bladder incontinence, chest pain, or shortness of breath. Review of Systems 2 Review of Systems: As per above Physical Exam Constitutional: + acute distress and average body habitus Eyes: Anicteric sclerae ENMT: External ears and nose normal, moist mucous membranes Respiratory: normal respiratory effort, lungs clear to auscultation Cardiovascular: RRR, no murmur, no edema Gastrointestinal (Abdomen): Abdomen soft, nontender Musculoskeletal: Tenderness to light touch of lumbar region (R>L), ROM limited by significant pain. No obvious erythema or swelling. Skin: no rashes, warm and dry Neurologic: moves all extremities and awake Psychiatric: A+Ox3, euthymic affect Results & Data Results & Data Vital Signs (Past 12 Hours) Vital Signs Temp Pulse Resp BP Pulse Ox O2 Del Method 08/08/22 07:30 36.7 C 71 18 158/92 H 98 Room Air Resident Activity Tracking Resident Involvement: Resident Care Provided Care Provided: Adult Hospital Medicine
[2022-08-08] MEDS ORDERED: CYCLOBENZAPRINE HCL 10 MG TAB PO STA (15:17)
--- NOTE | 2022-08-08 15:58 | Electrocardiogram Report ---
Test Reason : Blood Pressure : / mmHG Vent. Rate : 055 BPM Atrial Rate : 055 BPM P-R Int : 144 ms QRS Dur : 092 ms QT Int : 426 ms P-R-T Axes : 053 077 061 degrees QTc Int : 407 ms Sinus bradycardia Otherwise normal ECG When compared with ECG of 18-APR-2022 18:40, No significant change was found Confirmed by Adan Samano ([id number]) on 08/08/2022 3:57:53 PM Referred By: REFERRED SELF Confirmed By:Paras Samano
[2022-08-08] MEDS: LACTATED RINGER'S 1,000 ML IV SCH (17:24)
[2022-08-08] MEDS: SOFOSBUVIR/VELPATASVIR 400mg/100mg TAB PO SCH (19:32)
[2022-08-08] MEDS: CYCLOBENZAPRINE HCL 10 MG TAB PO SCH (20:12)
[2022-08-09] MEDS: HYDROmorphone INJ 0.5 MG/0.5 ML SYR IV PRN ×6 (01:08→23:19)
[2022-08-09] MEDS: ACETAMINOPHEN 500 MG TAB PO PRN ×2 (02:22→07:46)
[2022-08-09] MEDS: KETOROLAC TROMETHAMINE 15 MG/ML VIAL IV PRN ×3 (02:22→21:45)
[2022-08-09] MEDS: LACTATED RINGER'S 1,000 ML IV SCH ×2 (02:24→12:38)
[2022-08-09] MEDS: ONDANSETRON INJ 2 MG/ML 2 ML VIAL IV PRN (05:21)
[2022-08-09] MEDS: oxyCODONE HCL IR 5 MG TAB (IMMEDIATE RELEASE) PO PRN ×4 (05:21→21:45)
--- NOTE | 2022-08-09 07:33 | Hospitalist Progress Note ---
Date of Service August 09, 2022 Assessment & Plan (1) Cauda equina syndrome: (2) Acute exacerbation of chronic low back pain: (3) Lumbar radiculopathy: (4) Diabetes: (5) Chronic hepatitis C: Plan Bird is a 52 y/o M with PMHx of cauda equina syndrome and lumbar disc herniation with severe spinal stenosis/associated radiculopathy of L3-L4 and L4-L5 s/p lumbar decompression + spinal fusion (Dr. Malone 01/14/22) who presented with acute exacerbation of his pain. Lumbar radiculopathy, acute exacerbation of low back pain -Hx of cauda equina syndrome, s/p decompression and lumbar fusion (01/2022) -CT lumbar spine: No acute lumbar spine fracture, posterior lumbar fusion L3-L5, mild lucency along the bilateral L5 pedicle screws, concerning for minimal loosening. -Ortho consulted (Dr. Maloen): Planned to keep the scheduled date for surgery on August 21 -Pain poorly controlled, notes the Dilaudid helps but only for a short time. Will increase frequency to q3h. Increased oxycodone to 10mg. -Receiving Tylenol, Toradol, Oxycodone, Dilaudid, Flexeril. -PRN Zofran q4h -Due to significant pain without adequate pain control, reached out to Dr Malone today - ordered lumbar spine MRI (results pending) and pt NPO at midnight Diabetes mellitus, non-insulin dependent -HgbA1C 7.5% on admission -adult educator met with patient, notes he stopped taking home Metformin back in June due to GI side effects -Consider restarting Metformin (extended release form) on discharge for hopefully better tolerance Chronic Hepatitis C Sofosbuvir/velpatasvir 400/100 mg tablet PO q24hr FENGI: heart healthy/carb consistent. NPO at midnight DVT ppx: Heparin 5,000 units SQ Q12 Dispo: med/surg Code Status: Full code Admission and Anticipated Discharge Date Admission Date: August 08, 2022 Supervising Physician Co-Signing Physician Notes Resident Physician Supervision Note: I independently interviewed and examined the patient and verified the treviño history and physical, reviewed labs and image studies and agree with resident findings and care plan. Subjective 6/4: No acute events overnight. Nausea has improved but pain is unchanged. Notes that the Flexeril helps with some of the muscle spasms but not pain. Has been eating and drinking but doesn't have much of an appetite. Denies chest pain, shortness of breath, bowel/bladder incontinence. Review of Systems Review of Systems: As per above Physical Exam Constitutional: + acute distress and average body habitus Eyes: Anicteric sclerae. Respiratory: normal respiratory effort, lungs clear to auscultation Cardiovascular: RRR, no murmur, no edema Gastrointestinal (Abdomen): Soft, nontender, nondistende Musculoskeletal: Moves all limbs independently, pain at lumbar region R>L Skin: no rashes, warm and dry Neurologic: moves all extremities and awake Psychiatric: A+Ox3, euthymic affect Results & Data Results & Data Vital Signs (Past 12 Hours) Vital Signs Temp Pulse Resp BP Pulse Ox O2 Del Method 08/08/22 22:49 36.7 C 60 18 151/86 H 96 Room Air Resident Activity Tracking Resident Involvement: Resident Care Provided Care Provided: Adult Hospital Medicine
[2022-08-09] MEDS: CYCLOBENZAPRINE HCL 10 MG TAB PO SCH ×3 (07:46→21:11)
[2022-08-09] MEDS: HEPARIN SOD 5,000 UNIT/0.5 ML VIAL SQ SCH ×2 (07:48→21:21)
[2022-08-09] MEDS: LANTUS PER UNIT CHARGE SC SCH (08:55)
[2022-08-09] MEDS: INSULIN ASPART PER UNIT CHARGE SC SCH ×4 (08:55→21:22)
[2022-08-09] MEDS ORDERED: ACETAMINOPHEN 500 MG TAB PO SCH (11:00)
[2022-08-09] MEDS: ACETAMINOPHEN 500 MG TAB PO SCH ×2 (14:26→21:10)
[2022-08-09] MEDS: SOFOSBUVIR/VELPATASVIR 400mg/100mg TAB PO SCH (19:47)
--- NOTE | 2022-08-09 19:55 | Magnetic Resonance Report ---
MR lumbar spine wo con CLINICAL HISTORY: 52 years-old Male with back and leg pain. Chronic low back pain with prior surgery COMPARISON: CT lumbar spine 08/07/2022, MRI lumbar spine 01/13/2022. TECHNIQUE: Multiplanar, multi sequence MRI of the lumbar spine was performed without intravenous cont rast. FINDINGS: Posterior interbody gabby and screw fusion hardware discectomy redemonstrated at L3-L5. No acute fractu re, subluxation, endplate erosion or epidural collections. No acute intra-abdominal abnormality. Conu s medullaris terminates at L1. Signal within the imaged thoracic spinal cord and cauda equina is with in normal limits. T12-L1: No central canal or neural foraminal stenosis. Unchanged. L1-L2: No central canal or neural foraminal stenosis. Unchanged. L2-L3: Ligamentum flavum thickening with moderate facet arthrosis contributes to cause mild bilatera l foraminal narrowing. The central canal is patent. L3-L4: Posterior interbody gabby and screw fusion with discectomy. The central canal is patent. Artifa ct from the hardware limits evaluation of the neural foramina. There is suggestion of mild right grea ter than left foraminal narrowing which appears stable. L4-L5: Posterior and bilateral gabby and screw fusion with discectomy. Flattening of the ventral theca l sac is unchanged. The central canal is patent. Artifact from the hardware limits evaluation of the neural foramina. Moderate bilateral foraminal narrowing is similar to prior. L5-S1: Ligament of flavum thickening with moderate facet arthrosis. No central canal stenosis or lani ral foraminal narrowing. Unchanged. IMPRESSION: 1. No acute fracture or subluxation. 2. Posterior interbody gabby and screw fusion with discectomy redemonstrated at L3-L5. There is evidenc e of L5 pedicle screw loosening on the CT exam from 08/07/2022. 3. Neural foraminal narrowing L3-L4 and L4-L5 as above. 4. No significant central canal stenosis. ACT 112: Negative or not required by law. The above report was generated using voice recognition software. It may contain grammatical, syntax o r spelling errors. Electronically signed by: Renzo Verdugo M.D. 08/09/2022 7:54 PM
[2022-08-10] MEDS: LACTATED RINGER'S 1,000 ML IV SCH ×3 (00:54→19:26)
[2022-08-10] MEDS: HYDROmorphone INJ 0.5 MG/0.5 ML SYR IV PRN ×5 (03:30→23:24)
[2022-08-10] MEDS: oxyCODONE HCL IR 5 MG TAB (IMMEDIATE RELEASE) PO PRN ×3 (05:43→22:22)
[2022-08-10] MEDS: ACETAMINOPHEN 500 MG TAB PO SCH ×3 (06:27→21:18)
[2022-08-10] MEDS: INSULIN ASPART PER UNIT CHARGE SC SCH ×4 (07:14→20:48)
[2022-08-10] MEDS: HEPARIN SOD 5,000 UNIT/0.5 ML VIAL SQ SCH ×2 (07:18→20:11)
--- NOTE | 2022-08-10 07:27 | Hospitalist Progress Note ---
Date of Service August 10, 2022 Assessment & Plan (1) Cauda equina syndrome: (2) Acute exacerbation of chronic low back pain: (3) Lumbar radiculopathy: (4) Diabetes: (5) Chronic hepatitis C: Plan Bird is a 52 y/o M with PMHx of cauda equina syndrome and lumbar disc herniation with severe spinal stenosis/associated radiculopathy of L3-L4 and L4-L5 s/p lumbar decompression + spinal fusion (Dr. Malone 01/14/22) who presented with acute exacerbation of his pain. #history of cauda equina syndrome #acute exacerbation of low back pain #lumbar radiculopathy -Hx of cauda equina syndrome, s/p decompression and lumbar fusion (01/2022) -CT lumbar spine: No acute lumbar spine fracture, posterior lumbar fusion L3-L5, mild lucency along the bilateral L5 pedicle screws, concerning for minimal loosening. -Lumbar spine MRI 08/09/22: no acute fracture or subluxation, L5 pedicle screw loosening compared to CT from 08/07/22, neural foraminal narrowing L3-L4 and L4- L5, no significant central canal stenosis Consider vitamin D level, DEXA scan, as osteoporosis may explain suboptimal healing -Ortho consulted (Dr. Malone): will aim for surgery on 08/11/22 if insurance approval allows -Receiving Tylenol 1,000mg po q8hr, Toradol 15mg IV q6hr PRN, Oxycodone 10mg PO q4hr, Dilaudid 1.0 mg IV q3hr PRN, Flexeril 10mg PO tid -Do not continue this dose of Tylenol as outpatient per discussion with [facility] -PRN Zofran q4h -Due to significant pain without adequate pain control, reached out to Dr Malone today -PT/OT consulted #diabetes mellitus, non-insulin dependent -HgbA1C 7.5% on admission. Neuropathy both feet. -Sliding scale insulin -ict educator met with patient, notes he stopped taking home Metformin back in June due to GI side effects -Consider restarting Metformin (extended release form) on discharge for hopefully better tolerance #chronic hepatitis C Sofosbuvir/velpatasvir 400/100 mg tablet PO q24hr FENGI: heart healthy/carb consistent, NPO at midnight DVT ppx: heparin 5,000 units SQ Q12 Dispo: med/surg Full code Admission and Anticipated Discharge Date Admission Date: August 08, 2022 Supervising Physician Co-Signing Physician Notes I personally examined the patient and verified all treviño points of history and exam, discussed case, and agree with decision making with Silvia Foote MS4 Ongoing back pain pelvic pain and leg pain. For surgery tomorrow. Discussed the possibility of biomechanical pain as welland once he has had a chance for postop healing, if he continues to have localized pain in his back, how a trial of OMT could be beneficial. Obviously right now his pain is predominantly surgical. Vitals noted, in general he is awake and alert but appears uncomfortable. Breathing unlabored no accessory muscle use good effort. Skin shows no rashes no pallor or icterus. BMP, lumbar spine MRI noted. Spinal disease with intractable painfor surgery tomorrow. Otherwise as above. He was in significant pain, and as I went to revise his medication list, I noted that several of his as needed's he had not been gettingasked for a stat dose of Toradol. Subjective Bird still has breakthrough pain despite changes to his pain regimen. He gets 1.5-2 hours of sleep then awakens in pain that's particularly worse with movement. He can't seem to find a comfortable position. He does not have any bowel/bladder incontinence, fevers, chills, numbness or tingling in the genital region. No chest pain, SOB or sputum production. Review of Systems Review of Systems: All systems reviewed & are unremarkable except as noted in HPI & below Physical Exam Physical Exam: Appearance: uncomfortable, lying supine in bed, NAD. Respiratory: anterior/lateral lung lopez CTA BL without rales/rhonchi/wheeze Cardiovascular: RRR, no M/R/G, no cyanosis, no LE edema BL. Gastrointestinal (Abdomen): active bowel sounds, no pain/rebound/guarding to palpation Musculoskeletal: +dorsiflexion elicits lower back pain bilaterally, R worse than left Hip flexion limited by pain Lymphatic: LE are symmetric in size/color. No calf pain to palpation BL Results & Data Results & Data Vital Signs (Past 12 Hours) Vital Signs Temp Pulse Resp BP Pulse Ox O2 Del Method 08/10/22 07:00 36.4 C L 60 17 167/82 H 96 Room Air 08/09/22 21:02 36.7 C 60 17 164/88 H 96 Room Air Laboratory Results 08/10/22 08/10/22 08/09/22 07:38 06:53 20:46 Sodium 140 Potassium 3.8 Chloride 106 Carbon Dioxide 29 Anion Gap 5 BUN 11 Creatinine 1.05 Est Cr Clr Drug Dosing 96.8 Est GFR ( Amer) 94.8 Est GFR (Non-Af Amer) 81.8 BUN/Creatinine Ratio 10.5 Glucose 84 POC Glucose 86 96 Calcium 9.1 08/09/22 08/09/22 17:13 12:13 Sodium Potassium Chloride Carbon Dioxide Anion Gap BUN Creatinine Est Cr Clr Drug Dosing Est GFR ( Amer) Est GFR (Non-Af Amer) BUN/Creatinine Ratio Glucose POC Glucose 90 126 H Calcium Diagnostic Findings Laboratory Results WBC 7.59 K/ul (4.8-10.8) 08/07/22 07:46 RBC 4.61 M/uL (4.70-6.10) L 08/07/22 07:46 Hgb 14.0 g/dl (14.0-18.0) 08/07/22 07:46 Hct 40.9 % (42.0-52.0) L 08/07/22 07:46 MCV 88.7 fL (80.0-100.0) 08/07/22 07:46 MCH 30.4 pg (25.0-34.0) 08/07/22 07:46 MCHC 34.2 g/dL (32.0-36.0) 08/07/22 07:46 RDW Std Deviation 41.8 fL (36.4-46.3) 08/07/22 07:46 RDW Coeff of Tulio 12.9 % (11.5-14.5) 08/07/22 07:46 Plt Count 158 K/uL (130-400) 08/07/22 07:46 MPV 10.7 fL (9.4-12.4) 08/07/22 07:46 Sodium 140 mmol/L (136-145) 08/10/22 07:38 Potassium 3.8 mmol/L (3.5-5.1) 08/10/22 07:38 Chloride 106 mmol/L (98-107) 08/10/22 07:38 Carbon Dioxide 29 mmol/L (21-32) 08/10/22 07:38 Anion Gap 5 (3-11) 08/10/22 07:38 BUN 11 mg/dl (6-23) 08/10/22 07:38 Creatinine 1.05 mg/dl (0.6-1.4) 08/10/22 07:38 Est Cr Clr Drug Dosing 96.8 ml/min 08/10/22 07:38 Est GFR ( Amer) 94.8 ml/min 08/10/22 07:38 Est GFR (Non-Af Amer) 81.8 ml/min 08/10/22 07:38 BUN/Creatinine Ratio 10.5 (10-20) 08/10/22 07:38 Glucose 84 mg/dl (70-99(Fasting)) 08/10/22 07:38 POC Glucose 86 mg/dl (70-99) 08/10/22 06:53 Estimat Average Glucose 169 mg/dl 08/08/22 06:13 Hemoglobin A1c 7.5 % (4.5-5.6) H 08/08/22 06:13 Calcium 9.1 mg/dl (8.6-10.3) 08/10/22 07:38 SARS-CoV-2, RNA, NAAT NEGATIVE (NEGATIVE) 08/07/22 01:[address] 08/06/22 23:45 Exam(s): CT L SPINE EXAM: CT Lumbar Spine Without Intravenous Contrast CLINICAL HISTORY: Reason for exam: pain, eval hardware. TECHNIQUE: Axial computed tomography images of the lumbar spine without intravenous contrast. CTDI is 39.4 mGy and DLP is 1291.25 mGy-cm. Automated exposure control was utilized for the study. A dose lowering technique was utilized adhering to the principles of ALARA. COMPARISON: No relevant prior studies available. FINDINGS: The vertebral body heights are maintained. The lumbar lordosis is preserved. There is no spondylolisthesis. The posterior elements are maintained, without evidence of acute fracture. The pedicles are intact. Posterior lumbar fusion L3, L4, and L5. Paired screws in the parallel spinal stabilization rods. Mild lucency along the bilateral L5 pedicle screws, concerning for minimal loosening. Posterior decompression at L3 and L4. Bone graft material. Multilevel lumbar spondylosis and degenerative disc disease. IMPRESSION: No acute lumbar spine fracture. Posterior lumbar fusion L3-L5. Mild lucency along the bilateral L5 pedicle screws, concerning for minimal loosening. Electronically signed by: Nato Sanchez MD 08/07/22 00:30 AM Lumbar Spine MRI 08/09/22 11:07 MR lumbar spine wo con CLINICAL HISTORY: 52 years-old Male with back and leg pain. Chronic low back pain with prior surgery COMPARISON: CT lumbar spine 08/07/2022, MRI lumbar spine 01/13/2022. TECHNIQUE: Multiplanar, multi sequence MRI of the lumbar spine was performed without intravenous contrast. FINDINGS: Posterior interbody gabby and screw fusion hardware discectomy redemonstrated at L3-L5. No acute fracture, subluxation, endplate erosion or epidural collections. No acute intra-abdominal abnormality. Conus medullaris terminates at L1. Signal within the imaged thoracic spinal cord and cauda equina is within normal limits. T12-L1: No central canal or neural foraminal stenosis. Unchanged. L1-L2: No central canal or neural foraminal stenosis. Unchanged. L2-L3: Ligamentum flavum thickening with moderate facet arthrosis contributes to cause mild bilateral foraminal narrowing. The central canal is patent. L3-L4: Posterior interbody gabby and screw fusion with discectomy. The central canal is patent. Artifact from the hardware limits evaluation of the neural foramina. There is suggestion of mild right greater than left foraminal narrowing which appears stable. L4-L5: Posterior and bilateral gabby and screw fusion with discectomy. Flattening of the ventral thecal sac is unchanged. The central canal is patent. Artifact from the hardware limits evaluation of the neural foramina. Moderate bilateral foraminal narrowing is similar to prior. L5-S1: Ligament of flavum thickening with moderate facet arthrosis. No central canal stenosis or neural foraminal narrowing. Unchanged. IMPRESSION: 1. No acute fracture or subluxation. 2. Posterior interbody gabby and screw fusion with discectomy redemonstrated at L3-L5. There is evidence of L5 pedicle screw loosening on the CT exam from 08/07/2022. 3. Neural foraminal narrowing L3-L4 and L4-L5 as above. 4. No significant central canal stenosis. ACT 112: Negative or not required by law. The above report was generated using voice recognition software. It may contain grammatical, syntax or spelling errors. Electronically signed by: Renzo Verdugo M.D. 08/09/2022 7:54 PM
[2022-08-10 08:20] LABS: BUN Creatinine Ratio 10.5 (10-20); Calcium 9.1 mg/dl (8.6-10.3); Creatinine Clr Calc Pharmacy 96.8 ml/min; Est GFR (African American) 94.8 ml/min; Est GFR (Non-African American) 81.8 ml/min; Potassium 3.8 mmol/L (3.5-5.1)
[2022-08-10] MEDS: CYCLOBENZAPRINE HCL 10 MG TAB PO SCH ×3 (08:30→20:11)
[2022-08-10] MEDS: LANTUS PER UNIT CHARGE SC SCH (08:30)
[2022-08-10] MEDS: ONDANSETRON INJ 2 MG/ML 2 ML VIAL IV PRN (08:39)
[2022-08-10] MEDS ORDERED: Nursing to Pharmacy Communication SCH ×2 (09:30→09:45)
--- NOTE | 2022-08-10 09:46 | Orthopedic Progress Note ---
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 Plan at this time is as to decline over the past 8 weeks. He has significant pain with any motion. There is evidence of nonunion and marked inflammation on his CAT scan and MRI lumbar spine. I am recommending revision of the fusion at the L4-L5 level. Risk benefits pros cons alternatives were outlined in detail. Make him n.p.o. after midnight and plan for surgery tomorrow. Admission and Anticipated Discharge Date Admission Date: August 08, 2022 Subjective Patient continues to have severe back pain with inability to stand and ambulate any distance. He describes pain rating across his pelvis and down his legs with any motion even at rotation in bed. Physical Exam Physical Exam: On exam he is most comfortable supine. Is obvious distress with any motion. His regional strength testing lower extremities. Results & Data Vital Signs (Past 12 Hours) Vital Signs Temp Pulse Resp BP Pulse Ox O2 Del Method 08/10/22 07:00 36.4 C L 60 17 167/82 H 96 Room Air
[2022-08-10] MEDS: KETOROLAC TROMETHAMINE 15 MG/ML VIAL IV PRN ×2 (09:52→21:18)
[2022-08-10] MEDS ORDERED: HYDROmorphone INJ 0.5 MG/0.5 ML SYR IV PRN (10:39)
[2022-08-10] MEDS ORDERED: INSULIN ASPART PER UNIT CHARGE SC SCH (12:00)
[2022-08-10] MEDS ORDERED: KETOROLAC TROMETHAMINE 15 MG/ML VIAL IV ONE (13:08)
--- NOTE | 2022-08-10 16:04 | Billing Data ---
Date of Service August 10, 2022 Coding Level of Care Code 27619 SUB INP/OBS CARE MIN
[2022-08-10] MEDS: SOFOSBUVIR/VELPATASVIR 400mg/100mg TAB PO SCH (20:11)
[2022-08-11] MEDS: HYDROmorphone INJ 0.5 MG/0.5 ML SYR IV PRN ×5 (02:29→23:07)
[2022-08-11] MEDS: LACTATED RINGER'S 1,000 ML IV SCH ×2 (05:41→14:57)
[2022-08-11] MEDS: ACETAMINOPHEN 500 MG TAB PO SCH ×3 (06:00→23:10)
--- NOTE | 2022-08-11 07:21 | Hospitalist Progress Note ---
Date of Service August 11, 2022 Assessment & Plan (1) Cauda equina syndrome: (2) Acute exacerbation of chronic low back pain: (3) Lumbar radiculopathy: (4) Diabetes: (5) Chronic hepatitis C: Plan Bird is a 52 y/o M with PMHx of cauda equina syndrome and lumbar disc herniation with severe spinal stenosis/associated radiculopathy of L3-L4 and L4-L5 s/p lumbar decompression + spinal fusion (Dr. Malone 01/14/22) who presented with acute exacerbation of his pain. #history of cauda equina syndrome #acute exacerbation of low back pain #lumbar radiculopathy -Surgery with Dr. Malone scheduled for 08/11/22 due to evidence of nonunion L4-L5 + evidence of inflammation. Hx of cauda equina syndrome, s/p decompression and lumbar fusion (01/2022) CT lumbar spine: No acute lumbar spine fracture, posterior lumbar fusion L3- L5, mild lucency along the bilateral L5 pedicle screws, concerning for minimal loosening. Lumbar spine MRI 08/09/22: no acute fracture or subluxation, L5 pedicle screw loosening compared to CT from 08/07/22, neural foraminal narrowing L3-L4 and L4- L5, no significant central canal stenosis -Receiving Tylenol 1,000mg po q8hr, Toradol 15mg IV q6hr PRN, Oxycodone 10mg PO q4hr, Dilaudid 1.0 mg IV q3hr PRN, Flexeril 10mg PO tid -Do not continue this dose of Tylenol as outpatient per discussion with [facility] -PRN Zofran q4h -PT/OT consulted #diabetes mellitus, non-insulin dependent -HgbA1C 7.5% on admission. Neuropathy both feet. -Sliding scale insulin -binman met with patient, notes he stopped taking home Metformin back in June due to GI side effects -Consider restarting Metformin (extended release form) on discharge for hopefully better tolerance #chronic hepatitis C Sofosbuvir/velpatasvir 400/100 mg tablet PO q24hr FENGI: NPO in anticipation of surgery DVT ppx: heparin 5,000 units SQ Q12 Dispo: med/surg Full code Admission and Anticipated Discharge Date Admission Date: August 08, 2022 Supervising Physician Co-Signing Physician Notes I personally examined the patient and verified all treviño points of history and exam, discussed case, and agree with decision making with Silvia Foote MS4 4 OR today. Pain fairly uncontrolled. Had Toradol earlier not helping enoughordered additional Dilaudid. Vitals noted, in general he is awake and alert but appears uncomfortable. Even more so than yesterday. Breathing unlabored no accessory muscle use good effort. Skin shows no rashes no pallor or icterus. Spinal disease with intractable painfor surgery today. Continue as needed pain controlhopefully will improve significantly postop. Discussed yesterday that there is likely also a biomechanical component to his chronic pain, and if that is interfering with his daily life, trial of OMT would be quite reasonable as an outpatient. Subjective Bird is feeling a bit better which he mostly attributes to getting more sleep. While he still has breakthrough pain, he believes the adjusted pain regimen helped him sleep more. He is eager to proceed with his surgery. No fevers, chills or saddle anesthesia. He is urinating and passing stool without concerns. He had some concerns about taking his Lantus today which we discussed. Review of Systems Review of Systems: All systems reviewed & are unremarkable except as noted in HPI & below Physical Exam Physical Exam: Appearance: lying supine in bed, NAD Respiratory: anterior/lateral lung lopez CTA BL without rales/rhonchi/wheeze no conversational dyspnea no cyanosis Cardiovascular: normal S1, S2, regular rate and rhythm no LE edema Gastrointestinal (Abdomen): active bowel sounds no pain to palpation, rebound or guarding Musculoskeletal: +straight leg raise test, right worse than left Neurologic: AOx3, answering questions appropriately neuropathy in both feel, diminished sense of light touch Lymphatic: no pain to palpation, edema, erythema or warmth of LE BL Butch's sign negative Results & Data Results & Data Vital Signs (Past 12 Hours) Vital Signs Temp Pulse Resp BP BP Pulse Ox O2 Del Method 08/11/22 07:20 36.9 C 66 18 164/96 H 93 Room Air 08/10/22 20:09 36.6 C 66 18 150/82 H 96 Room Air
[2022-08-11] MEDS: INSULIN ASPART PER UNIT CHARGE SC SCH ×4 (07:22→20:56)
[2022-08-11] MEDS: HEPARIN SOD 5,000 UNIT/0.5 ML VIAL SQ SCH ×2 (07:29→20:42)
[2022-08-11] MEDS: GLUCOSE 10 TAB/TUBE PO PRN ×2 (07:36→11:54)
--- NOTE | 2022-08-11 08:22 | Anesthesiology Consultation ---
Date of Service August 11, 2022 Assessment & Plan Chart Review Chart Review: data entry processor initiated History Surgery Operation Date: 08/11/22 14:25 Proposed Procedures p Revision Decompression Fusion L4-L5 Spinal Cord Monitoring - Petr Malone DO Height/Weight Height: 6 ft 2 in Weight: 96.7 kg Allergies Allergy/AdvReac Type Severity Reaction Status Date / Time Penicillins Allergy Intermediate HIVES Verified 08/07/22 00:07 morphine AdvReac Intermediate NAUSEA/VOMI Verified 08/07/22 00:07 TING Medications Home Medications Medication Instructions Recorded Confirmed Last Taken metformin 500 mg tablet 500 mg PO BID 04/18/22 08/07/22 08/06/22 ondansetron HCl 4 mg tablet 4 mg PO TID PRN NAUSEA/VOMITING 04/18/22 08/07/22 08/06/22 sofosbuvir 400 mg-velpatasvir 100 1 tab PO DAILY 06/12/22 08/07/22 08/06/22 mg tablet Active Medications Generic Name Dose Route Start Last Admin Trade Name Freq PRN Reason Stop Dose Admin Acetaminophen 1,000 mg 08/09/22 14:00 08/11/22 06:00 Acetaminophen 500 Mg Tab PO 09/08/22 13:59 1,000 mg Q8H NARENDRA Administration Cyclobenzaprine HCl 10 mg 08/08/22 21:00 08/10/22 20:11 Cyclobenzaprine Hcl 10 Mg Tab PO 09/07/22 20:59 10 mg TID NARENDRA Administration Glucose 4 - 8 tab 08/07/22 07:41 08/11/22 07:36 Glucose 10 Tab/Tube PO 09/06/22 07:40 4 tab UD PRN Administration Hypoglycemia Treatment Protocol Heparin Sodium (Porcine) 5,000 units 08/07/22 09:00 08/11/22 07:29 Heparin Sod 5,000 Unit/0.5 Ml Vial SQ 09/06/22 08:59 Not Given Q12 NARENDRA Hydromorphone HCl 1 mg 08/10/22 10:41 08/11/22 07:09 Hydromorphone Inj 0.5 Mg/0.5 Ml Syr IV 08/21/22 17:06 1 mg Q3H PRN Administration Severe (7+/10) pain Lactated Ringer's 1,000 mls @ 100 mls/hr 08/08/22 17:15 08/11/22 05:41 Lr IV 09/07/22 17:14 100 mls/hr .Q10H NARENDRA Administration Insulin Aspart 0 units 08/10/22 11:30 08/11/22 07:22 Insulin Aspart Per Unit Charge SC 09/09/22 11:29 Not Given ACHS NARENDRA Insulin Glargine 5 units 08/10/22 09:00 08/10/22 08:30 Lantus Per Unit Charge SC 09/09/22 08:59 5 units QAM NARENDRA Administration Ketorolac Tromethamine 15 mg 08/10/22 10:39 08/10/22 21:18 Ketorolac Tromethamine 15 Mg/Ml Vial IV 08/12/22 04:13 15 mg Q6H PRN Administration Moderate (3+/10) pain Ondansetron HCl 4 mg 08/07/22 17:38 08/10/22 08:39 Ondansetron Inj 2 Mg/Ml 2 Ml Vial IV 09/06/22 17:37 4 mg Q4H PRN Administration Nausea Oxycodone HCl 10 mg 08/10/22 10:39 08/10/22 22:22 Oxycodone Hcl Ir 5 Mg Tab (Immediate Release) PO 08/21/22 14:15 10 mg Q4H PRN Administration Moderate (5+/10) pain Sofosbuvir/Velpatasvir 1 tab 08/07/22 20:00 08/10/22 20:11 Sofosbuvir/Velpatasvir 400mg/100mg Tab PO 09/06/22 19:59 1 tab Q24H NARENDRA Administration Past Medical History Medical History Cervical radiculopathy Diabetes Shoulder pain Past Family History Family History Mother Cancer Past Surgical History Surgical History H/O wrist surgery Social History Smoking Status: Never smoker tobacco type: smokeless tobacco Do You Dip or Chew Tobacco: No Hx Alcohol Use: No Hx Substance Use: Yes substance use type: marijuana and prescription drug Substance Use Type Other:: medical marijuana pt Last Used Substance: Hours (ago) Physical Exam Vital Signs Last Vital Signs Temp 98.4 F 08/11/22 07:20 Pulse 66 08/11/22 07:20 Resp 18 08/11/22 07:20 BP 164/96 H 08/11/22 07:20 Pulse Ox 93 08/11/22 07:20 O2 Del Method Room Air 08/11/22 07:20 Testing Laboratory Results 08/07/22 07:46 08/10/22 07:38 Hemoglobin A1c 7.5 % (4.5-5.6) H 08/08/22 06:13 08/11/22 08/11/22 08/10/22 08:04 06:55 20:46 POC Glucose 91 70 90 Electrocardiogram Date: 08/08/22 Sinus bradycardia, rate 55 bpm Otherwise normal ECG When compared with ECG of 18-APR-2022 18:40, No significant change was found Confirmed by Adan Saamno ([id number]) on 08/08/2022 3:57:53 PM
[2022-08-11] MEDS: CYCLOBENZAPRINE HCL 10 MG TAB PO SCH ×3 (08:53→20:42)
[2022-08-11] MEDS: oxyCODONE HCL IR 5 MG TAB (IMMEDIATE RELEASE) PO PRN ×3 (08:53→20:41)
[2022-08-11] MEDS: LANTUS PER UNIT CHARGE SC SCH (09:13)
[2022-08-11] MEDS: KETOROLAC TROMETHAMINE 15 MG/ML VIAL IV PRN (12:16)
[2022-08-11] MEDS ORDERED: HYDROmorphone INJ 1 MG/ML SYRINGE IV STA (12:23)
--- NOTE | 2022-08-11 13:31 | Pharmacy Report ---
Pharmacy Glycemic Short Note 2 - Date of Service August 11, 2022 - Glycemic Short BSG Results (Last 24 hours): 08/10/22 08/10/22 08/11/22 17:07 20:46 06:55 POC Glucose 100 H 90 70 08/11/22 08/11/22 08/11/22 08:04 09:49 11:43 POC Glucose 91 93 78 08/11/22 12:12 POC Glucose 80 OUTPATIENT ANTIDIABETIC REGIMEN: * N/A * Metformin 500 mg BIDM stopped d/t side effects * HbA1c: 7.5% (08/08/22) ASSESSMENT: 08/11/22 * BSGs have been consistently below goal range on as little as 5 units of insulin per day. * Lantus will be held starting tomorrow. Carb coverage removed from Novolog parameters (though pt is NPO currently for OR later today). * If patient's BSGs start to trend up as diet advances post-op, will evaluate the need to resume Lantus/prandial coverage. 08/07 * Mr Deleon is a 52 y/o M with a PMH of T2DM who presents with exacerbation of lower back pain. * BSG on admission was 150 mg/dL. * Lantus 15 units SQ x 1 (half weight-based stress of 2). Scale for tomorrow morning based upon fasting BSG. * Novolog weight-based a 1-2. PLAN FOR INPATIENT GLYCEMIC CONTROL: * Hold outpatient oral diabetes medications * Basal insulin * 5 units SQ this morning * stop Lantus moving forward * Bolus insulin * NovoLog per scale ACHS or Q6hrs while NPO * Goal Range: Low 110 mg/dL - High 140 mg/dL * Correction Factor: 40 mg/dL/unit * Nutritional / Prandial insulin: none at this time
--- NOTE | 2022-08-11 19:45 | Billing Data ---
Date of Service August 11, 2022 Coding Level of Care Code 71676 SUB INP/OBS CARE MIN
--- NOTE | 2022-08-11 19:46 | Billing Data ---
Date of Service August 11, 2022 Coding Level of Care Code 52871 SUB INP/OBS CARE MIN
[2022-08-11] MEDS: SOFOSBUVIR/VELPATASVIR 400mg/100mg TAB PO SCH (20:42)
[2022-08-11] MEDS: ONDANSETRON INJ 2 MG/ML 2 ML VIAL IV PRN (21:04)
[2022-08-11] MEDS ORDERED: PROCHLORPERAZINE 10 MG in SYRINGE 8 ML IV ONE (22:35)
[2022-08-12] MEDS ORDERED: Nursing to Pharmacy Communication SCH (00:30)
[2022-08-12] MEDS: LACTATED RINGER'S 1,000 ML IV SCH ×3 (01:06→17:23)
[2022-08-12] MEDS: KETOROLAC TROMETHAMINE 15 MG/ML VIAL IV PRN (01:18)
[2022-08-12] MEDS: HYDROmorphone INJ 0.5 MG/0.5 ML SYR IV PRN ×3 (04:53→11:04)
[2022-08-12] MEDS: ACETAMINOPHEN 500 MG TAB PO SCH ×2 (06:10→15:30)
[2022-08-12] MEDS: INSULIN ASPART PER UNIT CHARGE SC SCH ×3 (06:11→21:31)
[2022-08-12] MEDS: HEPARIN SOD 5,000 UNIT/0.5 ML VIAL SQ SCH (07:22)
--- NOTE | 2022-08-12 08:04 | Hospitalist Progress Note ---
Date of Service August 12, 2022 Assessment & Plan (1) Cauda equina syndrome: (2) Acute exacerbation of chronic low back pain: (3) Lumbar radiculopathy: (4) Diabetes: (5) Chronic hepatitis C: Plan Bird is a 52 y/o M with PMHx of cauda equina syndrome and lumbar disc herniation with severe spinal stenosis/associated radiculopathy of L3-L4 and L4-L5 s/p lumbar decompression + spinal fusion (Dr. Malone 01/14/22) who presented with acute exacerbation of his pain. #history of cauda equina syndrome #acute exacerbation of low back pain #lumbar radiculopathy -Surgery with Dr. Malone scheduled for 08/12/22 due to evidence of nonunion L4-L5 + evidence of inflammation. Hx of cauda equina syndrome, s/p decompression and lumbar fusion (01/2022) CT lumbar spine: No acute lumbar spine fracture, posterior lumbar fusion L3- L5, mild lucency along the bilateral L5 pedicle screws, concerning for minimal loosening. Lumbar spine MRI 08/09/22: no acute fracture or subluxation, L5 pedicle screw loosening compared to CT from 08/07/22, neural foraminal narrowing L3-L4 and L4- L5, no significant central canal stenosis -Receiving Tylenol 1,000mg po q8hr, Toradol 15mg IV q6hr PRN, Oxycodone 10mg PO q4hr, Dilaudid 1.0 mg IV q3hr PRN, Flexeril 10mg PO tid -Do not continue this dose of Tylenol as outpatient per discussion with [facility] -PRN Zofran q4h -PT/OT #diabetes mellitus, non-insulin dependent -HgbA1C 7.5% on admission. Neuropathy both feet. -Sliding scale insulin -para educator met with patient, notes he stopped taking home Metformin back in June due to GI side effects -Consider restarting Metformin (extended release form) on discharge for hopefully better tolerance #chronic hepatitis C -Sofosbuvir/velpatasvir 400/100 mg tablet PO q24hr -Do not continue high-dose Tylenol after discharge FENGI: NPO in anticipation of surgery DVT ppx: heparin 5,000 units SQ Q12 Dispo: med/surg, anticipating discharge home after surgery Full code Admission and Anticipated Discharge Date Admission Date: August 08, 2022 Supervising Physician Co-Signing Physician Notes I personally examined the patient and verified all treviño points of history and exam, discussed case, and agree with decision making with Silvia Foote MS4 for OR today. Pain still fairly uncontrolled. OR this afternoon. Vitals noted, in general he is awake and alert but appears uncomfortable. Even more so than yesterday. Breathing unlabored no accessory muscle use good effort. Skin shows no rashes no pallor or icterus. Spinal disease with intractable painfor surgery today. pain control, PT/OT post op Subjective Overnight Bird had several episodes of non-bilious, non-bloody vomiting. He attributes this to eating dinner after being NPO most of yesterday in combination with taking oxycodone. Otherwise the nature of his back pain has not changed. Finding a comfortable position is difficult. He still has the sensation that some of the hardware in his back is mobile. He is eager to proceed with surgery. Urinating and passing stool without issues. No fevers, chills, dysuria, chest pain, palpitations, cough or SOB. Review of Systems Review of Systems: All systems reviewed & are unremarkable except as noted in HPI & below Physical Exam Physical Exam: Appearance: fatigued, lying supine in hospital bed Respiratory: Normal respiratory effort, no accessory muscle use, no conversational dyspnea Lungs CTA BL without crackles or wheeze Cardiovascular: Normal S1, S2, no appreciable murmurs Extremities warm, well-perfused. No cyanosis No lower extremity edema or abdominal distention Gastrointestinal (Abdomen): Active bowel sounds No pain/rebound/guarding to palpation Neurologic: Alert, answering questions appropriately +Straight leg raise elicits lower back pain, right worse than left Sensation to gross touch intact in legs bilaterally Diminished sensation to gross touch in both feet Lymphatic: Lower extremities BL: symmetrical, no edema or erythema Results & Data Results & Data Vital Signs (Past 12 Hours) Vital Signs Temp Pulse Resp BP BP Pulse Ox O2 Del Method 08/12/22 07:59 36.6 C 75 18 169/90 H 95 Room Air 08/12/22 01:08 160/88 H 08/11/22 21:30 37.1 C 68 18 95 Room Air
[2022-08-12] MEDS: CYCLOBENZAPRINE HCL 10 MG TAB PO SCH ×3 (08:17→21:25)
[2022-08-12] MEDS: ONDANSETRON INJ 2 MG/ML 2 ML VIAL IV PRN (08:17)
[2022-08-12 09:42] LABS: Hematocrit (blood only) 40.1 % (42.0-52.0); Hemoglobin 13.8 g/dl (14.0-18.0); Mean Corpuscular Hemoglobin 30.1 pg (25.0-34.0); Mean Corpuscular Hgb Conc 34.4 g/dL (32.0-36.0); Mean Corpuscular Volume 87.4 fL (80.0-100.0); Mean Platelet Volume 10.3 fL (9.4-12.4); Platelet Count 174 K/uL (130-400); RDW Coefficient of Variation 12.7 % (11.5-14.5); RDW Standard Deviation 40.5 fL (36.4-46.3); Red Blood Count 4.59 M/uL (4.70-6.10); White Blood Count 11.59 K/ul (4.8-10.8)
[2022-08-12] MEDS: oxyCODONE HCL IR 5 MG TAB (IMMEDIATE RELEASE) PO PRN ×3 (10:00→23:03)
[2022-08-12 10:08] LABS: BUN Creatinine Ratio 11.7 (10-20); Calcium 9.2 mg/dl (8.6-10.3); Creatinine Clr Calc Pharmacy 91.5 ml/min; Est GFR (African American) 88.6 ml/min; Est GFR (Non-African American) 76.5 ml/min
[2022-08-12] MEDS ORDERED: NALOXONE HCL 0.4 MG/1 ML VIAL/CARP IV PRN ×2 (11:51→16:54)
[2022-08-12] MEDS ORDERED: ePHEDrine sulfate 50 MG/ML AMP IV PRN (11:51)
[2022-08-12] MEDS ORDERED: LABETALOL HCL IV 5 MG/ML 20ML IV PRN (11:51)
[2022-08-12] MEDS ORDERED: ATROPINE SULFATE 0.1 MG/ML 10ML SYR IV PRN (11:51)
[2022-08-12] MEDS ORDERED: FLUMAZENIL 0.1 MG/1 ML 10 ML VIAL IV PRN (11:51)
[2022-08-12] MEDS ORDERED: PROMETHAZINE HCL 12.5 MG in SODIUM CHLORIDE 0.9% 50 ML IV PRN ×2 (11:51→16:54)
[2022-08-12] MEDS ORDERED: ONDANSETRON INJ 2 MG/ML 2 ML VIAL IV PRN ×2 (11:51→16:54)
--- NOTE | 2022-08-12 12:21 | History & Physical Bridge Note ---
Date of Service August 12, 2022 History & Physical Bridge Note I have examined the patient, reviewed the History & Physical and in the interval since the performance of the History & Physical I have noted the following changes of clinical significance: no changes noted Revision decompression fusion L3-L5
[2022-08-12] MEDS ORDERED: CLINDAMYCIN 900 MG/D5W 50 ML BAG IV ONE (12:27)
[2022-08-12] MEDS ORDERED: BUPIVACAINE/EPINEPHRINE 0.25% 1:200,000 30 ML VIAL ONE (12:43)
[2022-08-12] MEDS ORDERED: fentaNYL citrate PF 100 MCG/2 ML VIAL ONE (12:45)
[2022-08-12] MEDS ORDERED: MIDAZOLAM HCL 1 MG/ML 2ML VIAL ONE (12:45)
[2022-08-12] MEDS ORDERED: LIDOCAINE 2% 2 ML VIAL/AMP(20MG/ML) INFIL ONE (12:46)
[2022-08-12] MEDS ORDERED: PROPOFOL IV EMULSION 10 MG/ML 20 ML VIAL IV ONE (12:46)
[2022-08-12] MEDS ORDERED: DEXAMETHASONE SOD INJ 4 MG/ML VIAL ONE (12:46)
[2022-08-12] MEDS ORDERED: ONDANSETRON INJ 2 MG/ML 2 ML VIAL ONE (12:46)
[2022-08-12] MEDS ORDERED: GLYCOPYRROLATE 0.2 MG/ML VIAL ONE (12:46)
[2022-08-12] MEDS ORDERED: FLOSEAL HEMOSTATIC MATRIX 10ML TOP ONE (13:39)
[2022-08-12] MEDS ORDERED: ROCURONIUM BROMIDE 10 MG/ML 5 ML VIAL IV ONE (13:45)
[2022-08-12] MEDS ORDERED: SUGAMMADEX SODIUM 200 MG/2 ML VIAL IV ONE (14:50)
--- NOTE | 2022-08-12 15:03 | Operative Report ---
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 Removal of posterior instrumentation L3-L5. #2 exploration of fusion L3-L5. #3 revision decompression L4-5. #4 revision interbody fusion L4-L5. #5 placement posterior instrumentation L3-L5 per #6 placement of Spira 13 x 26 mm at L4-L5. #7 placement infuse collagen sponge from mass graft in the posterior lateral gutters and I factor interbody space. Surgeon Petr Malone, Court Manager Hannah Smith Estimated Blood Loss 200 Findings Consistent with Post-Op Diagnosis Specimens none Indications This is a 52-year-old male that presents with a marked clinical status over the past several weeks with worsening back pain and bilateral leg pain. His markedly limiting in nature with inability to ambulate. Imaging demonstrates development of a nonunion failed fusion predominantly at the L4-L5 level. Subsequent is here for surgical intervention. Description of Procedure Patient was met with identified informed consent obtained. Patient was then taken to the operative suite underwent a patient placed in a prone position on the Livan table atop the Kevyn frame. All bony prominences well-padded eyes inspected to ensure no external pressure placed upon the. This point lumbar spine was prepped and draped no sterile fashion. Utilizing the previous incision site part sharp dissection with the assistance of Bovie cautery was formed down to and exposing the remaining lamina and the instrumentation from L3-L5. And then proceeded move the hardware bilaterally. The screws were definitely loose particular at the L5 1 levels bilaterally. The fusion mass was immature at best. There is continued motion across both levels. I then performed a revision decompression L4-L5 to remove any additional neural compression. I then performed a revision interbody fusion L4-L5 by way of a transforaminal approach on the right. Endplates are curetted to subcortically and bone and a 13 x 26 mm Spira cage filled with I factor tapped into position. I then replaced the screws at L3-L4-L5 bilaterally including cement for the L5 screws bilaterally. He demonstrated marked improvement purchase. Proper sized gabby was then placed and locked in position bilaterally. The transverse processes of L3-L4-L5 were then burred to subcortically bone. Infuse bone sponge from mass graft was placed in the posterior gutters. 15 round RAMIREZ drain inserted. Incision was then closed with 1 Vicryl to fascia 2-0 Vicryl subcutaneously and 4 Monocryl for final skin closure. Steri-Strip sterile dressing placed. Patient awakened taken to PACU stable condition. Please note spinal cord monitoring visualized at the procedure no changes noted. Lastly Hannah Smith was present at the entire surgeon while the patient positioning problems complex portions of the surgery and final skin closure. I attest to the content of the Intraoperative Record and any orders documented therein. Any exceptions are noted below.
[2022-08-12] MEDS: fentaNYL citrate PF 100 MCG/2 ML VIAL IV PRN ×4 (15:23→15:38)
[2022-08-12] MEDS: HYDROmorphone INJ 1 MG/ML SYRINGE IV PRN ×9 (15:42→21:24)
[2022-08-12] MEDS ORDERED: diphenhydrAMINE Capsule 25 MG CAP PO PRN (16:54)
[2022-08-12] MEDS ORDERED: MAGNESIUM HYDROXIDE SUSP 30 ML UDC PO PRN (16:54)
[2022-08-12] MEDS ORDERED: LORazepam 2 MG/1 ML VIAL IV PRN (16:54)
[2022-08-12] MEDS ORDERED: ALUMINUM/MAGNESIUM SUSP 30 ML UDC PO PRN (16:54)
[2022-08-12] MEDS ORDERED: METOCLOPRAMIDE HCL INJ 5 MG/ML 2 ML VIAL IV PRN (16:54)
[2022-08-12] MEDS ORDERED: SOD PHOSPHATE/SOD BIPHOSPHATE ENEMA 132 ML BTL PR PRN (16:54)
[2022-08-12] MEDS ORDERED: bisacodyL 10 MG SUPP PR PRN (16:54)
[2022-08-12] MEDS ORDERED: DO NOT ADMINISTER FLU VACCINE PRN (16:54)
[2022-08-12] MEDS ORDERED: hydrOXYzine HCl 25 MG TAB PO PRN (16:54)
[2022-08-12] MEDS ORDERED: HYDROmorphone INJ 0.5 MG/0.5 ML SYR IV PRN (16:54)
[2022-08-12] MEDS ORDERED: DO NOT ADMINISTER PNEUMOCOCCAL VACCINE PRN (16:54)
[2022-08-12] MEDS ORDERED: ACETAMINOPHEN 1,000 MG/100 ML VIAL IV PRN (16:54)
[2022-08-12] MEDS ORDERED: ACETAMINOPHEN 500 MG TAB PO PRN (16:54)
[2022-08-12] MEDS ORDERED: FAMOTIDINE 20 MG TAB PO PRN (16:54)
--- NOTE | 2022-08-12 17:02 | Anesthesiology Progress Note ---
Date of Service August 12, 2022 Anesthesia Post Procedure Vital Signs Vital Signs: Temp Pulse Pulse Resp BP BP Pulse Ox 08/12/22 16:52 36.7 C 88 18 139/81 94 08/12/22 16:35 86 12 134/80 97 08/12/22 16:25 83 15 131/74 97 08/12/22 16:15 80 12 163/85 H 98 08/12/22 16:05 82 14 148/73 H 98 08/12/22 15:55 87 12 138/86 98 08/12/22 15:45 89 12 160/92 H 98 08/12/22 15:35 89 13 148/89 H 99 08/12/22 15:25 90 18 139/94 100 08/12/22 15:17 36.1 C L 103 H 15 142/78 H 100 08/12/22 11:17 36.8 C 78 20 163/99 H 94 08/12/22 07:59 36.6 C 75 18 169/90 H 95 08/12/22 01:08 160/88 H 08/11/22 21:30 37.1 C 68 18 95 O2 Del Method O2 Flow Rate 08/12/22 16:52 Room Air 08/12/22 16:35 Room Air 08/12/22 16:25 Room Air 08/12/22 16:15 Room Air 08/12/22 16:05 Room Air 08/12/22 15:55 Room Air 08/12/22 15:45 Room Air 08/12/22 15:35 Oxymask 08/12/22 15:25 Oxymask 08/12/22 15:17 Oxymask 08/12/22 11:17 Room Air 08/12/22 07:59 Room Air 08/12/22 01:08 08/11/22 21:30 Room Air Pain Intensity Lower Back: Pain Intensity: 3 Transfer of Care Handoff Completed per policy Notes Mental Status: alert / awake / arousable Patient Amnestic to Procedure: Yes Nausea / Vomiting: adequately controlled Pain: adequately controlled Airway Patency, RR, SpO2: stable & adequate BP & HR: stable & adequate Hydration State: stable & adequate Anesthetic Complications: no major complications apparent
--- NOTE | 2022-08-12 17:20 | Billing Data ---
Date of Service August 12, 2022 Coding Level of Care Code 07452 SUB INP/OBS CARE MIN Comment 232 - disregard 233, thanks!
--- NOTE | 2022-08-12 17:20 | Billing Data ---
Date of Service August 12, 2022 Coding Level of Care Code 95413 SUB INP/OBS CARE MIN
[2022-08-12] MEDS: ONDANSETRON 4 MG OD TAB PO PRN (17:31)
[2022-08-12] MEDS: LORazepam 0.5 MG TAB PO PRN (19:39)
[2022-08-12] MEDS: SOFOSBUVIR/VELPATASVIR 400mg/100mg TAB PO SCH (21:26)
[2022-08-12] MEDS: DOCUSATE SODIUM/SENNA 50/8.6MG TAB PO SCH (21:26)
[2022-08-12] MEDS: CLINDAMYCIN/D5W 600 MG/50 ML BAG IV SCH (21:26)
[2022-08-13] MEDS: LACTATED RINGER'S 1,000 ML IV SCH ×2 (00:07→07:23)
[2022-08-13] MEDS: HYDROmorphone INJ 1 MG/ML SYRINGE IV PRN ×7 (01:01→21:47)
[2022-08-13] MEDS: LORazepam 0.5 MG TAB PO PRN (04:02)
[2022-08-13] MEDS: CLINDAMYCIN/D5W 600 MG/50 ML BAG IV SCH (04:03)
[2022-08-13] MEDS: POLYETHYLENE (MIRALAX) 17 GM PACK PO SCH ×3 (06:08→18:09)
[2022-08-13 08:10] LABS: Basophils # (auto) 0.02 K/uL (0-0.2); Basophils % (auto) 0.2 %; Eosinophils # (auto) 0.01 K/uL (0-0.50); Eosinophils % (auto) 0.1 %; Hematocrit (blood only) 36.2 % (42.0-52.0); Hemoglobin 12.5 g/dl (14.0-18.0); Immature Granulocytes # (auto) 0.03 K/uL (0.01-0.20); Immature Granulocytes % (auto) 0.2 %; Lymphocytes # (auto) 1.14 K/uL (1.2-3.4); Lymphocytes % (auto) 9.5 %; Mean Corpuscular Hemoglobin 30.4 pg (25.0-34.0); Mean Corpuscular Hgb Conc 34.5 g/dL (32.0-36.0); Mean Corpuscular Volume 88.1 fL (80.0-100.0); Mean Platelet Volume 10.4 fL (9.4-12.4); Monocytes # (auto) 1.08 K/uL (0.11-0.59); Neutrophils # (auto) 9.76 K/uL (1.40-6.50); Platelet Count 180 K/uL (130-400); RDW Coefficient of Variation 12.5 % (11.5-14.5); RDW Standard Deviation 40.2 fL (36.4-46.3); Red Blood Count 4.11 M/uL (4.70-6.10); White Blood Count 12.04 K/ul (4.8-10.8)
--- NOTE | 2022-08-13 08:28 | Orthopedic Progress Note ---
Date of Service August 13, 2022 Assessment & Plan (1) Chronic back pain greater than 3 months duration: Plan: At this time initiate physical therapy monitor RAMIREZ operatively discharge home next few days. Admission and Anticipated Discharge Date Admission Date: August 08, 2022 Subjective Pain controlled leg pain improved Physical Exam Physical Exam: Patient is in bed at this time. Is constricted testing. Results & Data Vital Signs (Past 12 Hours) Vital Signs Temp Pulse Resp BP Pulse Ox O2 Del Method 08/13/22 07:48 36.9 C 91 H 18 164/93 H 96 Room Air 08/13/22 05:33 36.9 C 95 H 16 164/92 H 96 Room Air
[2022-08-13] MEDS ORDERED: HYDROmorphone INJ 1 MG/ML SYRINGE IV ONE (08:51)
[2022-08-13] MEDS: LANTUS PER UNIT CHARGE SC SCH (09:03)
[2022-08-13] MEDS: INSULIN ASPART PER UNIT CHARGE SC SCH ×4 (09:03→21:40)
[2022-08-13] MEDS: dexAMETHasone 6 MG in SYRINGE 0 ML IV SCH (09:06)
[2022-08-13] MEDS: CYCLOBENZAPRINE HCL 10 MG TAB PO SCH ×3 (09:08→20:28)
--- NOTE | 2022-08-13 09:09 | Hospitalist Progress Note ---
Date of Service August 13, 2022 Assessment & Plan (1) Cauda equina syndrome: (2) Acute exacerbation of chronic low back pain: (3) Lumbar radiculopathy: (4) Diabetes: (5) Chronic hepatitis C: Plan Bird is a 52 y/o M with PMHx of cauda equina syndrome and lumbar disc herniation with severe spinal stenosis/associated radiculopathy of L3-L4 and L4-L5 s/p lumbar decompression + spinal fusion (Dr. Malone 01/14/22) who presented with acute exacerbation of his pain. #history of cauda equina syndrome #acute exacerbation of low back pain #lumbar radiculopathy -Surgery with Dr. 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 Hx of cauda equina syndrome, s/p decompression and lumbar fusion (01/2022) Imaging showed mild lucency along the bilateral L5 pedicle screws, concerning for minimal loosening and neural foraminal narrowing L3-L4 and L4-L5, no significant central canal stenosis -Receiving Tylenol 1,000mg po q8hr, Toradol 15mg IV q6hr PRN, Oxycodone 10mg PO q4hr, Dilaudid 1.0 mg IV q3hr PRN, Flexeril 10mg PO tid -Do not continue this dose of Tylenol as outpatient per discussion with [facility] -Clindamycin IV 600mg q8hr -PT/OT evaluations appreciated OT 6-click 21, safe to return home upon discharge #nausea/vomiting -PRN medications: Zofran, metoclopramide, Ativan #diabetes mellitus, non-insulin dependent -HgbA1C 7.5% on admission. Neuropathy both feet. -Sliding scale insulin -community nutrition educator met with patient, notes he stopped taking home Metformin back in June due to GI side effects -Consider restarting Metformin (extended release form) on discharge for hopefully better tolerance #chronic hepatitis C -Sofosbuvir/velpatasvir 400/100 mg tablet PO q24hr -Do not continue high-dose Tylenol after discharge FENGI: carb consistent/DM2 DVT ppx: SCDs, postoperative Dispo: med/surg, anticipating discharge home after surgery Full code Admission and Anticipated Discharge Date Admission Date: August 08, 2022 Supervising Physician Co-Signing Physician Notes I personally examined the patient and verified all treviño points of history and exam, discussed case, and agree with decision making with Silvia Foote MS4 back pain different but overall better - easier to control. Vitals noted, in general he is awake and alert fatigued but less uncomfortable appearing. breathing unlabored no accessory muscles good effort skin no rashes no pallor or icterus Spinal disease with intractable painpost op. pain control. PT/OT eval and treat. hopefully home once pain better controlled. Subjective Bird is postoperative today. Some of the pain he experienced prior to surgery has improved (less "pressure" around his hardware, less numbness/tingling in his feet), but he does have pain near the surgical site. Overnight he remained afebrile but had cold sweats, several episodes of diarrhea, nausea, and vomiting. He also feels weak and dizzy when transitioning from lying down to sitting up. No syncope or room spinning sensation. As of lunchtime today he didn't have recurrence diarrhea or vomiting and he was able to eat/drink by mouth. No chest pain or shortness of breath. He is using his incentive spirometry. Review of Systems Review of Systems: All systems reviewed & are unremarkable except as noted in HPI & below Physical Exam Physical Exam: Appearance: fatigued, lying in hospital bed, NAD Respiratory: no conversational dyspnea, normal respiratory effort, lungs clear to auscultation bilaterally Cardiovascular: normal S1, S2, no appreciable murmurs extremities warm no LE edema, wearing compression stocks no central or peripheral cyanosis Musculoskeletal: Surgical site: wound is dressed, dry appearing, drain is bloody. Ice pack applied to his surgical site. Neurologic: answering questions appropriately Lymphatic: no calf pain to palpation legs are symmetrical and without erythema or edema Results & Data Results & Data Vital Signs (Past 12 Hours) Vital Signs Temp Pulse Resp BP Pulse Ox O2 Del Method 08/13/22 07:48 36.9 C 91 H 18 164/93 H 96 Room Air 08/13/22 05:33 36.9 C 95 H 16 164/92 H 96 Room Air
[2022-08-13 09:52] LABS: Calcium 8.5 mg/dl (8.6-10.3); Potassium 4.1 mmol/L (3.5-5.1)
[2022-08-13 09:57] LABS: BUN Creatinine Ratio 16.3 (10-20); Creatinine Clr Calc Pharmacy 103.7 ml/min; Est GFR (Non-African American) 88.9 ml/min
[2022-08-13] MEDS: ONDANSETRON 4 MG OD TAB PO PRN (11:07)
--- NOTE | 2022-08-13 13:51 | Pharmacy Report ---
Pharmacy Glycemic Short Note 2 - Date of Service August 13, 2022 - Glycemic Short BSG Results (Last 24 hours): 08/12/22 08/12/22 08/12/22 15:20 17:02 20:54 Glucose POC Glucose 112 H 162 H 246 H 08/13/22 08/13/22 08/13/22 07:49 08:17 12:08 Glucose 257 H POC Glucose 255 H 205 H OUTPATIENT ANTIDIABETIC REGIMEN: * N/A * Metformin 500 mg BIDM stopped d/t side effects * HbA1c: 7.5% (08/08/22) ASSESSMENT: 08/13/22 * BSGs trending upward with addition of dexamethasone 6 mg IV post surgery. * Fasting 255 mg/dL this morning, received 15 units of lantus this AM per scale * Added back carb ratio and tightened correction factor. 08/11/22 * BSGs have been consistently below goal range on as little as 5 units of insulin per day. * Lantus will be held starting tomorrow. Carb coverage removed from Novolog parameters (though pt is NPO currently for OR later today). * If patient's BSGs start to trend up as diet advances post-op, will evaluate the need to resume Lantus/prandial coverage. 08/07 * Mr Deleon is a 52 y/o M with a PMH of T2DM who presents with exacerbation of lower back pain. * BSG on admission was 150 mg/dL. * Lantus 15 units SQ x 1 (half weight-based stress of 2). Scale for tomorrow morning based upon fasting BSG. * Novolog weight-based a 1-2. PLAN FOR INPATIENT GLYCEMIC CONTROL: * Hold outpatient oral diabetes medications * Basal insulin * 15 units SQ this morning- needs reassessed tomorrow AM * Bolus insulin * NovoLog per scale ACHS or Q6hrs while NPO * Goal Range: Low 110 mg/dL - High 140 mg/dL * Correction Factor: 30 mg/dL/unit * Nutritional / Prandial insulin: 1 unit per 10 grams of CHO consumed
[2022-08-13] MEDS: oxyCODONE HCL IR 5 MG TAB (IMMEDIATE RELEASE) PO PRN ×2 (17:11→23:58)
--- NOTE | 2022-08-13 17:41 | Billing Data ---
Date of Service August 13, 2022 Coding Level of Care Code 55558 SUB INP/OBS CARE
[2022-08-13] MEDS: traMADol HCL 50 MG TABLET PO PRN (20:28)
[2022-08-13] MEDS: SOFOSBUVIR/VELPATASVIR 400mg/100mg TAB PO SCH (20:30)
[2022-08-13] MEDS: DOCUSATE SODIUM/SENNA 50/8.6MG TAB PO SCH (20:46)
[2022-08-14] MEDS ORDERED: INSULIN ASPART PER UNIT CHARGE SC SCH (02:00)
[2022-08-14] MEDS: HYDROmorphone INJ 1 MG/ML SYRINGE IV PRN ×3 (02:43→19:17)
[2022-08-14] MEDS: oxyCODONE HCL IR 5 MG TAB (IMMEDIATE RELEASE) PO PRN ×4 (04:40→17:50)
[2022-08-14] MEDS: POLYETHYLENE (MIRALAX) 17 GM PACK PO SCH ×2 (06:25)
[2022-08-14 08:01] LABS: Hemoglobin 11.5 g/dl (14.0-18.0); Mean Corpuscular Hemoglobin 30.3 pg (25.0-34.0); Mean Corpuscular Hgb Conc 33.8 g/dL (32.0-36.0); Mean Corpuscular Volume 89.5 fL (80.0-100.0); Mean Platelet Volume 10.5 fL (9.4-12.4); Platelet Count 183 K/uL (130-400); RDW Coefficient of Variation 12.6 % (11.5-14.5); RDW Standard Deviation 41.4 fL (36.4-46.3); White Blood Count 12.78 K/ul (4.8-10.8)
[2022-08-14 08:23] LABS: BUN Creatinine Ratio 16.5 (10-20); Calcium 8.9 mg/dl (8.6-10.3); Creatinine Clr Calc Pharmacy 104.8 ml/min; Est GFR (African American) 104.3 ml/min; Potassium 3.9 mmol/L (3.5-5.1)
[2022-08-14] MEDS: LANTUS PER UNIT CHARGE SC SCH (08:40)
[2022-08-14] MEDS: dexAMETHasone 6 MG in SYRINGE 0 ML IV SCH (08:40)
[2022-08-14] MEDS: INSULIN ASPART PER UNIT CHARGE SC SCH ×4 (08:40→21:18)
[2022-08-14] MEDS: CYCLOBENZAPRINE HCL 10 MG TAB PO SCH ×3 (08:40→20:54)
--- NOTE | 2022-08-14 09:31 | Hospitalist Progress Note ---
Date of Service August 14, 2022 Assessment & Plan (1) Cauda equina syndrome: (2) Acute exacerbation of chronic low back pain: (3) Lumbar radiculopathy: (4) Diabetes: (5) Chronic hepatitis C: Plan Bird is a 52 y/o M with PMHx of cauda equina syndrome and lumbar disc herniation with severe spinal stenosis/associated radiculopathy of L3-L4 and L4-L5 s/p lumbar decompression + spinal fusion (Dr. Malone 01/14/22) who presented with acute exacerbation of his pain. #history of cauda equina syndrome #acute exacerbation of low back pain #lumbar radiculopathy -Surgery with Dr. 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 Hx of cauda equina syndrome, s/p decompression and lumbar fusion (01/2022) Imaging showed mild lucency along the bilateral L5 pedicle screws, concerning for minimal loosening and neural foraminal narrowing L3-L4 and L4-L5, no significant central canal stenosis -Receiving Tylenol 1,000mg po q8hr, Toradol 15mg IV q6hr PRN, Oxycodone 10mg PO q4hr, Dilaudid 1.0 mg IV q3hr PRN, Flexeril 10mg PO tid -Do not continue this dose of Tylenol as outpatient per discussion with [facility] -PT/OT evaluations appreciated OT 6-click 21, safe to return home upon discharge #nausea/vomiting -PRN medications: Zofran, metoclopramide, Ativan #diabetes mellitus, non-insulin dependent -HgbA1C 7.5% on admission. Neuropathy both feet. -Sliding scale insulin -public health educator met with patient, notes he stopped taking home Metformin back in June due to GI side effects -Consider restarting Metformin (extended release form) on discharge for hopefully better tolerance #chronic hepatitis C -Sofosbuvir/velpatasvir 400/100 mg tablet PO q24hr -Do not continue high-dose Tylenol after discharge FENGI: carb consistent/DM2 DVT ppx: SCDs, postoperative Dispo: med/surg, anticipating discharge home after surgery Full code Admission and Anticipated Discharge Date Admission Date: August 08, 2022 Supervising Physician Co-Signing Physician Notes I personally examined the patient and verified all treviño points of history and exam, discussed case, and agree with decision making with Silvia Foote MS4 multifactorial management of pain helping. hopeful for home tomorrow. discussed anticipated management of pain and significant discharge and risk/benefit of a multimodal approach. Discussed outpatient follow-up, discussed triggers for seeking OMT (most notably if he is about a month from now and still having significant pain, particularly in the context of if it is a month from now and he is having significant pain and orthopedics feels that things are healing well). Vitals noted, in general he is awake and alert overall less uncomfortable appearing. breathing unlabored no accessory muscles good effort skin no rashes no pallor or icterus Spinal disease with intractable painpost op. pain control doing better. PT/OT eval and treat. hopefully home tomorrow Subjective Bird feels much better after sleeping well. His pain, nausea and vomiting is much improved. Able to eat without issues. There is still operative site pain, without radiation. Surgical drain has bloody output, unchanged from yesterday. He is working with PT to learn safe mechanics in anticipation of returning home to recover. We discussed the importance of glycemic control in wound healing. No fevers, chills, headaches, dysuria, or bowel changes. Review of Systems Review of Systems: All systems reviewed & are unremarkable except as noted in HPI & below Physical Exam Physical Exam: Lying supine in bed, NAD Respiratory: no conversational dyspnea breathing room air Cardiovascular: normal S1, S2, no appreciable murmurs extremities warm no cyanosis Gastrointestinal (Abdomen): active bowel sounds, no pain/rebound/guarding to palpation Musculoskeletal: sensation intact to gross touch in LE BL strength 5/5 plantar flexion/dorsiflexion of feet Neurologic: alert, answering questions appropriately Lymphatic: +compression stockings both legs lower extremities symmetrical without erythema or edema Results & Data Results & Data Vital Signs (Past 12 Hours) Vital Signs Temp Pulse Resp BP Pulse Ox O2 Del Method 08/14/22 07:21 36.7 C 85 18 120/64 95 Room Air
--- NOTE | 2022-08-14 09:41 | Orthopedic Progress Note ---
Date of Service August 14, 2022 Assessment & Plan (1) Lumbar radiculopathy: Plan: Patient is doing well postoperatively #2. Continue with GI DVT prophylaxis as well as pain control measures. We will mobilize him with physical therapy and hopefully get him home tomorrow. Admission and Anticipated Discharge Date Admission Date: August 08, 2022 Subjective Patient was seen bedside in room 378. He states he is doing well this morning. He still has back pain but the leg pain has improved. He has had no fevers or chills. He is tolerating p.o. and has had a bowel movement. He denies any other numbness, tingling, paresthesias. Physical Exam Physical Exam: On exam he is alert and oriented. He is able to move his extremities. His strength 5 out of 5 throughout. His calves are supple nontender his abdomen soft nontender. His dressing is clean dry and intact and states she drain is holding suction. He had 40 cc of drainage out in the last 2 shifts. Results & Data Vital Signs (Past 12 Hours) Vital Signs Temp Pulse Resp BP Pulse Ox O2 Del Method 08/14/22 07:21 36.7 C 85 18 120/64 95 Room Air
[2022-08-14] MEDS: traMADol HCL 50 MG TABLET PO PRN ×3 (10:27→21:50)
--- NOTE | 2022-08-14 12:31 | Pharmacy Report ---
Pharmacy Glycemic Short Note 2 - Date of Service August 14, 2022 - Glycemic Short BSG Results (Last 24 hours): 08/13/22 08/13/22 08/14/22 17:01 20:33 02:42 Glucose POC Glucose 208 H 176 H 146 H 08/14/22 08/14/22 08/14/22 07:41 08:07 12:08 Glucose 136 H POC Glucose 140 H 200 H OUTPATIENT ANTIDIABETIC REGIMEN: * N/A * Metformin 500 mg BIDM stopped d/t side effects * HbA1c: 7.5% (08/08/22) ASSESSMENT: 08/14/22 * Fasting blood sugars at goal, but still rising throughout the day - tighten CF/CR at this time. * Patient remains on IV dexamethasone 6mg daily, day 04/10, anticipate DC tomorrow. 08/13/22 * BSGs trending upward with addition of dexamethasone 6 mg IV post surgery. * Fasting 255 mg/dL this morning, received 15 units of lantus this AM per scale * Added back carb ratio and tightened correction factor. 08/11/22 * BSGs have been consistently below goal range on as little as 5 units of insulin per day. * Lantus will be held starting tomorrow. Carb coverage removed from Novolog parameters (though pt is NPO currently for OR later today). * If patient's BSGs start to trend up as diet advances post-op, will evaluate the need to resume Lantus/prandial coverage. 08/07 * Mr Deleon is a 52 y/o M with a PMH of T2DM who presents with exacerbation of lower back pain. * BSG on admission was 150 mg/dL. * Lantus 15 units SQ x 1 (half weight-based stress of 2). Scale for tomorrow morning based upon fasting BSG. * Novolog weight-based a 1-2. PLAN FOR INPATIENT GLYCEMIC CONTROL: * Hold outpatient oral diabetes medications * Basal insulin * 15 units SQ daily (for BSG > 110mg/dl) and with Dexamethasone IV daily * Bolus insulin * NovoLog per scale ACHS or Q6hrs while NPO * Goal Range: Low 110 mg/dL - High 140 mg/dL * Correction Factor: 20 mg/dL/unit * Nutritional / Prandial insulin: 1 unit per 6 grams of CHO consumed
--- NOTE | 2022-08-14 18:33 | Billing Data ---
Date of Service August 14, 2022 Coding Level of Care Code 29492 IN/OBS DISCH 30 MIN/LESS
[2022-08-14] MEDS: SOFOSBUVIR/VELPATASVIR 400mg/100mg TAB PO SCH (19:21)
[2022-08-14] MEDS: DOCUSATE SODIUM/SENNA 50/8.6MG TAB PO SCH (20:54)
[2022-08-15] MEDS: traMADol HCL 50 MG TABLET PO PRN ×2 (01:52→08:43)
[2022-08-15] MEDS: HYDROmorphone INJ 1 MG/ML SYRINGE IV PRN (03:57)
[2022-08-15] MEDS: oxyCODONE HCL IR 5 MG TAB (IMMEDIATE RELEASE) PO PRN ×3 (06:09→10:54)
[2022-08-15 07:08] LABS: Hematocrit (blood only) 31.1 % (42.0-52.0); Hemoglobin 10.5 g/dl (14.0-18.0); Mean Corpuscular Hemoglobin 29.9 pg (25.0-34.0); Mean Corpuscular Hgb Conc 33.8 g/dL (32.0-36.0); Mean Corpuscular Volume 88.6 fL (80.0-100.0); Mean Platelet Volume 10.9 fL (9.4-12.4); Platelet Count 211 K/uL (130-400); RDW Coefficient of Variation 12.2 % (11.5-14.5); RDW Standard Deviation 39.6 fL (36.4-46.3); Red Blood Count 3.51 M/uL (4.70-6.10); White Blood Count 12.54 K/ul (4.8-10.8)
--- NOTE | 2022-08-15 08:13 | Orthopedic Progress Note ---
Date of Service August 15, 2022 Assessment & Plan (1) Intractable low back pain: Plan: Bird is postoperative day 3 status post hardware removal L3-5 with revision fusion. He is orthopedically stable for discharge. I will DC his RAMIREZ drain and dressing. He will follow-up in our office in 2 weeks for an appointment. All questions have been answered in detail with the patient. Admission and Anticipated Discharge Date Admission Date: August 08, 2022 Subjective Bird is postoperative day 3 status post hardware removal L3-5, revision fusion L3-5. Still has some surgical pain and some left lower extremity pain but greatly improved compared to preoperative status. RAMIREZ drain output last shift was 60 cc. He had a bowel movement daily. Yesterday in physical therapy ambulating 400 feet. H&H this morning are 10.5 and 31.1 respectively. He is feels he is ready to go home today. Review of Systems Review of Systems: All systems reviewed & are unremarkable except as noted in HPI & below Physical Exam Physical Exam: He is alert and oriented times No acute distress Lumbar dressing is clean dry intact with functioning RAMIREZ drain Strength is intact bilateral lower extremities Results & Data Vital Signs (Past 12 Hours) Vital Signs Temp Pulse Resp BP Pulse Ox O2 Del Method 08/15/22 07:38 36.1 C L 70 16 118/72 97 Room Air
[2022-08-15] MEDS: INSULIN ASPART PER UNIT CHARGE SC SCH ×2 (08:34→12:49)
[2022-08-15] MEDS: LANTUS PER UNIT CHARGE SC SCH (08:34)
[2022-08-15] MEDS: CYCLOBENZAPRINE HCL 10 MG TAB PO SCH (08:43)
[2022-08-15] MEDS: dexAMETHasone 6 MG in SYRINGE 0 ML IV SCH (08:44)
--- NOTE | 2022-08-15 11:01 | Discharge Summary ---
Date of Service August 15, 2022 Admission HPI Per Admitting Provider This is a 52-year-old male with past medical history significant for prior lumbar surgery history of diabetes mellitus on metformin and history of chronic hepatitis C who presents to the emergency department with acute worsening of low back pain. Patient reports that he has a history of chronic back pain and prior lumbar surgery done. Patient reportedly twisted his back while sitting in a chair and suddenly felt acute shock and subsequent worsening of his lumbar pain. Patient reports that the pain is constant and radiates into his buttock and down his leg and also patient reports some intermittent tingling sensation in the bottom of his feet. Patient had a prior lumbar fusion surgery done by Dr. Malone in January and reports that a redo surgery was being planned at some point in the future during his last visit. Patient had taken [id number] medications without significant improvement in his pain and presents to ED for further evaluation.. Upon evaluation in the ED patient continues to have severe lumbar pain and is unable to ambulate safely and hence is being admitted for further management of his worsening lumbar pain and for obtaining spinal surgery evaluation. Admission Exam Per Admitting Provider Head and ENT no thyroid enlargement trachea midline Cardiovascular S1-S2 are normal no S3 Lungs bilateral air entry fair no wheezing Abdomen soft nondistended positive bowel sounds no rebound tenderness Extremity shows trace edema Neurologically no focal deficits patient has sciatica reported Gait not tested due to significant pain reported by patient Skin shows no rash no cyanosis Principal Diagnosis s/p revision of L3-L5 fusion Discharge Exam Constitutional: well appearing, no acute distress HEENT: normocephalic, no conjunctival injection CV: regular rhythm, no murmur, no LE edema Respiratory: Clear to auscultation bilaterally. No rhonchi, wheezes, or crackles. No increased work of breathing MSK: no gross deformities noted Skin: warm, dry, no rashes Neuro: alert, oriented, no FND noted Discharge Data Allergies Allergy/AdvReac Type Severity Reaction Status Date / Time Penicillins Allergy Intermediate HIVES Verified 08/07/22 00:07 morphine AdvReac Intermediate NAUSEA/VOMI Verified 08/07/22 00:07 TING Consultations 08/07/22 01:29 ED Decision to Admit Stat 08/07/22 01:30 Consult Orthopedic Surgery Stat 08/07/22 09:57 Consult Orthopedic Surgery Routine Procedures Performed Operation Date: 08/12/22 13:05 Actual Procedures p Revision Decompression Fusion L3-L5, Interbody Fusion L4-L5, Bone Morphogenetic Protein, Spinal Cord Monitoring - Petr Malone, DO Ordered Studies 08/06/22 23:45 CT lumbar spine wo con Stat IMPRESSION: No acute lumbar spine fracture. 08/09/22 11:07 MR lumbar spine wo con Urgent IMPRESSION: 1. There is marrow edema at L3, L4, and L5 associated with the hardware, nonspecific, concerning for complicating feature with the hardware such as failure, infection or loosening. 2. No disc herniation, epidural fluid collection or spinal stenosis. Hospital Course (1) Cauda equina syndrome: (2) Acute exacerbation of chronic low back pain: (3) Lumbar radiculopathy: (4) Diabetes: (5) Chronic hepatitis C: Plan Bird is a 52 y/o M with PMHx of cauda equina syndrome and lumbar disc herniation with severe spinal stenosis/associated radiculopathy of L3-L4 and L4-L5 s/p lumbar decompression + spinal fusion (Dr. Malone 01/14/22) who presented with acute exacerbation of his pain. #history of cauda equina syndrome #acute exacerbation of low back pain #lumbar radiculopathy -Surgery with Dr. 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 Hx of cauda equina syndrome, s/p decompression and lumbar fusion (01/2022) Imaging showed mild lucency along the bilateral L5 pedicle screws, concerning for minimal loosening and neural foraminal narrowing L3-L4 and L4-L5, no significant central canal stenosis -Receiving Tylenol 1,000mg po q8hr, Toradol 15mg IV q6hr PRN, Oxycodone 10mg PO q4hr, Dilaudid 1.0 mg IV q3hr PRN, Flexeril 10mg PO tid while hospitalized -Do not continue this dose of Tylenol as outpatient per discussion with [facility] -Discharged with oxycodone and tramadol -PT/OT evaluations appreciated OT 6-click 21, safe to return home upon discharge #diabetes mellitus, non-insulin dependent -HgbA1C 7.5% on admission. Neuropathy both feet. -Sliding scale insulin while hospitalized -public health educator met with patient, notes he stopped taking home Metformin back in June due to GI side effects -Consider restarting Metformin (extended release form) on discharge for hopefully better tolerance -Recommend f/u with PCP to discuss DM management #chronic hepatitis C -Sofosbuvir/velpatasvir 400/100 mg tablet PO q24hr -Do not continue high-dose Tylenol after discharge FENGI: carb consistent/DM2 DVT ppx: SCDs, postoperative Dispo: home Code: full Total Time Total Time Spent Total Time Spent (In Minutes): <30 Discharge Plan Discharge Items Patient Disposition: Home - Self-Care Reason For Visit: LOW BACK PAIN Discharge Diagnosis: Nonunion L4-L5 fusion Activity: As commented below Lifting: No more than 5 pounds Bathing Comment: may shower 08/15 Exercise/Sports: None Weightbearing: Full weightbearing Non-emergency contact: Primary Care Provider Call non-emergency contact if: you have any medication questions Follow-up/Referrals: Petr Malone DO [Surgeon] - (f/u 2 weeks after L3-L5 revision fusion) Bushra Adam CRNP [Primary Care Provider] - (f/u after spinal revision surgery, discuss DM meds) Diet: Carb Consistent or DM2 Addtl Attending Provider Instructions: ACTIVITY RECOMMENDATIONS: SELF CARE INSTRUCTIONS AFTER THORACIC/LUMBAR FUSIONS 1. You may walk to your tolerance. It is good exercise for your legs and back. Expect some back and intermittent leg aches and pains. 2. You may perform "counter-top" level activities (make a sandwich, angel with a project, etc.). 3. No bending or lifting of more than 10 pounds or back twisting of any nature (roll like a log when turning in bed). 4. You may ride in a car for 20-30 minutes at a time. No driving until after your first visit with your doctor. 5. Frequent changes of position and restricting sitting to 30 minutes at a time will help limit the amount of back spasms and stiffness you may experience. 6. You may discontinue the use of ambulatory aids (cane, crutches, etc.) once your strength and confidence allow. 7. You may ethylbenzene cracking supervisor the shower and let water strike your incision when you arrive home at least once daily. Do not take a tub bath, sit in a hot tub or go into a swimming pool until after your first recheck in the office. SPECIAL CARE INSTRUCTIONS: VERY IMPORTANT TO READ AND REVIEW A. Your surgical incision has been closed with a cosmetic suture under the skin that will dissolve in about 6 weeks. In 14 days, you can use a pair of clean scissors and cut the suture that is left outside of the skin at the ends of your incision. 1. The small skin tapes can be removed 7 days after surgery if they have not fallen off by that point. 2. You may keep the wound open to air as much as possible to promote healing after post-op day number 5 unless told otherwise by your doctor. 3. If you think the wound looks like it is becoming infected (redness or worsening drainage) and/or you are experiencing fever, chill or worsening back pain and muscle spasms, contact the office so that we may evaluate you as soon as possible. B. Complications are uncommon, but please contact us if you have any signs or symptoms of: 1. wound infection (fever higher than 102.5 degrees F, redness, separation of wound, drainage, or increasing pain from the incision) 2. blood clots in legs (pain, swelling, redness and warmth in legs) 3. urinary tract infection (fever higher than 102.5 degrees F, burning upon urination or increased frequency of urination) 4. nerve problems (inability to walk on your toes or heels, numbness, loss of bowel or bladder control) 5. any other symptoms that concern you C. Please call the office at if you have any concerns or questions about your operation or recovery. D. No smoking! Smoking drastically decreases the chance of a solid fusion. E. Do not take any anti-inflammatory medications (Indocin, Advil, Motrin, Aspirin, Naprosyn, etc.) as these may inhibit the chance of a solid fusion. Avoid high dose Tylenol due to your hepatitis C. MANAGING PAIN AFTER SPINAL SURGERY 1. Narcotic medication is intended for short-term use and will be provided for surgical pain. Surgical pain usually lasts for a period of 4-6 weeks. Narcotic medication includes Percocet, Vicodin, Darvocet, Tylenol #3 or Lortab. 2. Longer-term pain is more appropriately treated with non-narcotic medication such as Tylenol ES. 3. Muscle spasm is not appropriately treated with narcotics. Muscle relaxers such as Soma, Flexeril or Skelaxin can be used along with Tylenol ES. 4. Remember that we all live with some "aches and pains". This is not unusual or uncommon after an injury or as we get older. a. Back pain is expected and may include muscle spasms for 4 to 6 weeks after surgery. The pain should gradually improve. If the pain worsens for no apparent reason, please contact the office. b. Intermittent leg pain may also be experienced and should not be concerned about unless it worsens for no apparent reason. If so, please contact the office. 5. We will provide appropriate medication within the normal guidelines of their prescribed use. We will also be very cautious and aware of potential abuse and extended duration of patients' medication needs. a. Pain medications are for your comfort and to assist with sleep and rest so that the tissue can heal. They are not provided in order to return to normal activity and should not be used through the day. To do so or worsening pain at night can result from ongoing tissue damage and development of tolerance to the prescribed medicine. 6. Please allow 2-3 days to process refills. Prescriptions will not be mailed but must be picked up at the office. FOLLOW UP VISIT: Keep your scheduled follow-up appointment. Any questions, please call the office at . Pending Studies at Discharge: No Stand-Alone Forms: My [facility], Pain - Opioid Pain Management, Smoking Cessation Medications and DC Order Prescriptions: New tramadol 50 mg tablet 50 mg PO Q6H PRN (Reason: pain, moderate) Qty: 30 0RF oxycodone 5 mg tablet 5 mg PO Q6H PRN (Reason: pain) Qty: 30 0RF Continued metformin 500 mg tablet 500 mg PO BID ondansetron HCl 4 mg tablet 4 mg PO TID PRN (Reason: NAUSEA/VOMITING) sofosbuvir-velpatasvir 400-100 mg tablet 1 tab PO DAILY Discharge Orders: Discharge Order (Routine); Ordered 08/15/22 Ordered By: Nick Duncan/Other Patient Handouts: High Blood Sugar (Hyperglycemia), Hypoglycemia (Low Blood Sugar), Managing Type 2 Diabetes Admission Data Admit Date/Time: 08/08/22 18:31 Attending Provider: Nick Rizzo Admit Provider: Kash Herrera Primary Care Provider: Bushra Adam Other Providers: Petr Malone ; Kash Herrera Other Interventions: Discharge Summary Assessment (RN) Last Done: 08/15/22 12:14 Supervising Physician Co-Signing Physician Notes I personally examined the patient and verified all treviño points of history and exam, discussed case, and agree with decision making with Dr Oneill feels up to going home Vitals noted, in general he is awake and alert overall less uncomfortable appearing. breathing unlabored no accessory muscles good effort skin no rashes no pallor or icterus. walking in halls no distress Spinal disease with intractable painpost op. pain control doing better. PT/OT eval and treat. stable for home. outpt follow up. strongly consider OMT if residual pain >~4wks after surgery/dc Resident Activity Tracking Resident Involvement: Resident Care Provided Care Provided: Adult Hospital Medicine
[2022-08-15] MEDS ORDERED: HYDROmorphone INJ 1 MG/ML SYRINGE IV ONE (12:03)
--- NOTE | 2022-08-15 18:11 | Billing Data ---
Date of Service August 15, 2022 Coding Level of Care Code 51341 IN/OBS DISCH 30 MIN/LESS
== END 2022-08-15 13:06 | disposition home or self-care (01) | DRG 454 ==
LOC: 3N 23:26 → ED 23:26 → SUATTDRO 08-07 01:52 → 3N 08-07 03:21 → SUATTDRO 08-08 18:31